=== PATIENT | male | born 1955 | race Caucasian/White ===

== ENCOUNTER 2022-12-30 08:12 | Outpatient (REF) | payer OTHER, SELFPAY ==
--- NOTE | ~2022-12-30 | XR_ITS ---
EXAMINATION: Bilateral knee x-ray CLINICAL INFORMATION: Rheumatoid arthritis COMPARISON: None. TECHNIQUE: 4 views of each knee FINDINGS: Right: Bone alignment is normal. No fracture or dislocation. Normal femoral tibial joints. Small osteophytes at the patellofemoral joint. Small osteophyte at the quadriceps tendon insertion to the patella. No joint effusion. Atherosclerotic disease. Left: Bone alignment is normal. No fracture or dislocation. Normal femoral tibial joints. Small osteophytes at the patellofemoral joint. Small osteophyte at the quadriceps tendon insertion to the patella and patellar tendon insertion. No joint effusion. XR/XR knee LT 3V IMPRESSION: Mild degenerative changes at the patellofemoral joints.
--- NOTE | ~2022-12-30 | XR_ITS ---
EXAMINATION: XR ELBOW, RIGHT XR ELBOW, LEFT CLINICAL INFORMATION: M06.9 - Rheumatoid arthritis, unspecified COMPARISON: None TECHNIQUE: Each elbow is imaged in 3 views. There is a total of 6 views. FINDINGS: Right: Normal bony mineralization. No fracture, dislocation, or elbow capsular effusion. No joint narrowing or erosive change or chondrocalcinosis. No epicondylar spurring. Minute olecranon spur. Left: There is soft tissue swelling overlying the olecranon. Some fine mineralization is present in region of distal triceps. There is no elbow capsular effusion. Bony mineralization is normal. There is no fracture, dislocation, destructive process, or joint narrowing. No erosive changes. There is small smooth oval mineralization/ossification in region of proximal common extensor tendon. XR/XR elbow LT min 3V IMPRESSION: Right: - Minute olecranon spur. Left: -Soft tissue swelling overlying olecranon. No elbow capsular effusion. -Fine mineralization in region of distal triceps. -Small smooth oval mineralization/ossification in region of proximal common extensor tendon.
--- NOTE | ~2022-12-30 | XR_ITS ---
EXAMINATION: Bilateral hip x-ray CLINICAL INFORMATION: Rheumatoid arthritis COMPARISON: None. TECHNIQUE: 2 views of each hip FINDINGS: Left: There is moderate osteoarthritis with joint space narrowing and osteophyte formation. No erosions. Bone mineralization is normal. No fracture or dislocation. Right: There is severe osteoarthritis with joint space narrowing, osteophyte formation and some subchondral cyst formation. Periarticular soft tissue ossifications inferiorly. No fracture or dislocation. There is atherosclerotic disease. There are degenerative changes of the visualized lower lumbar spine. There is evidence of previous lower abdominal hernia repair with mesh. XR/XR hip RT min 2V IMPRESSION: Bilateral hip osteoarthritis, right greater than left.
--- NOTE | ~2022-12-30 | XR_ITS ---
EXAMINATION: XR ELBOW, RIGHT XR ELBOW, LEFT CLINICAL INFORMATION: M06.9 - Rheumatoid arthritis, unspecified COMPARISON: None TECHNIQUE: Each elbow is imaged in 3 views. There is a total of 6 views. FINDINGS: Right: Normal bony mineralization. No fracture, dislocation, or elbow capsular effusion. No joint narrowing or erosive change or chondrocalcinosis. No epicondylar spurring. Minute olecranon spur. Left: There is soft tissue swelling overlying the olecranon. Some fine mineralization is present in region of distal triceps. There is no elbow capsular effusion. Bony mineralization is normal. There is no fracture, dislocation, destructive process, or joint narrowing. No erosive changes. There is small smooth oval mineralization/ossification in region of proximal common extensor tendon. XR/XR elbow RT min 3V IMPRESSION: Right: - Minute olecranon spur. Left: -Soft tissue swelling overlying olecranon. No elbow capsular effusion. -Fine mineralization in region of distal triceps. -Small smooth oval mineralization/ossification in region of proximal common extensor tendon.
--- NOTE | ~2022-12-30 | XR_ITS ---
EXAMINATION: Bilateral hip x-ray CLINICAL INFORMATION: Rheumatoid arthritis COMPARISON: None. TECHNIQUE: 2 views of each hip FINDINGS: Left: There is moderate osteoarthritis with joint space narrowing and osteophyte formation. No erosions. Bone mineralization is normal. No fracture or dislocation. Right: There is severe osteoarthritis with joint space narrowing, osteophyte formation and some subchondral cyst formation. Periarticular soft tissue ossifications inferiorly. No fracture or dislocation. There is atherosclerotic disease. There are degenerative changes of the visualized lower lumbar spine. There is evidence of previous lower abdominal hernia repair with mesh. XR/XR hip LT min 2V IMPRESSION: Bilateral hip osteoarthritis, right greater than left.
--- NOTE | ~2022-12-30 | XR_ITS ---
EXAMINATION: XR SHOULDER, RIGHT XR SHOULDER, LEFT CLINICAL INFORMATION: M06.9 - Rheumatoid arthritis, unspecified COMPARISON: None TECHNIQUE: There are 3 views of the right shoulder in 4 views of the left shoulder for a total of 7 views. FINDINGS: Right: No acute or healing fracture, dislocation, destructive process. There are degenerative changes glenohumeral joint with joint narrowing and mild subchondral sclerosis and spurring from the inferior glenoid and inferior medial humeral head. No erosive change or visible chondrocalcinosis. The acromioclavicular alignment is normal. There is focal mineralization at the distal rotator cuff likely infraspinatus or conjoined tendon. There is an old healed fracture right posterior seventh rib. Left: No acute or healing fracture, dislocation, or destructive process. Degenerative changes glenohumeral joints are of lesser severity than that on the right. There is a punctate calcification in region of distal infraspinatus tendon. The acromioclavicular alignment is normal. There are mild degenerative changes acromioclavicular joint. XR/XR shoulder RT min 2V IMPRESSION: - Bilateral degenerative changes glenohumeral joints, greater on the right. - Bilateral small focal calcific tendinosis distal rotator cuff, greater on right. - Mild degenerative changes left acromioclavicular joint. - Old healed fracture right posterior seventh rib.
--- NOTE | ~2022-12-30 | XR_ITS ---
EXAMINATION: XR HAND WRIST, RIGHT XR HAND WRIST, LEFT CLINICAL INFORMATION: M06.9 - Rheumatoid arthritis, unspecified COMPARISON: None TECHNIQUE: Each hand and wrist are imaged in 4 large [id number] images to include both areas. A navicular view of each wrist is also obtained. There are a total of 8 views, 4 on each side. FINDINGS: Right: Normal bony mineralization. No periarticular demineralization. Ulnar variance is neutral. The carpus shows no joint narrowing or erosive change or chondrocalcinosis. Mild narrowing third MCP. No erosion. PIP joints are unremarkable. There are osteoarthritic changes involving the DIP joints. No erosions. Left: Normal bony mineralization. No periarticular demineralization. Ulnar variance is neutral. The carpus shows no joint narrowing or erosive change or chondrocalcinosis. MCP and PIP joints are unremarkable. There are mild osteoarthritic changes DIP joints. No erosions. XR/XR hand wrist RT IMPRESSION: -Bilateral wrists unremarkable. No joint narrowing or erosive change. -Mild narrowing right third MCP. No erosion. -Bilateral DIP osteoarthritis, greater on right. No erosions.
--- NOTE | ~2022-12-30 | XR_ITS ---
EXAMINATION: Bilateral foot x-ray CLINICAL INFORMATION: Rheumatoid arthritis COMPARISON: None. TECHNIQUE: 3 views of each foot FINDINGS: Left: Bone alignment is normal. No fracture or dislocation. Joint spaces are normal. There is a small calcaneal spur at the Achilles tendon insertion. Soft tissues are otherwise normal. Right: Bone alignment is normal. No fracture or dislocation. There is osteoarthritis at the first MTP joint with joint space narrowing and osteophyte formation. Joint spaces are otherwise normal. There is a small calcaneal spur at the Achilles tendon insertion. There is soft tissue arterial calcification. XR/XR foot LT min 3V IMPRESSION: Left: Small calcaneal spur. Right: Osteoarthritis of the first MTP joint. Small calcaneal spur.
--- NOTE | ~2022-12-30 | XR_ITS ---
EXAMINATION: Bilateral foot x-ray CLINICAL INFORMATION: Rheumatoid arthritis COMPARISON: None. TECHNIQUE: 3 views of each foot FINDINGS: Left: Bone alignment is normal. No fracture or dislocation. Joint spaces are normal. There is a small calcaneal spur at the Achilles tendon insertion. Soft tissues are otherwise normal. Right: Bone alignment is normal. No fracture or dislocation. There is osteoarthritis at the first MTP joint with joint space narrowing and osteophyte formation. Joint spaces are otherwise normal. There is a small calcaneal spur at the Achilles tendon insertion. There is soft tissue arterial calcification. XR/XR foot RT min 3V IMPRESSION: Left: Small calcaneal spur. Right: Osteoarthritis of the first MTP joint. Small calcaneal spur.
--- NOTE | ~2022-12-30 | XR_ITS ---
EXAMINATION: XR HAND WRIST, RIGHT XR HAND WRIST, LEFT CLINICAL INFORMATION: M06.9 - Rheumatoid arthritis, unspecified COMPARISON: None TECHNIQUE: Each hand and wrist are imaged in 4 large [id number] images to include both areas. A navicular view of each wrist is also obtained. There are a total of 8 views, 4 on each side. FINDINGS: Right: Normal bony mineralization. No periarticular demineralization. Ulnar variance is neutral. The carpus shows no joint narrowing or erosive change or chondrocalcinosis. Mild narrowing third MCP. No erosion. PIP joints are unremarkable. There are osteoarthritic changes involving the DIP joints. No erosions. Left: Normal bony mineralization. No periarticular demineralization. Ulnar variance is neutral. The carpus shows no joint narrowing or erosive change or chondrocalcinosis. MCP and PIP joints are unremarkable. There are mild osteoarthritic changes DIP joints. No erosions. XR/XR hand wrist LT IMPRESSION: -Bilateral wrists unremarkable. No joint narrowing or erosive change. -Mild narrowing right third MCP. No erosion. -Bilateral DIP osteoarthritis, greater on right. No erosions.
--- NOTE | ~2022-12-30 | XR_ITS ---
EXAMINATION: Bilateral knee x-ray CLINICAL INFORMATION: Rheumatoid arthritis COMPARISON: None. TECHNIQUE: 4 views of each knee FINDINGS: Right: Bone alignment is normal. No fracture or dislocation. Normal femoral tibial joints. Small osteophytes at the patellofemoral joint. Small osteophyte at the quadriceps tendon insertion to the patella. No joint effusion. Atherosclerotic disease. Left: Bone alignment is normal. No fracture or dislocation. Normal femoral tibial joints. Small osteophytes at the patellofemoral joint. Small osteophyte at the quadriceps tendon insertion to the patella and patellar tendon insertion. No joint effusion. XR/XR knee standing BI IMPRESSION: Mild degenerative changes at the patellofemoral joints.
--- NOTE | ~2022-12-30 | XR_ITS ---
EXAMINATION: XR LUMBOSACRAL SPINE WITH OBLIQUES CLINICAL INFORMATION: M06.9 - Rheumatoid arthritis, unspecified COMPARISON: None available. TECHNIQUE: Lumbar spine is imaged in 5 views including oblique projections. FINDINGS: Normal lumbar segmentation with 5 nonrib-bearing lumbar vertebrae of normal height and normal lumbar lordosis. No lumbar vertebral compression or destructive process. There are variable multilevel degenerative disc changes lower thoracic and lumbar spine. No erosive change. Mild multilevel vertebral body spurring. There is variable mild bilateral facet degenerative changes. Borderline retrolisthesis of under 3 mm present at L2-L3. Oblique view show no spondylolysis. The SI joints and right sacrum are unremarkable. There are degenerative changes bilateral hips. XR/XR lumbar spine 4V min IMPRESSION: - Multilevel degenerative disc and degenerative facet changes. - No vertebral compression or destructive process. No erosive changes. - Borderline retrolisthesis L2-L3. No spondylolysis.
--- NOTE | ~2022-12-30 | XR_ITS ---
EXAMINATION: XR SHOULDER, RIGHT XR SHOULDER, LEFT CLINICAL INFORMATION: M06.9 - Rheumatoid arthritis, unspecified COMPARISON: None TECHNIQUE: There are 3 views of the right shoulder in 4 views of the left shoulder for a total of 7 views. FINDINGS: Right: No acute or healing fracture, dislocation, destructive process. There are degenerative changes glenohumeral joint with joint narrowing and mild subchondral sclerosis and spurring from the inferior glenoid and inferior medial humeral head. No erosive change or visible chondrocalcinosis. The acromioclavicular alignment is normal. There is focal mineralization at the distal rotator cuff likely infraspinatus or conjoined tendon. There is an old healed fracture right posterior seventh rib. Left: No acute or healing fracture, dislocation, or destructive process. Degenerative changes glenohumeral joints are of lesser severity than that on the right. There is a punctate calcification in region of distal infraspinatus tendon. The acromioclavicular alignment is normal. There are mild degenerative changes acromioclavicular joint. XR/XR shoulder LT min 2V IMPRESSION: - Bilateral degenerative changes glenohumeral joints, greater on the right. - Bilateral small focal calcific tendinosis distal rotator cuff, greater on right. - Mild degenerative changes left acromioclavicular joint. - Old healed fracture right posterior seventh rib.
--- NOTE | ~2022-12-30 | XR_ITS ---
EXAMINATION: Bilateral knee x-ray CLINICAL INFORMATION: Rheumatoid arthritis COMPARISON: None. TECHNIQUE: 4 views of each knee FINDINGS: Right: Bone alignment is normal. No fracture or dislocation. Normal femoral tibial joints. Small osteophytes at the patellofemoral joint. Small osteophyte at the quadriceps tendon insertion to the patella. No joint effusion. Atherosclerotic disease. Left: Bone alignment is normal. No fracture or dislocation. Normal femoral tibial joints. Small osteophytes at the patellofemoral joint. Small osteophyte at the quadriceps tendon insertion to the patella and patellar tendon insertion. No joint effusion. XR/XR knee RT 3V IMPRESSION: Mild degenerative changes at the patellofemoral joints.
[2022-12-30 09:57] LABS: MANUAL DIFF FLAG NO
[2022-12-30 10:20] LABS: MN% 33.1 %; PMN% 66.9 %; RBC Synovial Fluid 0.115 X10*6/uL
[2022-12-30 10:43] LABS: Basophils Absolute Auto 0.1 X10*3/uL (0.0-0.2); Basophils Percent Auto 0.8 % (0-2); Eosinophils Absolute Auto 0.4 X10*3/uL (0.0-0.4); Eosinophils Percent Auto 5.6 % (0-4); Hemoglobin 12.9 g/dl (14.0-18.0); Imm Gran Abs Auto 0.03 X10*3/uL (0.00-0.03); Imm Gran Pct Auto 0.4 % (0.0-0.4); Lymphocytes Absolute Auto 0.9 X10*3/uL (1.2-4.9); Lymphocytes Percent Auto 12.4 % (20-40); Mean Corpuscular HGB Conc 33.1 g/dl (31.0-36.0); Mean Corpuscular Hemoglobin 30.9 pg (27.0-33.0); Mean Corpuscular Volume 93.3 fL (80.0-98.0); Mean Platelet Volume 11.6 fL (9.4-12.4); Monocytes Absolute Auto 0.7 X10*3/uL (0.1-1.2); Monocytes Percent Auto 9.3 % (2-11); Neutrophils Absolute Auto 5.1 x10*3/uL (2.0-8.3); Neutrophils Percent Auto 71.5 % (45-73); Platelet Count 180 X10*3/uL (160-400); Red Blood Count 4.18 X10*6/uL (4.60-5.80); Red Cell Distribution Width 12.1 % (11.0-16.0); White Blood Count 7.1 X10*3/uL (4.8-10.8)
[2022-12-30 11:01] LABS: BF Shift QC OK YES; Lymphocytes Synovial Fluid 10 %; Monocytes Synovial Fluid 16 %; Neutrophils Synovial Fluid 74 %
[2022-12-30 11:11] LABS: Alanine Aminotransferase 13 U/L (0-40); Albumin Level 4.1 g/dL (3.5-5.0); Alkaline Phosphatase 63 U/L (39-117); Anion Gap 10 (12-20); Aspartate Amino Transferase 13 U/L (5-37); Bilirubin Total 0.8 mg/dL (0.0-1.0); Blood Urea Nitrogen 10 mg/dL (9-16); C Reactive Protein 0.14 mg/dL (< or = 0.50); Calcium 8.9 mg/dL (8.4-10.2); Carbon Dioxide 29 mmol/L (22-29); Chloride 106 mmol/L (96-108); Estimated Glomerular Filt Rate > 60; Glucose Random 97 mg/dL (60-115); Potassium 4.5 mmol/L (3.3-5.1); Sodium 140 mmol/L (135-145); Total Protein 6.5 g/dL (6.5-8.0); Uric Acid 3.4 mg/dL (3.4-7.0)
[2022-12-30 11:22] LABS: Erythrocyte Sedimentation Rate 10 MM/HR (0-15)
[2022-12-30 11:34] LABS: HBS Num1 0.18 mIU/mL (0-7.99); HBc Num1 0.06 S/CO (0.00-0.79); HBsAGNum1 0.29 S/CO (0.00-0.99); Hepatitis A Antibody IgM 0.19 Index (0-0.79); Hepatitis B Core Antibody Nonreactive (Nonreactive); Hepatitis B Surface Antigen Negative (Negative); ~HepC Num1 0.14 S/CO (0.00-0.79); ~Hepatitis A Antibody IgM Nonreactive (Nonreactive); ~Hepatitis B Surface Antibody NONREACTIVE (Nonreactive); ~Hepatitis C Antibody Nonreactive (Nonreactive)
[2022-12-30 11:39] LABS: Source Synovial Fluid LEFT ELBOW
[2023-01-02 02:03] LABS: TS Negative Control Passed; TS Panel A 8; TS Panel B 8; TS Positive Control Passed; TSpotTB Positive (Negative)
[2023-01-04 00:08] LABS: Prot Elec - Albumin 3.9 g/dL (3.8-4.8); Prot Elec - Alpha1 0.4 g/dL (0.2-0.3); Prot Elec - Alpha2 0.7 g/dL (0.5-0.9); Prot Elec - Beta 1 0.4 g/dL (0.4-0.6); Prot Elec - Beta 2 0.2 g/dL (0.2-0.5); Prot Elec - Total Protein 6.5 g/dL (6.1-8.1)
[2023-01-06 10:59] LABS: Cyclic Citrullinated Peptide >250 UNITS
[2023-01-13 18:33] LABS: IgA 169 mg/dL (70-320); IgG 1059 mg/dL (600-1540); IgM 59 mg/dL (50-300)
== END 2022-12-30 08:13 | disposition home or self-care (01) ==
LOC: HO.LAB 08:12
PROVIDERS: Visit Provider Student in an Organized Health Care Education/Training Program
DX: M70.22 Olecranon bursitis, left elbow (principal); M25.522 Pain in left elbow; M10.9 Gout, unspecified; M06.9 Rheumatoid arthritis, unspecified; M13.0 Polyarthritis, unspecified; M25.50 Pain in unspecified joint; M54.9 Dorsalgia, unspecified; M54.2 Cervicalgia; Z79.899 Other long term (current) drug therapy; Z11.59 Encounter for screening for other viral diseases; Z72.89 Other problems related to lifestyle; Z11.7 Encounter for testing for latent tuberculosis infection
CPT/HCPCS: 36415; 72110; 73030; 73080; 73110; 73130; 73502; 73562; 73564; 73565; 73630; 80053; 82784; 84165; 84550; 85025; 85652; 86140; 86200; 86334; 86431; 86481; 86704; 86706; 86709; 86803; 87070; 87073; 87205; 87340; 89051; 89060; 99202

== ENCOUNTER 2023-02-24 14:10 | Outpatient (AMB) | payer OTHER, SELFPAY ==
[2023-02-24 14:13] VITALS: BP 102/60; PULSE 54; TEMP 36.1; O2SAT 99; BMI 27.2
--- NOTE | 2023-02-24 14:13 | MHC.OFFVIS ---
Intake Vital Signs 02/24/23 14:13 Height 5 ft 10 in Weight 189 lb 6.033 oz BMI 27.2 BP 102/60 Blood Pressure Location Rt brachial Position Sitting Pulse 54 Pulse Source Pulse Oximeter Temp 97.0 F Temp Source Skin Pulse Oximetry (%) 99 Intake Visit Reasons: gout/RA Intake Note: Pt seen today for follow up. C/o right hand and wrist pain. S/p cortisone injections today Marilee Felipe [facility] hand surgeon. States pain is constant every day; hips, knees, ankles Cooperative Extension Agent Required: No Accompanied by: Spouse Sarah Allergies bee pollen Allergy (Mild, Verified 02/24/23 14:17) Unknown codeine Allergy (Mild, Verified 02/24/23 14:17) Unknown honey Allergy (Mild, Verified 02/24/23 14:17) Unknown Medication List - Last Reconciled 02/24/23 by Vanessa Encarnacion MD albuterol sulfate 90 mcg/actuation (Ventolin HFA) 0 mcg inhalation aspirin 81 mg PO DAILY atorvastatin 80 mg PO DAILY bupropion HCl 450 mg PO DAILY calcium carbonate-vitamin D3 600 mg-10 mcg (400 unit) 1 tab PO BID celecoxib (Celebrex) 200 mg PO BID dicyclomine 10 mg PO QID PRN epinephrine IM ONCE PRN ferrous sulfate 325 mg PO DAILY fluticasone propionate 50 mcg/actuation 2 sprays intranasal DAILY hydrocodone-acetaminophen 10-325 mg 1 tab PO BID PRN lactulose 15 mL PO DAILY PRN levothyroxine 125 mcg PO DAILY magnesium oxide 400 mg PO DAILY potassium chloride ER (Klor-Con M) 20 mEq PO TID prednisone 10 mg PO DAILY HPI HPI Comments History of Present Illness Details Patient returns for follow-up after completion of his blood work and x-rays. States that the prednisone taper helped the left elbow swelling, however it came back after prednisone was discontinued. He states that prednisone did not help his other joints much. Today he had a steroid injection in his right hand knuckles by a hand surgeon. He was evaluated by Infectious Disease and a blood test was ordered. He has not been started on treatment. Mentions that he had a CT scan of the lung within the last 2-3 weeks ordered by his PCP. Initial history: This is a 67-year-old male was referred for evaluation of multiple joint pain and positive rheumatoid factor. Patient stated that he has had joint pain for years. He has had neck pain and low back pain for years. He also has right hip pain. Stated that he received intra-articular hip injection about a year ago which provided some moderate relief, he had another injection a few months after which was not helpful. He also received a couple of knee steroid injections, the 1st 1 was helpful and the 2nd 1 was not as helpful. Over the last 1-2 years he has started to have right hand pain and swelling across his MCPs. He also developed a red bump on his right 5th MCP. He also has swelling of his left elbow that is only tender when he leans on that elbow. Per the however he gets intermittent attacks of significant pain and swelling of the elbow. He never procedures for his low back pain by Pain Management. He is on hydrocodone. He is unaware of any family history of autoimmune rheumatic disease. Denies any confirmed history of kidney stones [facility] Medical History (Updated 02/24/23 @ 14:54 by Vanessa Encarnacion MD) Anemia Bradycardia Carotid artery stenosis Central sleep apnea syndrome Coronary arteriosclerosis Ex-smoker Hyperlipidemia Hypothyroidism Irritable bowel syndrome Major depressive disorder Moderate pain Myocardial infarction Neuropathy Osteoarthritis Peripheral vascular disease Polyarthropathy Productive cough Surgical History H/O colonoscopy H/O eye surgery Hx of hand surgery Stented coronary artery Family History Brother Malignant tumor of colon Father Carcinoma of prostate Maternal Grandmother Cancer of unknown origin Social History Alcohol intake: never Patient Tobacco Use Status: Former Tobacco user Current occupational status: retired 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 Review of Systems [facility] Reports back pain, Reports arthralgias, Reports joint swelling and Reports stiffness Physical Exam Vital Signs: Last Vital Signs Temp 97.0 F 02/24/23 14:13 Pulse 54 02/24/23 14:13 BP 102/60 02/24/23 14:13 Pulse Ox 99 02/24/23 14:13 BMI result Body Mass Index 27.2 Const General: cooperative, healthy appearing and comfortable Nutritional Appearance: overweight Orientation/consciousness: patient oriented x3 Limitations: no limitations HEENT Head: Yes normocephalic and Yes atraumatic Mouth: moist mucous membranes Resp Effort & Inspection: normal respiratory effort and able to speak in complete sentences Neuro General: patient oriented x3 Extrem Other: Swelling across his right 3rd MCP, reddish nontender nodule on the dorsal aspect of right 5th MCP Bilateral 1st CMC joint tenderness Left olecranon bursa boggy swelling without erythema warmth or tenderness Dupuytren's contracture of his left hand Normal range of motion of both shoulders with some stiffness Pain for range of motion of his right hip Some swelling and tenderness on the outer aspect of his left 5th MTP Assessment & Plan Assessment & Plan (1) Seropositive rheumatoid arthritis: Comment: ++RF+++CCP dx 01/22 Code(s): M05.9 - Rheumatoid arthritis with rheumatoid factor, unspecified Plan: This is a 67-year-old male who presents for evaluation of multiple swollen and tender joints. Diffuse synovitis on exam. Labs showing positive RF and anti CCP. Left colic renal her bursitis arthrocentesis consistent with inflammatory arthritis no evidence of crystalline arthritis. Will need to start DMARDs however patient has a positive QuantiFERON test. Patient was evaluated by Infectious Disease but has not been started on latent TB yet. His infectious disease specialist is Dr. Dmitriy Desir in [place]. Will await evaluation by Infectious Disease as DMARDs can cause immune suppression and potentially interfere with antituberculous medications. Patient stated he had a recent CT scan of his lungs. Will request records from PCP For now stay on prednisone 10 mg daily. Follow-up in 2 months (2) Positive TB test: Code(s): R76.11 - Nonspecific reaction to tuberculin skin test without active tuberculosis Plan: Management as above Plan I spent 26 minutes reviewing patient's chart, evaluating patient, placing orders counseling patient and documenting in the chart Medications: New prednisone 10 mg PO DAILY 30 tabs 1RF Coding Level of Care Code Est Pt Level 4 (51712) Diagnoses Seropositive rheumatoid arthritis M05.9 Positive TB test R76.11
== END 2023-02-24 14:49 | disposition home or self-care (01) ==
PROVIDERS: PCP Nurse Practitioner Gerontology; Visit Provider Student in an Organized Health Care Education/Training Program
DX: M05.79 Rheumatoid arthritis with rheumatoid factor of multiple sites without organ or systems involvement (principal); R76.11 Nonspecific reaction to tuberculin skin test without active tuberculosis
CPT/HCPCS: 99214

== ENCOUNTER → 2023-02-24 14:10 | Outpatient (BNVA) | payer OTHER, SELFPAY | PROVIDERS: PCP Nurse Practitioner Gerontology; Visit Provider Student in an Organized Health Care Education/Training Program | DX: M05.9 Rheumatoid arthritis with rheumatoid factor, unspecified (principal); R76.11 Nonspecific reaction to tuberculin skin test without active tuberculosis | CPT/HCPCS: 99212 ==

== ENCOUNTER 2023-04-27 14:14 | Outpatient (AMB) | payer MEDICARE, MEDICAID, SELFPAY ==
[2023-04-27 14:26] VITALS: BP 122/66; PULSE 87; TEMP 35.9; O2SAT 95; BMI 26.9
--- NOTE | 2023-04-27 14:26 | MHC.OFFVIS ---
Intake Vital Signs 04/27/23 14:26 Height 5 ft 10 in Weight 187 lb 6.287 oz BMI 26.9 BP 122/66 Blood Pressure Location Rt brachial Position Sitting Pulse 87 Pulse Source Pulse Oximeter Temp 96.6 F L Temp Source Skin Pulse Oximetry (%) 95 Intake Visit Reasons: RA Intake Note: Pt seen today for RA follow up. States he was taking celebrex 100mg and then at the pharmacy he was given 200mg. He is unsure which dose to continue; he ran out of 200mg tablets but has 100mg tablets at home still. He also reports last week he got a cortisone injection with NEOS right hip. 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 Accompanied by: Spouse Allergies bee pollen Allergy (Mild, Verified 04/27/23 14:36) Unknown codeine Allergy (Mild, Verified 04/27/23 14:36) Unknown honey Allergy (Mild, Verified 04/27/23 14:36) Unknown Medication List - Last Reconciled 04/27/23 by Vanessa Encarnacion MD albuterol sulfate 90 mcg/actuation (Ventolin HFA) 0 mcg inhalation aspirin 81 mg PO DAILY atorvastatin 80 mg PO DAILY bupropion HCl 450 mg PO DAILY calcium carbonate-vitamin D3 600 mg-10 mcg (400 unit) 1 tab PO BID celecoxib (Celebrex) 200 mg PO BID celecoxib 100 mg PO BID dicyclomine 10 mg PO QID PRN epinephrine IM ONCE PRN ferrous sulfate 325 mg PO DAILY fluticasone propionate 50 mcg/actuation 2 sprays intranasal DAILY hydrocodone-acetaminophen 10-325 mg 1 tab PO BID PRN lactulose 15 mL PO DAILY PRN levothyroxine 125 mcg PO DAILY magnesium oxide 400 mg PO DAILY potassium chloride ER (Klor-Con M) 20 mEq PO TID HPI HPI Comments History of Present Illness Details 68-year-old male with seropositive RA returns for follow-up. Patient states that he is doing fairly well currently. Recently he received steroid injection in his hip which was not very helpful. He received a steroid injection in his right hand knuckles a few months ago in in they were helpful. He remains on prednisone 10 mg daily which is somewhat helpful. Patient was evaluated once by Infectious Disease and was not started on latent TB treatment. Initial history: This is a 67-year-old male was referred for evaluation of multiple joint pain and positive rheumatoid factor. Patient stated that he has had joint pain for years. He has had neck pain and low back pain for years. He also has right hip pain. Stated that he received intra-articular hip injection about a year ago which provided some moderate relief, he had another injection a few months after which was not helpful. He also received a couple of knee steroid injections, the 1st 1 was helpful and the 2nd 1 was not as helpful. Over the last 1-2 years he has started to have right hand pain and swelling across his MCPs. He also developed a red bump on his right 5th MCP. He also has swelling of his left elbow that is only tender when he leans on that elbow. Per the however he gets intermittent attacks of significant pain and swelling of the elbow. He never procedures for his low back pain by Pain Management. He is on hydrocodone. He is unaware of any family history of autoimmune rheumatic disease. Denies any confirmed history of kidney stones [facility] Medical History Ex-smoker Productive cough Moderate pain Polyarthropathy Osteoarthritis Irritable bowel syndrome Peripheral vascular disease Carotid artery stenosis Bradycardia Coronary arteriosclerosis Myocardial infarction Neuropathy Central sleep apnea syndrome Major depressive disorder Anemia Hyperlipidemia Hypothyroidism Surgical History Hx of hand surgery Stented coronary artery H/O eye surgery H/O colonoscopy Family History Brother Malignant tumor of colon Father Carcinoma of prostate Maternal Grandmother Cancer of unknown origin Social History Alcohol intake: never Patient Tobacco Use Status: Former Tobacco user Current occupational status: retired 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 Review of Systems [facility] [place] Reports back pain, Reports arthralgias and Reports stiffness Physical Exam Vital Signs: Last Vital Signs Temp 96.6 F L 04/27/23 14:26 Pulse 87 04/27/23 14:26 BP 122/66 04/27/23 14:26 Pulse Ox 95 04/27/23 14:26 BMI result Body Mass Index 26.9 Const General: cooperative, healthy appearing and comfortable Nutritional Appearance: overweight Orientation/consciousness: patient oriented x3 Limitations: no limitations HEENT Head: Yes normocephalic and Yes atraumatic Mouth: moist mucous membranes Resp Effort & Inspection: normal respiratory effort and able to speak in complete sentences Neuro General: patient oriented x3 Extrem Other: Mild erythema of his right hand MCPs without swelling or tenderness, reddish nontender nodule on the dorsal aspect of right 5th MCP Bilateral 1st CMC joint tenderness Left olecranon bursa boggy swelling without erythema warmth or tenderness Dupuytren's contracture of his left hand Normal range of motion of both shoulders with some stiffness Bilateral knee crepitus Pain for range of motion of his right hip Assessment & Plan Assessment & Plan (1) Seropositive rheumatoid arthritis: Comment: ++RF+++CCP dx 01/22 Code(s): M05.9 - Rheumatoid arthritis with rheumatoid factor, unspecified Plan: This is a 68-year-old male who presents for evaluation of multiple swollen and tender joints. Diffuse synovitis on initial exam. Labs showing high titer positive RF and anti CCP. Left olecranon bursitis arthrocentesis consistent with inflammatory arthritis no evidence of crystalline arthritis. Will need to start DMARDs however patient has a positive QuantiFERON test. Patient was evaluated by Infectious Disease but has not been started on latent TB yet. Patient needs to be started on latent TB treatment 1st before DMARDs can be started His infectious disease specialist is Dr. Dmitriy Desir in [place]. Will await evaluation by Infectious Disease as DMARDs can cause immune suppression and potentially interfere with antituberculous medications. For now stay on prednisone 10 mg daily. Follow-up in 2 months (2) Positive TB test: Code(s): R76.11 - Nonspecific reaction to tuberculin skin test without active tuberculosis Plan: Management as above Plan I spent 26 minutes reviewing patient's chart, evaluating patient, counseling patient and documenting in the chart Coding Level of Care Code Est Pt Level 4 (72523) Diagnoses Seropositive rheumatoid arthritis M05.9 Positive TB test R76.11
== END 2023-04-27 15:09 | disposition home or self-care (01) ==
PROVIDERS: PCP Nurse Practitioner Gerontology; Visit Provider Student in an Organized Health Care Education/Training Program
DX: M05.89 Other rheumatoid arthritis with rheumatoid factor of multiple sites (principal); R76.11 Nonspecific reaction to tuberculin skin test without active tuberculosis
CPT/HCPCS: 99213

== ENCOUNTER → 2023-04-27 14:14 | Outpatient (BNVA) | payer MEDICARE, MEDICAID, SELFPAY | PROVIDERS: PCP Nurse Practitioner Gerontology; Visit Provider Student in an Organized Health Care Education/Training Program | DX: M05.9 Rheumatoid arthritis with rheumatoid factor, unspecified (principal); R76.11 Nonspecific reaction to tuberculin skin test without active tuberculosis; Z79.52 Long term (current) use of systemic steroids | CPT/HCPCS: 99212 ==

== ENCOUNTER 2023-08-24 15:32 | Outpatient (AMB) | payer OTHER, SELFPAY ==
[2023-08-24 15:38] VITALS: BP 110/64; PULSE 63; TEMP 35.8; O2SAT 94; BMI 28.1
--- NOTE | 2023-08-24 15:38 | MHC.OFFVIS ---
Intake Vital Signs 08/24/23 15:38 Height 5 ft 10 in Weight 195 lb 15.855 oz BMI 28.1 BP 110/64 Blood Pressure Location Rt brachial Position Sitting Pulse 63 Pulse Source Pulse Oximeter Temp 96.5 F L Temp Source Skin Pulse Oximetry (%) 94 Oxygen Delivery Method Room Air Intake Visit Reasons: RA Intake Note: Patient last seen 04/27/23 presents today for follow up. Reports new medication trelegy inhaler. 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 Accompanied by: Spouse Allergies bee pollen Allergy (Mild, Verified 08/24/23 15:40) Unknown codeine Allergy (Mild, Verified 08/24/23 15:40) Unknown honey Allergy (Mild, Verified 08/24/23 15:40) Unknown Medication List - Last Reconciled 08/24/23 by Vanessa Encarnacion MD albuterol sulfate 90 mcg/actuation (Ventolin HFA) 0 mcg inhalation aspirin 81 mg PO DAILY atorvastatin 80 mg PO DAILY bupropion HCl 450 mg PO DAILY calcium carbonate-vitamin D3 600 mg-10 mcg (400 unit) 1 tab PO BID celecoxib (Celebrex) 200 mg PO BID celecoxib 100 mg PO BID dicyclomine 10 mg PO QID PRN epinephrine IM ONCE PRN ferrous sulfate 325 mg PO DAILY fluticasone propionate 50 mcg/actuation 2 sprays intranasal DAILY bucmiyghpdy-twrpyulex-vabjrzqm 100-62.5-25 mcg (Trelegy Ellipta) 1 ea inhalation DAILY hydrocodone-acetaminophen 10-325 mg 1 tab PO BID PRN lactulose 15 mL PO DAILY PRN levothyroxine 125 mcg PO DAILY magnesium oxide 400 mg PO DAILY potassium chloride ER (Klor-Con M) 20 mEq PO TID prednisone 10 mg PO DAILY HPI HPI Comments History of Present Illness Details 68-year-old male with seropositive RA returns for follow-up. Patient states that he is doing fairly well currently. He is on prednisone 10 mg daily. He continues to get intermittent joint pain and swelling including his wrists, fingers, shoulders. Bilateral hip pain, worse on the right. Initial history: This is a 67-year-old male was referred for evaluation of multiple joint pain and positive rheumatoid factor. Patient stated that he has had joint pain for years. He has had neck pain and low back pain for years. He also has right hip pain. Stated that he received intra-articular hip injection about a year ago which provided some moderate relief, he had another injection a few months after which was not helpful. He also received a couple of knee steroid injections, the 1st 1 was helpful and the 2nd 1 was not as helpful. Over the last 1-2 years he has started to have right hand pain and swelling across his MCPs. He also developed a red bump on his right 5th MCP. He also has swelling of his left elbow that is only tender when he leans on that elbow. Per the however he gets intermittent attacks of significant pain and swelling of the elbow. He never procedures for his low back pain by Pain Management. He is on hydrocodone. He is unaware of any family history of autoimmune rheumatic disease. Denies any confirmed history of kidney stones [facility] Medical History Ex-smoker Productive cough Moderate pain Polyarthropathy Osteoarthritis Irritable bowel syndrome Peripheral vascular disease Carotid artery stenosis Bradycardia Coronary arteriosclerosis Myocardial infarction Neuropathy Central sleep apnea syndrome Major depressive disorder Anemia Hyperlipidemia Hypothyroidism Surgical History Hx of hand surgery Stented coronary artery H/O eye surgery H/O colonoscopy Family History Brother Malignant tumor of colon Father Carcinoma of prostate Maternal Grandmother Cancer of unknown origin Social History Alcohol intake: never Patient Tobacco Use Status: Former Tobacco user Current occupational status: retired 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 Review of Systems [facility] [place] Reports back pain, Reports arthralgias and Reports stiffness Physical Exam Vital Signs: Last Vital Signs Temp 96.5 F L 08/24/23 15:38 Pulse 63 08/24/23 15:38 BP 110/64 08/24/23 15:38 Pulse Ox 94 08/24/23 15:38 Oxygen Delivery Method Room Air 08/24/23 15:38 BMI result Body Mass Index 28.1 Const General: cooperative, healthy appearing and comfortable Nutritional Appearance: overweight Orientation/consciousness: patient oriented x3 Limitations: no limitations HEENT Head: Yes normocephalic and Yes atraumatic Mouth: moist mucous membranes Resp Effort & Inspection: normal respiratory effort and able to speak in complete sentences Auscultation: clear to auscultation bilaterally Neuro General: patient oriented x3 Extrem Other: Mild erythema of his right hand MCPs without swelling or tenderness, reddish nontender nodule on the dorsal aspect of right 5th MCP Bilateral 1st CMC joint tenderness Dupuytren's contracture of his left hand Normal range of motion of both shoulders with some stiffness Bilateral knee crepitus Painful range of motion of his right hip No ankle swelling or tenderness bilaterally Negative MTP squeeze test bilaterally Assessment & Plan Assessment & Plan (1) Seropositive rheumatoid arthritis: Comment: ++RF+++CCP dx 01/22 left olecranon synovial fluid inflammatory Code(s): M05.9 - Rheumatoid arthritis with rheumatoid factor, unspecified Plan: This is a 68-year-old male with seropositive RA who presents for follow-up. Doing fairly well on prednisone 10 mg daily but gained about 8 lb. Will need to start DMARDs. Discussed risks and benefits of methotrexate. Patient agreed to proceed. Will start methotrexate 15 mg weekly for 2 weeks then 20 mg once weekly. Start folic acid 1 mg daily. Continue prednisone 10 mg daily for 1 more week then 7.5 mg daily for 2 weeks and remain on 5 mg daily Labs today and before next visit in 2 months (2) Positive TB test: Code(s): R76.11 - Nonspecific reaction to tuberculin skin test without active tuberculosis Plan: T spot test was positive at our lab. QuantiFERON test was negative subsequently. Patient did not get started on latent TB treatment. 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 Discussed different side effects. Patient has 1 or 2 drinks a week at the most. Plan I spent 26 minutes reviewing patient's chart, evaluating patient, ordering diagnostic workup, counseling patient & his and documenting in the chart Orders: Orders Complete Blood Count Auto Diff 2 Months Z79.631 - terminal operations supervisor (current) use of antimetabolite agent Comprehensive Met. Panel 2 Months Z79.631 - long-term (current) use of antimetabolite agent C Reactive Protein Today Z79.631 - long-term (current) use of antimetabolite agent Erythrocyte Sedimentation Rate Today Z79.631 - long-term (current) use of antimetabolite agent T Spot TB Today R76.11 - Nonspecific reaction to tuberculin skin test without active tuberculosis C Reactive Protein 2 Months Z79.631 - terminal operations supervisor (current) use of antimetabolite agent Erythrocyte Sedimentation Rate 2 Months Z79.631 - terminal operations supervisor (current) use of antimetabolite agent Complete Blood Count Auto Diff Today Z79.631 - terminal operations supervisor (current) use of antimetabolite agent Comprehensive Met. Panel Today Z79.631 - long-term (current) use of antimetabolite agent Medications: New folic acid 1 mg PO DAILY 90 tabs 1RF methotrexate sodium Take 6 tabs once weekly for 2 weeks then 8 tabs once weekly 64 tabs 0RF prednisone Take 3 tabs daily for 2 weeks then remain on 2 tabs daily 100 tabs 0RF Coding Level of Care Code Est Pt Level 4 (55966) Diagnoses Seropositive rheumatoid arthritis M05.9 Positive TB test R76.11 long-term methotrexate user Z79.631
== END 2023-08-24 16:16 | disposition home or self-care (01) ==
PROVIDERS: PCP Nurse Practitioner Gerontology; Visit Provider Student in an Organized Health Care Education/Training Program
DX: M05.79 Rheumatoid arthritis with rheumatoid factor of multiple sites without organ or systems involvement (principal); R76.11 Nonspecific reaction to tuberculin skin test without active tuberculosis; Z79.631 Long term (current) use of antimetabolite agent
CPT/HCPCS: 99214

== ENCOUNTER 2023-08-24 15:32 | Outpatient (REF) | payer OTHER, SELFPAY ==
[2023-08-24 16:48] LABS: MANUAL DIFF FLAG NO
[2023-08-24 16:56] LABS: Basophils Absolute Auto 0.1 X10*3/uL (0.0-0.2); Basophils Percent Auto 0.4 % (0-2); Eosinophils Absolute Auto 0.1 X10*3/uL (0.0-0.4); Eosinophils Percent Auto 0.9 % (0-4); Hematocrit 41.1 % (42.0-52.0); Hemoglobin 13.5 g/dl (14.0-18.0); Imm Gran Abs Auto 0.17 X10*3/uL (0.00-0.03); Imm Gran Pct Auto 1.5 % (0.0-0.4); Lymphocytes Absolute Auto 0.7 X10*3/uL (1.2-4.9); Lymphocytes Percent Auto 5.8 % (20-40); Mean Corpuscular HGB Conc 32.8 g/dl (31.0-36.0); Mean Corpuscular Hemoglobin 32.1 pg (27.0-33.0); Mean Corpuscular Volume 97.6 fL (80.0-98.0); Mean Platelet Volume 10.7 fL (9.4-12.4); Monocytes Absolute Auto 0.6 X10*3/uL (0.1-1.2); Monocytes Percent Auto 5.5 % (2-11); Neutrophils Percent Auto 85.9 % (45-73); Platelet Count 229 X10*3/uL (160-400); Red Blood Count 4.21 X10*6/uL (4.60-5.80); Red Cell Distribution Width 11.9 % (11.0-16.0); White Blood Count 11.7 X10*3/uL (4.8-10.8)
[2023-08-24 17:20] LABS: Alanine Aminotransferase 23 U/L (0-40); Albumin Level 4.1 g/dL (3.5-5.0); Alkaline Phosphatase 64 U/L (39-117); Anion Gap 12 (12-20); Aspartate Amino Transferase 13 U/L (5-37); Bilirubin Total 0.5 mg/dL (0.0-1.0); Blood Urea Nitrogen 13 mg/dL (9-16); C Reactive Protein 0.25 mg/dL (< or = 0.50); Calcium 9.3 mg/dL (8.4-10.2); Carbon Dioxide 30 mmol/L (22-29); Chloride 102 mmol/L (96-108); Estimated Glomerular Filt Rate > 60; Glucose Random 94 mg/dL (60-115); Potassium 4.5 mmol/L (3.3-5.1); Sodium 139 mmol/L (135-145)
[2023-08-24 17:37] LABS: Erythrocyte Sedimentation Rate 9 MM/HR (0-15)
[2023-08-27 08:53] LABS: TS Negative Control Passed; TS Panel A 0; TS Panel B 0; TS Positive Control Passed; TSpotTB Negative (Negative)
== END 2023-08-24 15:33 | disposition home or self-care (01) ==
LOC: HO.LAB 15:32
PROVIDERS: PCP Nurse Practitioner Gerontology; Visit Provider Student in an Organized Health Care Education/Training Program
DX: M05.9 Rheumatoid arthritis with rheumatoid factor, unspecified (principal); M25.50 Pain in unspecified joint; R76.11 Nonspecific reaction to tuberculin skin test without active tuberculosis; Z79.631 Long term (current) use of antimetabolite agent; Z79.899 Other long term (current) drug therapy
CPT/HCPCS: 36415; 80053; 85025; 85652; 86140; 86481; 99212

== ENCOUNTER 2023-10-25 13:22 | Outpatient (AMB) | payer OTHER, SELFPAY ==
--- NOTE | 2023-10-25 13:23 | A.OFFVIS_ITS ---
Intake Vital Signs 10/25/23 13:34 Height 5 ft 10 in Weight 186 lb 11.704 oz BMI 26.8 BP 110/84 Blood Pressure Location Rt brachial Position Sitting Pulse 77 Pulse Source Pulse Oximeter Temp 97.1 F Temp Source Skin Pulse Oximetry (%) 96 Oxygen Delivery Method Room Air Intake Visit Reasons: RA Intake Note: Patient last seen 08/24/23 presents today for follow up and test results. Reports feeling worse the day after taking MTX. Family Caseworker Required: No Accompanied by: Spouse Allergies bee pollen Allergy (Mild, Verified 10/25/23 13:27) Unknown codeine Allergy (Mild, Verified 10/25/23 13:27) Unknown honey Allergy (Mild, Verified 10/25/23 13:27) Unknown Medication List - Last Reconciled 10/25/23 by Vanessa Encarnacion MD albuterol sulfate 90 mcg/actuation (Ventolin HFA) 0 mcg inhalation aspirin 81 mg PO DAILY atorvastatin 80 mg PO DAILY bupropion HCl 450 mg PO DAILY calcium carbonate-vitamin D3 600 mg-10 mcg (400 unit) 1 tab PO BID celecoxib 100 mg PO BID dextromethorphan-guaifenesin 30-600 mg 1 tab the day you take Methotrexate & another tab the day after dicyclomine 10 mg PO QID PRN epinephrine IM ONCE PRN ferrous sulfate 325 mg PO DAILY fluticasone propionate 50 mcg/actuation 2 sprays intranasal DAILY meoakozayll-ayavakxri-vfuougks 100-62.5-25 mcg (Trelegy Ellipta) 1 ea inhalation DAILY folic acid 1 mg PO DAILY hydrocodone-acetaminophen 10-325 mg 1 tab PO BID PRN lactulose 15 mL PO DAILY PRN levothyroxine 125 mcg PO DAILY magnesium oxide 400 mg PO DAILY methotrexate sodium 20 mg (8 x 2.5 mg) PO QWEEK potassium chloride ER (Klor-Con M) 20 mEq PO TID prednisone 5 mg (2 x 2.5 mg) PO DAILY HPI HPI Comments History of Present Illness Details 68-year-old male with seropositive RA re turns for follow-up. He is on methotrexate 20 mg weekly, folic acid 1 mg daily and prednisone 5 mg daily. States that he has been doing fairly well overall. Continues to have back pain and intermittent right hip pain. Feels that the swelling of his hands has come down. Feels some stomach upset and fatigue the day after he takes methotrexate Initial history: This is a 67-year-old male was referred for evaluation of mu ltiple joint pain and positive rheumatoid factor. Patient stated that he has had joint pain for years. He has had neck pain and low back pain for years. He also has right hip pain. Stated that he received intra-articular hip injection about a year ago which provided some moderate relief, he had another injection a few months after which was not helpful. He also received a couple of knee stero id injections, the 1st 1 was helpful and the 2nd 1 was not as helpful. Over the last 1-2 years he has started to have right hand pain and swelling across his MCPs. He also developed a red bump on his right 5th MCP. He also has swelling of his left elbow that is only tender when he leans on that elbow. Per the however he gets intermittent attacks of significant pain and swelling of the elb ow. He never procedures for his low back pain by Pain Management. He is on hydrocodone. He is unaware of any family history of autoimmune rheumatic disease. Denies any confirmed history of kidney stones [facility] Medical History Ex-smoker Productive cough Moderate pain Polyarthropathy Osteoarthritis Irritable bowel syndrome Peripheral vascular disease Carotid artery stenosis Bradycardia Coronary arteriosclerosis Myocardial infarction Neuropathy Central sleep apnea syndrome Major depressive disorder Anemia Hyperlipidemia Hypothyroidism Surgical History Hx of hand surgery Stented coronary artery H/O eye surgery H/O colonoscopy Family History Brother Malignant tumor of colon Father Carcinoma of prostate Maternal Grandmother Cancer of unknown origin Social History Alcohol intake: never Patient Tobacco Use Status: Former Tobacco user Current occupational status: retired 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 Review of Systems [facility] [place] back pain, Reports arthralgias and Reports stiffness Physical Exam Const General: cooperative, healthy appearing and comfortable Nutritional Appearance: overweight Orientation/consciousness: patient oriented x3 Limitations: no limitations HEENT Head: Yes normocephalic and Yes atraumatic Mouth: moist mucous membranes Resp Effort & Inspection: normal respiratory effort and able to speak in complete sentences Auscultation: clear to auscultation bilaterally Neuro General: patient oriented x3 Extrem Other: Mild erythema of his right hand MCPs without swelling or tenderness, synovial th ickening of 2nd and 3rd MCP, reddish nontender nodule on the dorsal aspect of right 5th MCP Left 2nd 3rd and 4th MCP synovial thickening but no active synovitis Normal range of motion of both elbows without pain Dupuytren's contracture of his left hand Normal range of motion of both shoulders Bilateral knee crepitus Painful range of motion of his right hip No ankle swelling or tenderness bilaterally Negative MTP squeeze test bilaterally Assessment & Plan Assessment & Plan (1) Seropositive rheumatoid arthritis: Comment: ++RF+++CCP dx 01/22 left olecranon synovial fluid inflammatory MTX 08/2022 effective Code(s): M05.9 - Rheumatoid arthritis with rheumatoid factor, unspecified Plan: This is a 68-year-old male with seropositive RA who presents for follow-up. Doing well on methotrexate 20 mg weekly, folic acid 1 mg daily and prednisone 5 mg daily Continue with methotrexate 20 mg weekly but split dose into 4 tabs twice Reduce prednisone to 2.5 mg daily Continue with folic acid 1 mg daily Start dextromethorphan 30 mg the day of methotrexate and the following day for possible MTX flu Labs before next visit in 3 months (2) Positive TB test: Code(s): R76.11 - Nonspecific reaction to tuberculin skin test without active tuberculosis Plan: T spot was positive once, negative on repeat. (3) snf methotrexate user: Code(s): Z79.631 - snf (current) use of antimetabolite agent Plan: Monitor safety labs. Plan I spent 26 minutes reviewing patient's chart, evaluating patient, ordering diagnostic workup, counseling patient & his and documenting in the chart Orders: Orders Comprehensive Met. Panel 3 Months M05.9 - Rheumatoid arthritis with rheumatoid factor, unspecified, Z79.631 - snf (current) use of antimetabolite agent C Reactive Protein 3 Months M05.9 - Rheumatoid arthritis with rheumatoid factor, unspecified, Z79.631 - snf (current) use of antimetabolite agent Complete Blood Count Auto Diff 3 Months M05.9 - Rheumatoid arthritis with rheumatoid factor, unspecified, Z79.631 - snf (current) use of antimetabolite agent Erythrocyte Sedimentation Rate 3 Months M05.9 - Rheumatoid arthritis with rheumatoid factor, unspecified, Z79.631 - medical terminologist (current) use of antimetabolite agent Medications: New dextromethorphan-guaifenesin 30-600 mg 1 tab the day you take Methotrexate & another tab the day after 8 tabs 2RF Coding Level of Care Code Est Pt Level 4 (95719) Diagnoses Seropositive rheumatoid arthritis M05.9 Positive TB test R76.11 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
[2023-10-25 13:34] VITALS: BP 110/84; PULSE 77; TEMP 36.2; O2SAT 96; BMI 26.8
== END 2023-10-25 13:49 | disposition home or self-care (01) ==
PROVIDERS: PCP Nurse Practitioner Gerontology; Visit Provider Student in an Organized Health Care Education/Training Program
DX: M05.79 Rheumatoid arthritis with rheumatoid factor of multiple sites without organ or systems involvement (principal); R76.11 Nonspecific reaction to tuberculin skin test without active tuberculosis; Z79.631 Long term (current) use of antimetabolite agent
CPT/HCPCS: 99214

== ENCOUNTER → 2023-10-25 13:22 | Outpatient (BNVA) | payer OTHER, SELFPAY | PROVIDERS: PCP Nurse Practitioner Gerontology; Visit Provider Student in an Organized Health Care Education/Training Program | DX: M05.9 Rheumatoid arthritis with rheumatoid factor, unspecified (principal); R76.11 Nonspecific reaction to tuberculin skin test without active tuberculosis; Z79.631 Long term (current) use of antimetabolite agent | CPT/HCPCS: 99212 ==

== ENCOUNTER 2024-01-25 10:23 | Outpatient (AMB) | payer OTHER, SELFPAY ==
--- NOTE | 2024-01-25 10:25 | A.OFFVIS_ITS ---
Vital Signs 01/25/24 10:26 Height 5 ft 10 in Weight 182 lb 15.739 oz BMI 26.3 BP 138/68 Blood Pressure Location Rt brachial Position Sitting Pulse 55 Pulse Source Pulse Oximeter Pulse Oximetry (%) 95 Oxygen Delivery Method Room Air Intake Visit Reasons: RA/cm Allergies bee pollen Allergy (Mild, Verified 01/25/24 10:28) Unknown codeine Allergy (Mild, Verified 01/25/24 10:28) Unknown honey Allergy (Mild, Verified 01/25/24 10:28) Unknown Medication List - Last Reconciled 01/25/24 by Vanessa Encarnacion MD albuterol sulfate 90 mcg/actuation (Ventolin HFA) 0 mcg inhalation albuterol sulfate 90 mcg/actuation (Ventolin HFA) 1 inh inhalation QID aspirin 81 mg PO DAILY atorvastatin 80 mg PO DAILY bupropion HCl XL 450 mg PO DAILY calcium carbonate 600 mg PO BID celecoxib mg PO dicyclomine 10 mg PO QID PRN epinephrine IM ONCE PRN fluticasone propionate 50 mcg/actuation 2 sprays intranasal DAILY ytvlzilosco-pjxhuwera-ywchjscu 100-62.5-25 mcg (Trelegy Ellipta) 1 ea inhalation DAILY folic acid 1 mg PO DAILY gabapentin 100 mg PO TID hydrocodone-acetaminophen 10-325 mg 1 tab PO BID PRN lactulose 15 mL PO DAILY PRN levothyroxine 125 mcg PO DAILY magnesium oxide 400 mg PO DAILY methotrexate sodium 20 mg (8 x 2.5 mg) PO QWEEK potassium chloride ER (Klor-Con M) 20 mEq PO TID prednisone 2.5 mg PO DAILY HPI Comments Details: 68-year-old male with seropositive RA returns for follow-up. He is on methotrexate 20 mg weekly split dose, folic acid 1 mg daily and prednisone 2.5 mg daily. Recently he has been having some aching and stiffness in his knuckles and index fingers. No significant swelling. His main issue remains his bilateral arthritis. He was told that he needs hip replacement. Patient is afraid of surgery. Initial history: This is a 67-year-old male was referred for evaluation of multiple joint pain and positive rheumatoid factor. Patient stated that he has had joint pain for years. He has had neck pain and low back pain for years. He also has right hip pain. Stated that he received intra-articular hip injection about a year ago which provided some moderate relief, he had another injection a few months after which was not helpful. He also received a couple of knee steroid injections, the 1st 1 was helpful and the 2nd 1 was not as helpful. Over the last 1-2 years he has started to have right hand pain and swelling across his MCPs. He also developed a red bump on his right 5th MCP. He also has swelling of his left elbow that is only tender when he leans on that elbow. Per the however he gets intermittent attacks of significant pain and swelling of the elbow. He never procedures for his low back pain by Pain Management. He is on hydrocodone. He is unaware of any family history of autoimmune rheumatic disease. Denies any confirmed history of kidney stones [facility] Medical History Ex-smoker Productive cough Moderate pain Polyarthropathy Osteoarthritis Irritable bowel syndrome Peripheral vascular disease Carotid artery stenosis Bradycardia Coronary arteriosclerosis Myocardial infarction Neuropathy Central sleep apnea syndrome Major depressive disorder Anemia Hyperlipidemia Hypothyroidism Surgical History Hx of hand surgery Stented coronary artery H/O eye surgery H/O colonoscopy Family History Brother Malignant tumor of colon Father Carcinoma of prostate Maternal Grandmother Cancer of unknown origin Social History Alcohol intake: never Patient Tobacco Use Status: Former Tobacco user Current occupational status: retired 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 Review of Systems [facility] [place] Reports back pain, Reports arthralgias and Reports stiffness Physical Exam Vital Signs: Last Vital Signs Pulse 55 01/25/24 10:26 BP 138/68 01/25/24 10:26 Pulse Ox 95 01/25/24 10:26 Oxygen Delivery Method Room Air 01/25/24 10:26 BMI result Body Mass Index 26.3 Const General: cooperative, healthy appearing and comfortable Nutritional Appearance: overweight Orientation/consciousness: patient oriented x3 Limitations: no limitations HEENT Head: Yes normocephalic and Yes atraumatic Mouth: moist mucous membranes Resp Effort & Inspection: normal respiratory effort and able to speak in complete sentences Auscultation: clear to auscultation bilaterally Neuro General: patient oriented x3 Extrem Other: Mild erythema of his right hand MCPs without swelling or tenderness, synovial thickening of 2nd and 3rd MCP, reddish nontender nodule on the dorsal aspect of right 5th MCP 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 Left 2nd 3rd and 4th MCP synovial thickening but no active synovitis Normal range of motion of both elbows without pain Dupuytren's contracture of his left hand Normal range of motion of both shoulders Bilateral knee crepitus Painful range of motion of his right hip No ankle swelling or tenderness bilaterally Negative MTP squeeze test bilaterally Assessment & Plan Assessment & Plan (1) Seropositive rheumatoid arthritis: Comment: ++RF+++CCP dx 01/22 left olecranon synovial fluid inflammatory MTX 08/2022 effective Code(s): M05.9 - Rheumatoid arthritis with rheumatoid factor, unspecified Category: Medical Plan: This is a 68-year-old male with seropositive RA who presents for follow-up. On methotrexate 20 mg weekly split dose, folic acid 1 mg daily and prednisone 5 mg daily. Continues to have a few achy joints. Overall much improved since methotrexate was started Increase methotrexate to 25 mg weekly split dose, continue folic acid 1 mg daily Continue prednisone 2.5 mg daily for 1 more month then stop MTX flu symptoms improved with splitting methotrexate. 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 (3) Bilateral primary osteoarthritis of hip: Code(s): M16.0 - Bilateral primary osteoarthritis of hip Category: Medical Plan I spent 26 minutes reviewing patient's chart, evaluating patient, ordering diagnostic workup, counseling patient & his and documenting in the chart Orders: Orders C Reactive Protein 3 Months M05.9 - Rheumatoid arthritis with rheumatoid factor, unspecified, Z79.631 - correction (current) use of antimetabolite agent Complete Blood Count Auto Diff 3 Months M05.9 - Rheumatoid arthritis with rheumatoid factor, unspecified, Z79.631 - salvage determiner (current) use of antimetabolite agent Comprehensive Met. Panel 3 Months M05.9 - Rheumatoid arthritis with rheumatoid factor, unspecified, Z79.631 - correction (current) use of antimetabolite agent Erythrocyte Sedimentation Rate 3 Months M05.9 - Rheumatoid arthritis with rheumatoid factor, unspecified, Z79.631 - correction (current) use of antimetabolite agent Medications: New celecoxib 200 mg PO BID Changed From methotrexate sodium 20 mg (8 x 2.5 mg) PO QWEEK 96 tabs 0RF To methotrexate sodium 25 mg (10 x 2.5 mg) PO QWEEK 120 tabs 0RF Refilled folic acid 1 mg PO DAILY 90 tabs 1RF Coding Level of Care Code Est Pt Level 4 (20428) Diagnoses Seropositive rheumatoid arthritis M05.9 correction methotrexate user Z79.631 Bilateral primary osteoarthritis of hip M16.0
[2024-01-25 10:26] VITALS: BP 138/68; PULSE 55; O2SAT 95; BMI 26.3
== END 2024-01-25 10:51 | disposition home or self-care (01) ==
PROVIDERS: PCP Nurse Practitioner Gerontology; Visit Provider Student in an Organized Health Care Education/Training Program
DX: M05.79 Rheumatoid arthritis with rheumatoid factor of multiple sites without organ or systems involvement (principal); Z79.631 Long term (current) use of antimetabolite agent; M16.0 Bilateral primary osteoarthritis of hip
CPT/HCPCS: 99214

== ENCOUNTER → 2024-01-25 10:23 | Outpatient (BNVA) | payer OTHER, SELFPAY | PROVIDERS: PCP Nurse Practitioner Gerontology; Visit Provider Student in an Organized Health Care Education/Training Program | DX: M05.9 Rheumatoid arthritis with rheumatoid factor, unspecified (principal); M16.0 Bilateral primary osteoarthritis of hip; Z79.631 Long term (current) use of antimetabolite agent | CPT/HCPCS: 99212 ==

== ENCOUNTER 2024-04-26 14:24 | Outpatient (AMB) | payer OTHER, SELFPAY ==
[2024-04-26 14:34] VITALS: BMI 25.0
--- NOTE | 2024-04-26 14:34 | MHC.OFFVIS ---
Vital Signs 04/26/24 14:34 Height 5 ft 10 in Weight 174 lb BMI 25.0 Intake Visit Reasons: RA Intake Note: Patient presents today for follow up on RA, last seen on 01/25/24. Patient states he got his labs done earlier this year. Accompanied by: Spouse Allergies bee pollen Allergy (Mild, Verified 01/25/24 10:28) Unknown codeine Allergy (Mild, Verified 01/25/24 10:28) Unknown honey Allergy (Mild, Verified 01/25/24 10:28) Unknown Medication List - Last Reconciled 04/26/24 by Vanessa Encarnacion MD albuterol sulfate 90 mcg/actuation (Ventolin HFA) 0 mcg inhalation albuterol sulfate 90 mcg/actuation (Ventolin HFA) 1 inh inhalation QID aspirin 81 mg PO DAILY atorvastatin 80 mg PO DAILY bupropion HCl XL 450 mg PO DAILY calcium carbonate 600 mg PO BID celecoxib 200 mg PO BID dicyclomine 10 mg PO QID PRN epinephrine IM ONCE PRN fluticasone propionate 50 mcg/actuation 2 sprays intranasal DAILY mkxapshtulq-lfpguofrs-iwetxkuw 100-62.5-25 mcg (Trelegy Ellipta) 1 ea inhalation DAILY folic acid 1 mg PO DAILY gabapentin 100 mg PO TID hydrocodone-acetaminophen 10-325 mg 1 tab PO BID PRN lactulose 15 mL PO DAILY PRN levothyroxine 125 mcg PO DAILY magnesium oxide 400 mg PO DAILY methotrexate sodium 25 mg (10 x 2.5 mg) PO QWEEK potassium chloride ER (Klor-Con M) 20 mEq PO TID HPI Comments Details: 69-year-old male with seropositive RA returns for follow-up. He is on methotrexate 25 mg p.o. once weekly split dose plus folic acid 1 mg daily. Very well tolerated Patient has not been doing well lately. Last month he lenin COVID infection from his daughter and her boyfriend. He ended up at the hospital and he states that it was complicated by a bacterial pneumonia and he needed to be on cephalexin, azithromycin and steroids. He states that he continues to have some fatigue. He has been having worsening lower back pain that radiates down his right lower extremity. He does not recall getting evaluated by pain management in the past. Initial history: This is a 67-year-old male was referred for evaluation of multiple joint pain and positive rheumatoid factor. Patient stated that he has had joint pain for years. He has had neck pain and low back pain for years. He also has right hip pain. Stated that he received intra-articular hip injection about a year ago which provided some moderate relief, he had another injection a few months after which was not helpful. He also received a couple of knee steroid injections, the 1st 1 was helpful and the 2nd 1 was not as helpful. Over the last 1-2 years he has started to have right hand pain and swelling across his MCPs. He also developed a red bump on his right 5th MCP. He also has swelling of his left elbow that is only tender when he leans on that elbow. Per the however he gets intermittent attacks of significant pain and swelling of the elbow. He never procedures for his low back pain by Pain Management. He is on hydrocodone. He is unaware of any family history of autoimmune rheumatic disease. Denies any confirmed history of kidney stones [facility] Medical History Ex-smoker Productive cough Moderate pain Polyarthropathy Osteoarthritis Irritable bowel syndrome Peripheral vascular disease Carotid artery stenosis Bradycardia Coronary arteriosclerosis Myocardial infarction Neuropathy Central sleep apnea syndrome Major depressive disorder Anemia Hyperlipidemia Hypothyroidism Surgical History Hx of hand surgery Stented coronary artery H/O eye surgery H/O colonoscopy Family History Brother Malignant tumor of colon Father Carcinoma of prostate Maternal Grandmother Cancer of unknown origin Social History Alcohol intake: never Patient Tobacco Use Status: Former Tobacco user Current occupational status: retired 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 Review of Systems Const Reports fatigue and Reports weakness Musc Reports back pain, Reports arthralgias, Reports radiating pain into limb and Reports stiffness Neuro Reports weakness Endo Reports fatigue Physical Exam Vital Signs: BMI result Body Mass Index 25.0 Const Other: Looks somewhat tired General: cooperative and comfortable Nutritional Appearance: overweight Orientation/consciousness: patient oriented x3 Limitations: no limitations HEENT Head: Yes normocephalic and Yes atraumatic Mouth: moist mucous membranes Resp Effort & Inspection: normal respiratory effort and able to speak in complete sentences Auscultation: rhonchi Neuro General: patient oriented x3 Extrem Other: Mild erythema of his right hand MCPs without swelling or tenderness, synovial thickening of 2nd and 3rd MCP, reddish nontender nodule on the dorsal aspect of right 5th MCP 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 Left 2nd 3rd and 4th MCP synovial thickening but no active synovitis Normal range of motion of both elbows without pain Dupuytren's contracture of his left hand Normal range of motion of both shoulders Bilateral knee crepitus Painful range of motion of his right hip Positive straight leg raise test on the right No ankle swelling or tenderness bilaterally Negative MTP squeeze test bilaterally Assessment & Plan Assessment & Plan (1) Seropositive rheumatoid arthritis: Comment: ++RF+++CCP dx 01/22 left olecranon synovial fluid inflammatory MTX 08/2022 effective Code(s): M05.9 - Rheumatoid arthritis with rheumatoid factor, unspecified Category: Medical Plan: This is a 69-year-old male with seropositive RA who presents for follow-up. On methotrexate 25 mg weekly split dose, folic acid 1 mg daily. Prednisone has been tapered off Doing very well overall with no active synovitis Continue methotrexate 25 mg weekly split dose, continue folic acid 1 mg daily Skip 1 dose of methotrexate, may help speed up COVID infection recovering Labs before next visit in 4 months (2) nursing home methotrexate user: Code(s): Z79.631 - exterminator helper (current) use of antimetabolite agent Category: Medical Plan: Monitor safety labs. (3) Bilateral primary osteoarthritis of hip: Code(s): M16.0 - Bilateral primary osteoarthritis of hip Category: Medical (4) Lumbar radiculopathy: Code(s): M54.16 - Radiculopathy, lumbar region Category: Medical Plan: I think patient needs to be evaluated by pain management at this time. Patient's sees pain management in [place]. Advised patient to request pain management referral from PCP (5) Immunization counseling: Code(s): Z71.85 - Encounter for immunization safety counseling Category: Medical Plan: Patient received 3 COVID vaccines, last of which was in 2021. He did not received a flu vaccine for this season, he did not receive RSV vaccine, Shingrix vaccine or pneumococcal vaccine Advised patient to get COVID booster and flu vaccine this season, I would wait one-month from now. Can get both vaccines in the same day. Skip methotrexate 2 doses after vaccination Advised patient to get Shingrix vaccines, RSV vaccine as well as pneumococcal vaccination. Patient can get vaccination in any order. Skip methotrexate for 2 doses since after each vaccination encounter Plan I spent 46 minutes reviewing patient's chart, evaluating patient, ordering diagnostic workup, counseling patient & his and documenting in the chart Orders: Orders Complete Blood Count Auto Diff 4 Months M05.9 - Rheumatoid arthritis with rheumatoid factor, unspecified, Z79.631 - nursing home (current) use of antimetabolite agent C Reactive Protein 4 Months M05.9 - Rheumatoid arthritis with rheumatoid factor, unspecified, Z79.631 - nursing home (current) use of antimetabolite agent Comprehensive Met. 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
== END 2024-04-26 15:15 | disposition home or self-care (01) ==
PROVIDERS: PCP Nurse Practitioner Gerontology; Visit Provider Student in an Organized Health Care Education/Training Program
DX: M05.722 Rheumatoid arthritis with rheumatoid factor of left elbow without organ or systems involvement (principal); Z79.631 Long term (current) use of antimetabolite agent; M16.0 Bilateral primary osteoarthritis of hip; M54.16 Radiculopathy, lumbar region; Z71.85 Encounter for immunization safety counseling
CPT/HCPCS: 99215; G2211

== ENCOUNTER → 2024-04-26 14:24 | Outpatient (BNVA) | payer OTHER, SELFPAY | PROVIDERS: PCP Nurse Practitioner Gerontology; Visit Provider Student in an Organized Health Care Education/Training Program | DX: M05.9 Rheumatoid arthritis with rheumatoid factor, unspecified (principal); M16.0 Bilateral primary osteoarthritis of hip; M54.16 Radiculopathy, lumbar region; R74.01 Elevation of levels of liver transaminase levels; Z79.631 Long term (current) use of antimetabolite agent; Z71.85 Encounter for immunization safety counseling | CPT/HCPCS: 99212 ==

== ENCOUNTER 2024-09-06 09:51 | Outpatient (REF) | payer OTHER, SELFPAY ==
[2024-09-06 18:27] LABS: MANUAL DIFF FLAG NO
[2024-09-06 18:38] LABS: Basophils Percent Auto 0.5 % (0-2); Eosinophils Absolute Auto 0.3 X10*3/uL (0.0-0.4); Eosinophils Percent Auto 3.2 % (0-4); Hematocrit 38.4 % (42.0-52.0); Hemoglobin 12.3 g/dl (14.0-18.0); Imm Gran Abs Auto 0.06 X10*3/uL (0.00-0.03); Imm Gran Pct Auto 0.8 % (0.0-0.4); Lymphocytes Absolute Auto 0.6 X10*3/uL (1.2-4.9); Lymphocytes Percent Auto 7.1 % (20-40); Mean Corpuscular Hemoglobin 30.8 pg (27.0-33.0); Mean Corpuscular Volume 96.2 fL (80.0-98.0); Mean Platelet Volume 11.8 fL (9.4-12.4); Monocytes Absolute Auto 0.8 X10*3/uL (0.1-1.2); Monocytes Percent Auto 9.6 % (2-11); Neutrophils Absolute Auto 6.2 x10*3/uL (2.0-8.3); Neutrophils Percent Auto 78.8 % (45-73); Platelet Count 179 X10*3/uL (160-400); Red Blood Count 3.99 X10*6/uL (4.60-5.80); Red Cell Distribution Width 13.8 % (11.0-16.0); White Blood Count 7.9 X10*3/uL (4.8-10.8)
[2024-09-06 18:55] LABS: Alanine Aminotransferase 31 U/L (0-40); Aspartate Amino Transferase 23 U/L (5-37); C Reactive Protein 0.12 mg/dL (< or = 0.50); Estimated Glomerular Filt Rate > 60
[2024-09-06 20:10] LABS: Erythrocyte Sedimentation Rate 13 MM/HR (0-15)
[2024-09-10 23:29] LABS: Glucose-6-Phosphate Dehydrogen 16.4 U/g Hgb (7.0-20.5)
== END 2024-09-06 09:52 | disposition home or self-care (01) ==
LOC: HO.HKASLDS 09:51
PROVIDERS: PCP Nurse Practitioner Gerontology; Visit Provider Internal Medicine Rheumatology
DX: M05.9 Rheumatoid arthritis with rheumatoid factor, unspecified (principal); Z79.631 Long term (current) use of antimetabolite agent; Z79.60 Long term (current) use of unspecified immunomodulators and immunosuppressants
CPT/HCPCS: 36415; 82565; 82955; 84450; 84460; 85025; 85652; 86140; 99212

== ENCOUNTER 2024-12-06 12:24 | Outpatient (AMB) | payer OTHER, SELFPAY ==
[2024-12-06 12:37] VITALS: BP 120/62; PULSE 73; O2SAT 94; BMI 26.0
--- NOTE | 2024-12-06 12:37 | MHC.OFFVIS ---
Vital Signs 12/06/24 12:37 Height 5 ft 10 in Weight 180 lb 15.992 oz BMI 26.0 BP 120/62 Blood Pressure Location Rt brachial Position Sitting Pulse 73 Pulse Source Pulse Oximeter Pulse Oximetry (%) 94 Oxygen Delivery Method Room Air Intake Visit Reasons: 3 Months Intake Note: Patient presents today for a RA follow up Accompanied by: Spouse Allergies bee pollen Allergy (Mild, Verified 09/06/24 09:57) Unknown codeine Allergy (Mild, Verified 09/06/24 09:57) Unknown honey Allergy (Mild, Verified 09/06/24 09:57) Unknown HPI HPI 3 Months: Details: He is experiencing worsening productive cough. He has new nodules on his thumb and left forearm. No recent infection. No fevers. He did not start hydroxychloroquine due to fear of side effects. He is afraid of the cardiac side effects 2 days' history of arrhythmia and stent. He also read as a side effect a number of time when he looked online. [facility] Medical History (Updated 12/06/24 @ 13:09 by Jeremias Ramirez MD) Torn Achilles tendon Ex-smoker Productive cough Moderate pain Polyarthropathy Osteoarthritis Irritable bowel syndrome Peripheral vascular disease Carotid artery stenosis Bradycardia Coronary arteriosclerosis Myocardial infarction Neuropathy Central sleep apnea syndrome Major depressive disorder Anemia Hyperlipidemia Hypothyroidism Surgical History Hx of hand surgery Stented coronary artery H/O eye surgery H/O colonoscopy Family History Brother Malignant tumor of colon Father Carcinoma of prostate Maternal Grandmother Cancer of unknown origin Social History Alcohol intake: never Patient Tobacco Use Status: Former Tobacco user Current occupational status: retired 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 Good respiratory effort Skin: No lesions seen MSK: Tender right 3rd MCP, rheumatoid nodule present on right 5th MCP and palmar aspect of bilateral IPs (new on right side), chronic synovial thickening present left 2nd and 3rd MCP. He has new nodule near left extensor surface of elbow. 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 Full range of motion of upper extremity. Limited external rotation of bilateral hips right worse than left. Good knee flexion. Assessment & Plan Assessment & Plan (1) Seropositive rheumatoid arthritis: Comment: Seropositive (rheumatoid factor and anti CCP antibody), dx 01/22 left olecranon synovial fluid inflammatory, rheumatoid nodules. MTX 08/2022-. He has benefited with being on methotrexate but he continues to have active inflammatory arthritis with new development of rheumatoid nodules, which are progressing compared to last visit. We discussed next steps in DMARD therapy. He prefers to be on conventional DMARDs. He does not want to try hydroxychloroquine. We discussed side effects, benefits and drug monitoring on leflunomide. Code(s): M05.9 - Rheumatoid arthritis with rheumatoid factor, unspecified Category: Medical Plan: Labs ordered to assess disease and drug monitoring on high-risk medication Continue methotrexate 25 mg once weekly split dose Continue folic acid 1 mg daily After lab results are back, I will send prescription for leflunomide 10 mg daily. He will then need labs requisition sent to [facility] [place] for labs to do 1 month after starting leflunomide: CBC, creatinine, AST, ALT Return to clinic in 3 months (2) skilled nursing methotrexate user: Code(s): Z79.631 - skilled nursing (current) use of antimetabolite agent Category: Medical Plan: See above Orders: Orders Alanine Aminotransferase Today Z79.60 - skilled nursing (current) use of unspecified immunomodulators and immunosuppressants Erythrocyte Sedimentation Rate Today Z79.899 - Other intermediate (current) drug therapy Complete Blood Count Auto Diff Today Z79.60 - skilled nursing (current) use of unspecified immunomodulators and immunosuppressants Aspartate Amino Transferase Today Z79.60 - 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
--- OUTSIDE RECORDS SUMMARY | 2024-12-06 13:36 | XMS_ITS | Continuity of Care Document ---
Author Organization [facility] Address [address] [place] [id number]- Support Name Relationship Address Phone ZANE CALLEJAS Personal Relationship Unknown Unavailable BRITTA, ZANE Hayes Personal Relationship Unknown Unavailable JJ CORBIN unrelated friend Unknown Unavailable BRITTA, ZANE Hayes Personal Relationship Unknown Unavailable BRITTA, ZANE Hayes Personal Relationship Unknown Unavailable BRITTA, ZANE Hayes Personal Relationship Unknown Unavailable BRITTA, ZANE Hayes Personal Relationship Unknown Unavailable BRITTA, ZANE Hayes Personal Relationship Unknown Unavailable BRITTA, ZANE Hayes Personal Relationship Unknown Unavailable BRITTA, ZANE Hayes Personal Relationship Unknown Unavailable BRITTA, ZANE Hayes Personal Relationship Unknown Unavailable BRITTA, ZANE Hayes Personal Relationship Unknown Unavailable BRITTA, ZANE Hayes Personal Relationship Unknown Unavailable BRITTA, ZANE Hayes Personal Relationship Unknown Unavailable BRITTA, ZANE Hayes Personal Relationship Unknown Unavailable BRITTA, ZANE Hayes Personal Relationship Unknown Unavailable MAN ARAUJO unrelated friend Unknown Unavailabl e BRITTA, RADHA spouse Unknown Unavailable BRITTA, ZANE Hayes Personal Relationship Unknown Unavailable BRITTA, ZANE Hayes Personal Relationship Unknown Unavailable BRITTA, ZANE Hayes Personal Relationship Unknown Unavailable BRITTA, ZANE Hayes Personal Relationship Unknown Unavailable BRITTA, RADHA BARRIENTOSU spouse Unknown Unavaila ble BRITTA, OLENA sibling Unknown Unavailable SYLVESTER, CINDYLOU Other Unknown Unavailable BRITTA, ZANE Hayes Personal Relationship Unknown Unavailable BRITTA, ZANE Hayes Personal Relationship Unknown Unavailable BRITTA, ZANE Hayes Personal Relationship Unknown Unavailable BRITTA, ZANE Hayes Personal Relationship Unknown Unavailable Care Team Providers 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 Role Phone Reese MAURO, Chantel Zarate Primary Care Physician Encounter 12/01/24 - 12/02/[address] [address]- Attending Physician: Not on Staff, Attending MD Referring Physician: Not on Staff, Referring MD Encounter Type: [facility] Allergies, Adverse Reactions, Alerts Substance Criticality Severity Reaction Reaction Severity Status codeine Active Bee Stings Active Other Food Allergy honey A ctive Latex Unable to assess criticality Persistent Mild Adhesive Active Immunizations Given and Recorded Vaccine Date Status Refusal Reason tetanus/diphtheria/pertussis, acel(Tdap) 08/27/17 Given tetanus/diphtheria/pertussis, acel(Tdap) 09/30/12 Given tetanus/diphtheria/pertussis, acel(Tdap) 06/06/11 Given Medications albuterol CFC free 90 mcg/inh inhalation aerosol 2, puffs, Inhalation, Every 6 hours, PRN, # 8.5 Gm, Refills 0, Tot. Refills 0, Maintenance, :32:00 PM EDT, Inhaler, Route to Pharmacy Electronically, [id number], [id number], 178, cm, 03/28/24 11:33:00 EDT, Height, 76.2, kg, 03/27/24 13:56:00 EDT, Dry Weight Start Date: 03/28/24 Status: Ordered Quantity: 8.5 Unit: g Repeat number: 1 aspirin 81 mg oral enteric coated tablet 1 tablet = 81 mg, By Mouth, Daily, # 30 tablet, 0 Refills, Maintenance, 02/12/14 2:07:30 PM EDT, EC Tablet Start Date: 02/12/14 Status: Ordered Quantity: 30.0 Unit: tablet Repeat number: 1 atorvastatin 80 mg oral tablet 1 tablet = 80 mg, By Mouth, Daily, take 1 tablet by mouth once daily Start Date: 03/27/24 Status: Ordered Repeat number: 1 buPROPion 150 mg/24 hours (XL) oral tablet, extended release 3 tablet = 450 mg, By Mouth, Daily, take 3 tablets by mouth once daily Start Date: 03/27/24 Status: Ordered Repeat number: 1 calcium (as carbonate and lactate)-vitamin D 200 mg-250 intl units oral tablet, chewable 1 tablet, 2 times a day, 0 Refills, Maintenance, 12/11/20 2:11:00 PM EDT, Partial fill upon patient request if the prescription is for a schedule II opioid drug. Start Date: 12/11/20 Status: Ordered Repeat number: 1 celecoxib 100 mg oral capsule 1 capsule = 100 mg, By Mouth, 2 times a day, take 1 capsule by mouth twice a day Start Date: 02/17/23 Status: Ordered Repeat number: 1 dicyclomine 10 mg oral capsule 2 capsule = 20 mg, By Mouth, 2 times a day, 0 Refills, Maintenance, 09/30/18 9:06:25 AM EST, Capsule Start Date: 09/30/18 Status: Ordered Repeat number: 1 FeroSul 325 mg oral tablet 0 Refills, Maintenance, 10/26/24 3:00:00 PM EDT, Partial fill upon patient request if the prescription is for a schedule II opioid drug. Start Date: 10/26/24 Status: Ordered Repeat number: 1 fluticasone 27.5 mcg/inh nasal spray Daily, 0 Refills, Maintenance, 12/11/20 2:12:00 PM EDT, Partial fill upon patient request if the prescription is for a schedule II opioid drug. Start Date: 12/11/20 Status: Ordered Repeat number: 1 folic acid 1 mg oral tablet Refills 0, Maintenance, 10/26/24 3:01:00 PM EDT, Partial fill upon patient request if the prescription is for a schedule II opioid drug. Start Date: 10/26/24 Status: Ordered Repeat number: 1 gabapentin 100 mg oral capsule 100 mg, 1, capsule, By Mouth, 3 times a day, PRN, take 1 capsule by mouth three times a day if needed, Pain , Moderate Start Date: 03/27/24 Status: Ordered Repeat number: 1 LaMICtal 25 mg oral tablet 25 mg, By Mouth, Daily at bedtime, # 30 tablet, Refills 0, Tot. Refills 0, Maintenance, 09/30/18 9:07:10 AM EST, Route to Pharmacy Electronically, [facility]/pharmacy #[id number] Start Date: 09/30/18 Status: Ordered Quantity: 30.0 Unit: tablet Repeat number: 1 levothyroxine 125 mcg (0.125 mg) oral tablet 1 tablet = 125 mcg, By Mouth, Daily, TAKE 1 TABLET BY MOUTH EVERY DAY Start Date: 03/27/24 Status: Ordered Repeat number: 1 magnesium oxide 400 mg oral tablet 1 tablet = 400 mg, By Mouth, Daily, # 10 tablet, 0 Refills, Maintenance, 03/27/24 1:33:00 PM EDT, Tablet, Partial fill upon patient request if the prescription is for a schedule II opioid drug. Start Date: 03/27/24 Stop Date: 04/06/24 Status: Ordered Quantity: 10.0 Unit: tablet Repeat number: 1 methotrexate 2.5 mg oral tablet 10 tablet = 25 mg, By Mouth, Every 7 days, take 10 tablets by mouth every week Start Date: 03/27/24 Status: Ordered Repeat number: 1 oxyCODONE 10 mg oral tablet 0 Refills, Maintenance, 10/26/24 3:01:00 PM EDT, Partial fill upon patient request if the prescription is for a schedule II opioid drug. Start Date: 10/26/24 Status: Ordered Repeat number: 1 Potassium Chloride (Vyq-Epgh-Emo M20) 20 mEq oral tablet, extended release take 1 tablet by mouth three times a day with meals Start Date: 02/17/23 Status: Ordered Repeat number: 1 Trelegy Ellipta 100 mcg-62.5 mcg-25 mcg/inh inhalation powder 1 puffs, Inhalation, Daily, at the same time every day, # 60 each, 0 Refills, Maintenance, 03/28/24 1:36:00 PM EDT, Powder, Partial fill upon patient request if the prescription is for a schedule II opioid drug. Start Date: 03/28/24 Status: Ordered Quantity: 60.0 Unit: each Repeat number: 1 Problem List Condition Confirmation Course Effective Dates Status H ealth Status Informant Arthritis Confirmed Active Carotid artery stenosis Confirmed Active CAD (coronary artery disease) Confirmed Active COVID-19 1 Confirmed 03/28/24 Active Depression Confirmed Active Hyperlipidemia Confirmed Active Hypothyroidism Confirmed Active IBS - Irritable bowel syndrome Confirmed Active Myocardial infarct Confirmed Active NICOLE - Obstructive sleep apnea Confirmed Active Hip osteoarthritis Confirmed Active Knee osteoarthritis Confirmed Active PVD - peripheral vascular disease Confirmed Active Rectal bleeding Confirmed Active Rheumatoid arteritis Confirmed Active 1Problem added by Discern Expert Results Radiology Reports * Exam Date Time Procedure Performing Provider Status 12/01/24 8:19 AM MRI Ext Lower W/O Contrast Left Auth (Verified) Notes: (MRI Ext Lower W/O Contrast Left) Reason For Exam: Achilles tendinitis, left leg;Achilles tendinitis, left leg RESULT: MRI Ext Lower W/O Contrast Left [facility] VISIT NUMBER :[id number] Patient Name: ZANE CARBALLO Date of : 1955 Date of Exam: 12-01-2024 Referring Physician: Chantel Leigh [address] [facility] [address] [place], [place] [address] Exam: MR Ankle (C-) CPT 43516 - Left Room Description: Jose Rosario Espr 1.5 Left ankle MRI Clinical History: Pain. Findings: The anterior and posterior tibiofibular and posterior talofibular ligaments are intact. Attenuated anterior talofibular ligament fibers may be due to prior sprain or sprains. The deltoid and calcaneofibular ligaments are intact . The posterior tibialis, flexor digitorum, and flexor hallucis longus tendons are intact . The peroneus longus tendon is intact. Split tear of the peroneus brevis tendon at the level of the retromalleolar groove and hindfoot. The anterior tibialis, extensor hallucis, and extensor digitorum tendons are intact . Achilles tendon is ruptured from its distal attachment. There is approximately 6 to 6.5 cm of retraction. The plantar fascia is intact . The sinus tarsi is within normal limits . IMPRESSION: Achilles tendon rupture. Peroneus brevis split tear. Attenuated anterior talofibular ligament fibers may be due to prior sprain or sprains Electronically Signed By: Victor Manuel Montilla MD Dictated By: Not on Staff , CLINTON MCKOY Dictated Date/Time: 12/01/24 1:09 pm Reviewed By: Not on Staff , CLINTON MCKOY Signed By: Not on Staff , CLINTON MCKOY Signed Date/Time: 12/01/24 1:09 pm Transcribed By: DESTINI Transcribed Date/Time: 12/01/24 1:09 pm Social History Social History Type Response Smoking Status Former smoker; Other : Quit X4 years ago up to that point he smoked 1PPD X45 years; entered on: 10/01/16 Sex Sex Representation Male (finding) Patient Care team information Care Team Personnel Name: Antoinette Whyte Position: [facility] Outreach Member Role: Lifetime Consulting Physician Name: Chantel Leigh NP Position: [facility] Physician - Hospital Medicine Member Role: PCP Address: [address] [place] [address] [address] [place] [address]- Telecom: Care Team Related Persons Name: MAN ARAUJO Name: RADHA CALLEJAS Name: OLENA CALLEJAS Insurance Providers Guarantor name: ZANE BRITTA Health Plan Information #: 1 Payer: [facility] Member Number: NA Policy Number: NA Group Number: NA
--- OUTSIDE RECORDS SUMMARY | 2024-12-06 13:36 | XMS_ITS | Data Portability ---
Author Organization [facility], [employer] Address [address] [place] [address] [place] [address] Care Team Providers Care Bulb Assembler Name Role Phone CHANTEL LEIGH Primary Care Provider Assessment Encounter Date Assessment Date Assessment LastModified by Organization Details LastModified Time 05/11/2024 05/11/2024 During this encounter, 2 of the 3 elements of MDM addressed: (1)Number and Complexity of problems: 1 or more chronic illness with exacerbation, progression, or side effects of treatment (2)Amount/Comple xity of data (need 1 out of 3 categories): (3)Moderate Risk of morbidity from additional diagnostic testing or treatment (one needed): Prescription Drug management. [email or web address] Not available 05/11/2024 13:44:54 08/03/2024 08/03/2024 During this encounter, 2 of the 3 elements of MDM addressed: (1)Number and Complexity of problems: 2 or more stable chronic illnesses (2)Amount/Comple xity of data (need 1 out of 3 categories): (3)Moderate Risk of morbidity from additional diagnostic testing or treatment (one needed): Prescription Drug management. [email or web address] Not available 08/04/2024 08:44:42 10/02/2024 10/02/2024 Stable and doing well with current medication. Counselled about risks in detail. This visit is being performed by Ale Sorto LPN under the direct supervision of Bassam Payne DO and they are physically present in the office and available for immediate consultation. The treatment plan was determined by the supervising provider. Not available 10/03/2024 11:09:33 10/10/2024 10/10/2024 The following time was spent on todays E/M encounter, including preparing for the visit, reviewing results, seeing the patient, and documentation on the date of service of the encounter: 44 46291 15-29 minutes 79072 30-44 minutes 09531 45-59 minutes 28430 60-74 minutes 24856 10-19 minutes 23280 20-29 minutes 74735 30-39 minutes 41344 40-54 minutes [email or web address] Not available 10/10/2024 20:08:20 11/15/2024 11/15/2024 During this encounter, 2 of the 3 elements of MDM addressed: (1)Number and Complexity of problems: 1 or more chronic illness with exacerbation, progression, or side effects of treatment (2)Amount/Comple xity of data (need 1 out of 3 categories): (3)Moderate Risk of morbidity from additional diagnostic testing or treatment (one needed): Prescription Drug management. [email or web address] Not available 11/15/2024 15:11:13 Plan of Treatment Reminders Order Date Submit Date Provider Last Modified By Organization Details Last Modified Time Details Appointments None recorded. Lab TSH + free T4, serum 2024 025 [employer] [facility], [address] [place], [address], 5 08:07:37 CBC w/ auto diff 2024 025 [employer] [facility], [address] [place], [address], 5 08:07:38 iron + total iron-bindin g capacity (TIBC), serum 2024 025 [employer] [facility], [address] [place], [address], 5 08:07:39 ferritin, serum or plasma 2024 025 [employer] [facility], [address] [facility], [place], [address], 5 08:07:40 cobalamin and folate panel, serum 2024 025 [employer] [facility], [address] [place], [address], 5 08:07:39 vitamin D, 25-hydroxy, total, serum 2024 025 DOYLE [facility], [address], [place], [address], 5 08:07:40 Referral sports medicine referral - Dr. Aldridge [address] [facility], [address] [facility], [address] [facility], [place], [address], 5 10:14:11 urologist referral [email or web address] [place] [address] Urology Scheduling, [address] [place], [address], 5 13:52:15 hand surgeon referral - Dr. Felipe if possible [address] General Surgery Scheduling Dept, [address], [address], 5 09:40:09 pain management referral [address] ([facility]), [address] [place], [address], 4 09:51:17 Procedures None recorded. Surgeries None recorded. Imaging MRI, ankle, w/o contrast 2024 025 [email or web address] 4 [facility] ([facility]), [address] [place], [address], 5 15:34:02 Medication Orders prednisone 20 mg tablet 2024 025 DOYLE [id number], [address], [place], [id number], 5 15:11:17 celecoxib 200 mg capsule 2024 025 [email or web address] [id number], [address], [place], [id number], 5 11:09:04 oxycodone 10 mg tablet 2024 025 DOYLE [id number], [address], [place], [id number], 16:07:47 Patient TargetsNo targets recorded. 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 Felipe if possible Referring Physician: Chantel Leigh Internal Medicine, Encounter Date: 08/03/2024 Urologist Referral for Pain in testicle Referring Physician: Chantel Leigh Internal Medicine, Encounter Date: 11/15/2024 Dr. Aldridge Referring Physician: Chantel Leigh Internal Medicine, Encounter Date: 11/15/2024 Results Created Date Observation Date Name Description Value Unit Range Abnormal Flag Note LastModifiedBy Organization Detail LastModifiedTime 10/12/1910/12/2024 TSH+F REE T4 TSH 3.030 uIU/m L 0.450- 4.500 normal Not Available [facility] ([facility]) [address] [place], [address], 10/12/2024 08:07:37 10/12/1910/12/2024 TSH+F REE T4 T4,free(dire ct) 1.33 NG/dL 0.82-1 .77 normal Not Available [facility] ([facility]) [address] [place], [address], 10/12/2024 08:07:37 10/12/1910/12/2024 CBC WITH DIFFE RENTI AL/PL ATELE T WBC 7.2 x10e3 /uL 3.4-10 .8 normal Not Available [facility] ([facility]) [address] [facility], [place], [address], 10/12/2024 08:07:38 10/12/19 25 10/12/2024 CBC WITH DIFFE RENTI AL/PL ATELE T RBC 3.94 x10e6 /uL 4.14-5 .80 below low normal Not Available [facility] ([facility]) [address] [place], [address], 10/12/2024 08:07:38 10/12/19 25 10/12/2024 CBC WITH DIFFE RENTI AL/PL ATELE T hemoglobin 12.4 g/dL 13.0-1 7.7 below low normal Not Available [facility] ([facility]) [address] [place], [address], 10/12/2024 08:07:38 10/12/19 25 10/12/2024 CBC WITH DIFFE RENTI AL/PL ATELE T hematocrit 37.1 % 37.5-5 1.0 below low normal Not Available [facility] ([facility]) [address] [place], [address], 10/12/2024 08:07:38 10/12/1910/12/2024 CBC WITH DIFFE RENTI AL/PL ATELE T MCV 94 fL 79-97 normal Not Available [facility] ([facility]) [address] [place], [address], 10/12/2024 08:07:38 10/12/19 25 10/12/2024 CBC WITH DIFFE RENTI AL/PL ATELE T MCH 31.5 pg 26.6-3 3.0 normal Not Available [facility] ([facility]) [address] [place], [address], 10/12/2024 08:07:38 10/12/19 25 10/12/2024 CBC WITH DIFFE RENTI AL/PL ATELE T MCHC 33.4 g/dL 31.5-3 5.7 normal Not Available [facility] ([facility]) [address] [facility], [place], [address], 10/12/2024 08:07:38 10/12/19 25 10/12/2024 CBC WITH DIFFE RENTI AL/PL ATELE T RDW 13.3 % 11.6-1 5.4 Not Available [facility] ([facility]) [address] [place], [address], 10/12/2024 08:07:38 10/12/19 25 10/12/2024 CBC WITH DIFFE RENTI AL/PL ATELE T platelets 217 x10e3 /uL 150-45 0 normal Not Available [facility] ([facility]) [address] [facility], [place], [address], 10/12/2024 08:07:38 10/12/19 25 10/12/2024 CBC WITH DIFFE RENTI AL/PL ATELE T neutrophils 76 % not estab. normal Not Available [facility] ([facility]) [address] [facility], [place], [address], 10/12/2024 08:07:38 10/12/19 25 10/12/2024 CBC WITH DIFFE RENTI AL/PL ATELE T lymphs 8 % not estab. normal Not Available [facility] ([facility]) [address] [place], [address], 10/12/2024 08:07:38 10/12/19 25 10/12/2024 CBC WITH DIFFE RENTI AL/PL ATELE T monocytes 10 % not estab. normal Not Available [facility] ([facility]) [address] [place], [address], 10/12/2024 08:07:38 10/12/19 25 10/12/2024 CBC WITH DIFFE RENTI AL/PL ATELE T eos 4 % not estab. normal Not Available [facility] ([facility]) [address] [place], [address], 10/12/2024 08:07:38 10/12/19 25 10/12/2024 CBC WITH DIFFE RENTI AL/PL ATELE T basos 0 % not estab. normal Not Available [facility] ([facility]) [address] [facility], [place], [address], 10/12/2024 08:07:38 10/12/19 25 10/12/2024 CBC WITH DIFFE RENTI AL/PL ATELE T immature cells GAME OPERATOR Not Available [facility] ([facility]) [address] [place], [address], 10/12/2024 08:07:38 10/12/19 25 10/12/2024 CBC WITH DIFFE RENTI AL/PL ATELE T neutrophils (absolute) 5.5 x10e3 /uL 1.4-7. 0 normal Not Available [facility] ([facility]) [address] [place], [address], 10/12/2024 08:07:38 10/12/19 25 10/12/2024 CBC WITH DIFFE RENTI AL/PL ATELE T lymphs (absolute) 0.6 x10e3 /uL 0.7-3. 1 below low normal Not Available [facility] ([facility]) [address] [place], [address], 10/12/2024 08:07:38 10/12/19 25 10/12/2024 CBC WITH DIFFE RENTI AL/PL ATELE T monocytes(ab solute) 0.7 x10e3 /uL 0.1-0. 9 normal Not Available [facility] ([facility]) [address] [place], [address], 10/12/2024 08:07:38 10/12/19 25 10/12/2024 CBC WITH DIFFE RENTI AL/PL ATELE T eos (absolute) 0.3 x10e3 /uL 0.0-0. 4 normal Not Available [facility] ([facility]) [address] [facility], [place], [address], 10/12/2024 08:07:38 10/12/19 25 10/12/2024 CBC WITH DIFFE RENTI AL/PL ATELE T baso (absolute) 0.0 x10e3 /uL 0.0-0. 2 normal Not Available [facility] ([facility]) [address] [facility], [place], [address], 10/12/2024 08:07:38 10/12/19 25 10/12/2024 CBC WITH DIFFE RENTI AL/PL ATELE T immature granulocytes 2 % not estab. Not Available [facility] ([facility]) [address] [facility], [place], [address], 10/12/2024 08:07:38 10/12/19 25 10/12/2024 CBC WITH DIFFE RENTI AL/PL ATELE T immature grans (abs) 0.1 x10e3 /uL 0.0-0. 1 Not Available [facility] ([facility]) [address] [facility], [place], [address], 10/12/2024 08:07:38 10/12/19 25 10/12/2024 CBC WITH DIFFE RENTI AL/PL ATELE T NRBC GAME OPERATOR Not Available [facility] ([facility]) [address] [facility], [place], [address], 10/12/2024 08:07:38 10/12/19 25 10/12/2024 CBC WITH DIFFE RENTI AL/PL ATELE T hematology comments: GAME OPERATOR Not Available [facility] ([facility]) [address] [facility], [place], [address], 10/12/2024 08:07:38 10/12/19 25 10/12/2024 IRON AND TIBC iron bind.cap.(TI BC) 194 ug/dL 250-45 0 below low normal Not Available [facility] ([facility]) [address] [place], [address], 10/12/2024 08:07:39 10/12/19 25 10/12/2024 IRON AND TIBC UIBC 160 ug/dL 111-34 3 normal Not Available [facility] ([facility]) [address] [place], [address], 10/12/2024 08:07:39 10/12/19 25 10/12/2024 IRON AND TIBC iron 34 ug/dL 38-169 below low normal Not Available [facility] ([facility]) [address] [place], [address], 10/12/2024 08:07:39 10/12/19 25 10/12/2024 IRON AND TIBC iron saturation 18 % 15-55 normal Not Available [facility] ([facility]) [address] [place], [address], 10/12/2024 08:07:39 10/12/19 25 10/12/2024 VITAM IN B12 AND FOLAT E vitamin B12 504 pg/mL 232-12 45 normal Not Available [facility] ([facility]) [address] [place], [address], 10/12/2024 08:07:39 10/12/19 25 10/12/2024 VITAM IN B12 AND FOLAT E folate (folic acid), serum >20.0 NG/mL >3.0 A serum folat e zhou ntrat ion of less than 3.1 ng/mL is consi dered to repre sent clini sheri defic iency . Not Available [facility] ([facility]) [address] [place], [address], 10/12/2024 08:07:39 10/12/19 25 10/12/2024 VITAM IN D, 25-HY DROXY vitamin D, 25-hydroxy 46.5 NG/mL 30.0-1 00.0 Vitam in D defic iency has been defin ed by the Insti tute of Medic ine and an Endoc rine Socie ty pract ice guide line as a level of serum 25-OH vitam in D less than 20 ng/mL (1,2) . The Endoc rine Socie ty went on to furth er defin e vitam in D insuf ficie ncy as a level betwe en 21 and 29 ng/mL (2). 1. IOM (Inst itute of Medic ine). 2010. Dieta ry refer ence intak es for calci um and D. Fannie shore [place]: The [facility] . 2. Elder whaley [place], Primo martin [place], Oliver off-F errivory i CANO, et al. Evalu ation , treat ment, and preve ntion of vitam in D defic iency : an Endoc rine Socie ty clini sheri pract ice guide line. JCEM. 2010; 96(7) :1911 -30. Not Available [facility] ([facility]) [address] [place], [address], 10/12/2024 08:07:40 10/12/19 25 10/12/2024 TRANG TIN ferritin 428 NG/mL 30-400 above high normal Not Available [facility] ([facility]) [address] [place], [address], 10/12/2024 08:07:40 04/14/20 24 04/06/2024 arter ial study , lower extre mity, compl ete No observ ation record ed. [email or web address] [facility] [address], [place], [address], 04/17/2024 09:08:08 05/03/20 24 04/28/2024 trans -thor acic echoc ardio gram (TTE) (PROC ) No observ ation record ed. irma [facility] [address], [place], [address], 05/03/2024 13:45:18 12/02/19 25 12/01/2024 MRI, ankle , w/o contr ast No observ ation record ed. DOYLE [facility] ([facility]) [address], [place], [address], 12/01/2024 18:13:51 12/02/19 25 12/01/2024 MRI, ankle , w/o contr ast No observ ation record ed. [email or web address] [facility] [address] [place], [address], 12/01/2024 15:57:12 Result Notes None recorded. Problems Name Problem SNOMED Code Status Onset Date Resolution Date Notes Provider Name and Address Organization Details Recorded Time Hyperlipid emia 33889948 Active Chantel Leigh NP [address] [address], [place], [address], [place] [facility] 13:47:40 Hypothyroi dism 91214310 Active Chantel Leigh NP [address] [facility] [address], [place], [address], [place] [facility] 2 13:47:42 Ex-smoker 3902298 Active 45 pack year history Chantel Leigh NP [address] [facility], [facility] [address], [place], [place], [address], [place] [facility] 2 13:48:13 Major depressive disorder 669981251 Active Chantel Leigh NP [address] [facility] [address], [place], [address], [place] [facility] 2 13:48:34 Irritable bowel syndrome 52745635 Active mixed Chantel Leigh NP [address] [facility] [address], [place], [address], [place] [facility] 2 13:48:48 Anemia 590061433 Active Chantel Leigh NP [address] [facility] [address], [place], [address], [place] [facility] 2 13:49:14 Neuropathy 267729039 Active Chantel Leigh NP [address] [facility], [place], [address], [place] [facility] 2 13:49:42 Polyarthro mitra 96175595 Active [facility] no RA diagnosis Chantel Leigh NP [address] [facility], [place], [address], [place] [facility] 2 13:50:40 Osteoarthr itis 084401599 Active Chantel Leigh NP [address] [facility] [address], [place], [address], [place] [facility] 2 13:50:16 Coronary arterioscl erosis 72695946 Active Dr. Jean-Q6 months Chantel Leigh NP [address] [facility], [address], [place], [address], [place] [facility] 2 13:52:17 Myocardial infarction 22173920 Active 03/02/04 Chantel Leigh NP [address] [facility] [address], [place], [address], [place] [facility] 2 13:51:41 Peripheral vascular disease 993136449 Active Chantel Leigh NP [address] [facility], [address], [place], [address], [place] [facility] 2 13:52:27 Carotid artery stenosis 45448613 Active Chantel Leigh NP [address] [facility], [address], [place], [address], [place] [facility] 2 13:52:35 Productive cough 55716748 Active Chantel Leigh NP [address] [facility], [address], [place], [address], [place] [facility] 2 13:52:59 Bradycardi a 73019680 Active Chantel Leigh NP [address] [facility] [address], [place], [address], [place] [facility] 2 13:53:52 Central sleep apnea syndrome 41112033 Active BiPap-ashwin ged by Dr. Jorge Leigh, ZUNILDA [address] [facility], [facility] [address], [place], [address], [place] [facility] 14:08:00 Moderate pain 16897528 Active 2021 Annie Siddiqi null, [place] [facility] 08:24:13 Rheumatoid arthritis 63381570 Active 2022 Chantel Leigh NP [address] [facility] [address], [place], [address], [place] [facility] 14:05:47 Chronic obstructiv e pulmonary disease 84037915 Active 2022 Chantel Leigh NP [address] [facility], [facility] [address], [place], [address], [place] [facility] 14:06:07 Problem Notes None recorded. Procedures Surgical History Date Name Laterality Status Provider Name and Address Organization Details Recorded Time 1 Colonoscopy completed Chantel Leigh NP [address] [facility] [address], [place], [address], [place] [facility] 04/28/2022 13:55:42 201 8 Eye Surgery completed Lupe Ny [place] [facility] 04/28/2022 13:23:47 200 4 Stent completed Lupe Petrjunior [place] [facility] 04/28/2022 13:23:47 199 0 Other completed Lupe Petrmoicz [place] [facility] 04/28/2022 13:23:47 Imaging Results Imaging Date Name Status LastModified by Organization Details LastModified Time 04/06/2024 arterial study, lower extremity, complete completed [facility] [address], [address], 04/17/2024 09:08:08 04/28/2024 trans-thoracic echocardiogram (TTE) (PROC) completed [facility], [address], 05/03/2024 13:45:18 12/01/2024 MRI, ankle, w/o contrast active DOYLE [facility] ([facility]) [address], [place], [address], 12/01/2024 18:13:51 12/01/2024 MRI, ankle, w/o contrast completed [email or web address] [address], [place], [address], 12/01/2024 15:57:12 Procedure Notes None recorded. Medical Equipment None Reported. Allergies Allergen ID Allergen Name Allergen Category Reaction Reaction Severity Criticality Documentation Date Start Date Code Code System Note Provider Name and Address Organization Details Recorded Time 233 bee pollen environme nt,medica tion Not available Not available Not available 04/28/2022 33232 7 RxNorm Lupe Petrowclint null, [place] [facility] 13:31:08 2333 codeine medicatio n Not available Not available Not available 04/28/2022 2670 RxNorm Lupe Petrowclint null, [place] [facility] 13:31:23 2484 honey preparati on food,medi cation Not available Not available Not available 05/26/2022 25012 9 RxNorm Lupe Petrowicz null, [place] [facility] 11:26:43 Medications Name Sig Start Date Stop Date Status Note LastModified by Organization Details LastModified Time celecoxib 200 mg capsule take 1 capsule by mouth twice a day active Not Available Not Available No t Available atorvastati n 80 mg tablet take 1 tablet by mouth once daily active Not Available Not Available No t Available prednisone 10 mg tablet take 1 tablet by mouth once daily 01/04 completed Not Available Not Available Not Available cefpodoxime 200 mg tablet take 1 tablet by mouth every 12 hours for 5 days STARTING ON 03/29/2404/06 completed Not Available Not Available Not Available hydrocodone 5 mg-acetamin ophen 325 mg tablet Take 2 tablets twice a day by oral route as needed. 10/24 completed Not Available Not Available Not Available prednisone 20 mg tablet TAKE 3 TABLETS BY MOUTH ONCE A DAY FOR 3 DAYS, THEN TAKE 2 TABLET... (REFER TO PRESCRIPT ION NOTES). active Not Available Not Available No t Available prednisone 5 mg tablet TAKE 4 TABLETS BY MOUTH ONCE DAILY WITH BREAKFAST FOR 1 WEEK, THE... (REFER TO PRESCRIPT ION NOTES). 10/10 completed Not Available Not Available Not Available sulfamethox azole 800 mg-trimetho prim 160 mg tablet TAKE 1 TABLET BY MOUTH TWICE A DAY FOR 7 DAYS 04/28 completed Not Available Not Available Not Available hydrocodone 10 mg-acetamin ophen 325 mg tablet take 1 tablet by mouth twice a day if needed 08/03 completed Not Available Not Available Not Available aspirin 81 mg tablet,lorena yed release take 1 tablet by mouth once daily 2024 active Not Available Not Available Not Avai lable levothyroxi ne 100 mcg tablet TAKE 1 TABLET BY MOUTH EVERY DAY 04/27 completed Not Available Not Available Not Available potassium chloride ER 20 mEq tablet,exte nded release(par t/cryst) take 1 tablet by mouth three times a day with meals active Not Available Not Available No t Available magnesium oxide 400 mg (241.3 mg magnesium) tablet take 1/2 tablet by mouth once daily active Not Available Not Available No t Available methotrexat e sodium 2.5 mg tablet take 10 tablets by mouth every week active Not Available Not Available No t Available prednisone 2.5 mg tablet take 1 tablet by mouth once daily 04/06 completed Not Available Not Available Not Available levothyroxi ne 125 mcg tablet take 1 tablet by mouth once daily active Not Available Not Available No t Available gabapentin 300 mg capsule TAKE 1 CAPSULE BY MOUTH THREE TIMES A DAY 01/18 completed Not Available Not Available Not Available folic acid 1 mg tablet take 1 tablet by mouth once daily active Not Available Not Available No t Available gabapentin 100 mg capsule take 1 capsule by mouth three times a day if needed active Not Available Not Available No t Available hydroxychlo roquine 200 mg tablet take 2 tablets by mouth once daily 10/10 completed Not Available Not Available Not Available epinephrine 0.3 mg/0.3 mL injection, auto-inject or inject 0.3 MILLILITE RS ( 0.3 milligram s ) intramusc ularly if needed as directed active Not Available Not Available No t Available celecoxib 100 mg capsule take 1 capsule by mouth twice a day 04/06 completed Not Available Not Available Not Available fluticasone propionate 50 mcg/actuati on nasal spray,suspe nsion INSTILL 2 SPRAYS INTO EACH NOSTRIL ONCE DAILY active Not Available Not Available No t Available dicyclomine 10 mg capsule take 1 capsule by mouth four times a day NEEDED FOR PAIN active Not Available Not Available No t Available levothyroxi ne 112 mcg tablet TAKE 1 TABLET BY MOUTH EVERY DAY 05/26 completed Not Available Not Available Not Available Ventolin HFA 90 mcg/actuati on aerosol inhaler inhale 2 puffs by mouth and INTO THE LUNGS every 6 to 8 hours if needed active Not Available Not Available No t Available magnesium 200 mg tablet Take 1 tablet every day by oral route. 05/28 completed Not Available Not Available Not Available azithromyci n 500 mg tablet TAKE 1 TABLET BY MOUTH ON 03/29/2404/06 completed Not Available Not Available Not Available bupropion HCl XL 150 mg 24 hr tablet, extended release take 3 tablets by mouth once daily 2024 active Not Available Not Available Not Avai lable lactulose 10 gram/15 mL oral solution TAKE 15 ML BY MOUTH EVERY DAY NEEDED active Not Available Not Available No t Available magnesium 05/28 completed Not Available Not Available Not Available calcium 600 mg (as carbonate)- vitamin D3 10 mcg (400 unit) tablet take 1 tablet by mouth twice a day with meals active Not Available Not Available No t Available FeroSul 325 mg (65 mg iron) tablet take 1 tablet by mouth once daily active Not Available Not Available No t Available Calcium 600 with Vitamin D3 600 mg-10 mcg (400 unit) chewable tablet TAKE 1 TABLET BY MOUTH TWICE A DAY WITH MEALS 03/04 completed Not Available Not Available Not Available oxycodone 10 mg tablet take 1 tablet by mouth twice a day active Not Available Not Available No t Available Robitussin DM Max active Not Available Not Available Not Available potassium chloride ER 20 mEq tablet,exte nded release TAKE 1 TABLET BY MOUTH THREE TIMES A DAY WITH MEALS 09/13 completed Not Available Not Available Not Available naloxone 4 mg/actuatio n nasal spray spray contents of 1 unit in 1 nostril UPON SIGNS OF OVERDOSE CALL... (REFER TO PRESCRIPT ION NOTES). active Not Available Not Available No t Available Readi-Cat 2 2 % (w/v) oral suspension DRINK 450 MILLITERS (1 BOTTLE) BY MOUTH [address] SCAN.... (REFER TO PRESCRIPT ION NOTES). 04/06 completed Not Available Not Available Not Available Maxwelljanetangélica Ellipta 100 mcg-62.5 mcg-25 mcg powder for inhalation inhale 1 puff by mouth and INTO THE LUNGS once daily active Not Available Not Available No t Available Flowflex COVID-19 Antigen Home Test kit USE DIRECTED 10/10 completed Not Available Not Available Not Available Vitals Date Recorded Heart rate Heart rate Systolic blood pressure Diastolic blood pressure Systolic blood pressure Diastolic blood pressure Provider Name and Address Organization Details Last Updated DateTime 4 58 /min 63 /min 123 mm[Hg] 83 mm[Hg] 120 mm[Hg] 55 mm[Hg] Not Available [facility] 22:45:04 Date Recorded Body height Body mass index (BMI) Body weight Oxygen saturation Oxygen saturation in Arterial blood by Pulse oximetry Heart rate Systolic blood pressure Diastolic blood pressure Provider Name and Address Organization Details Last Updated DateTime 4 177.8 cm 24.8 kg/m2 71730.4 8 g 96 % 96 % 75 /min 128 mm[Hg] 64 mm[Hg] Mahimickey duggan MD - [facility] 13:28:49 Date Recorded Heart rate Systolic blood pressure Diastolic blood pressure Provider Name and Address Organization Details Last Updated DateTime 05/12/2024 75 /min 124 mm[Hg] 101 mm[Hg] Not Available [facility] 05/12/2024 22:47:05 Date Recorded Heart rate Systolic blood pressure Diastolic blood pressure Provider Name and Address Organization Details Last Updated DateTime 05/13/2024 68 /min 95 mm[Hg] 52 mm[Hg] Not Available [facility] 05/13/2024 22:31:07 Date Recorded Heart rate Systolic blood pressure Diastolic blood pressure Provider Name and Address Organization Details Last Updated DateTime 05/14/2024 63 /min 141 mm[Hg] 83 mm[Hg] Not Available [facility] 05/14/2024 22:15:06 Date Recorded Heart rate Systolic blood pressure Diastolic blood pressure Provider Name and Address Organization Details Last Updated DateTime 05/15/2024 57 /min 138 mm[Hg] 74 mm[Hg] Not Available [facility] 05/15/2024 21:46:01 Date Recorded Heart rate Systolic blood pressure Diastolic blood pressure Provider Name and Address Organization Details Last Updated DateTime 05/16/2024 70 /min 114 mm[Hg] 61 mm[Hg] Not Available [facility] 05/16/2024 22:00:06 Date Recorded Heart rate Systolic blood pressure Diastolic blood pressure Provider Name and Address Organization Details Last Updated DateTime 05/17/2024 79 /min 124 mm[Hg] 64 mm[Hg] Not Available [facility] 05/17/2024 21:33:04 Date Recorded Heart rate Systolic blood pressure Diastolic blood pressure Provider Name and Address Organization Details Last Updated DateTime 05/18/2024 100 /min 141 mm[Hg] 51 mm[Hg] Not Available [facility] 05/18/2024 23:05:04 Date Recorded Heart rate Systolic blood pressure Diastolic blood pressure Provider Name and Address Organization Details Last Updated DateTime 05/20/2024 81 /min 141 mm[Hg] 63 mm[Hg] Not Available [facility] 05/20/2024 19:04:03 Date Recorded Heart rate Systolic blood pressure Diastolic blood pressure Provider Name and Address Organization Details Last Updated DateTime 05/21/2024 77 /min 141 mm[Hg] 93 mm[Hg] Not Available [facility] 05/21/2024 22:40:06 Date Recorded Heart rate Systolic blood pressure Diastolic blood pressure Provider Name and Address Organization Details Last Updated DateTime 05/22/2024 60 /min 138 mm[Hg] 62 mm[Hg] Not Available [facility] 05/22/2024 22:12:03 Date Recorded Heart rate Systolic blood pressure Diastolic blood pressure Provider Name and Address Organization Details Last Updated DateTime 05/23/2024 78 /min 122 mm[Hg] 63 mm[Hg] Not Available [facility] 05/23/2024 22:10:04 Date Recorded Heart rate Systolic blood pressure Diastolic blood pressure Provider Name and Address Organization Details Last Updated DateTime 05/24/2024 71 /min 112 mm[Hg] 59 mm[Hg] Not Available [facility] 05/24/2024 20:32:02 Date Recorded Heart rate Systolic blood pressure Diastolic blood pressure Provider Name and Address Organization Details Last Updated DateTime 05/25/2024 84 /min 123 mm[Hg] 66 mm[Hg] Not Available [facility] 05/25/2024 22:28:03 Date Recorded Heart rate Systolic blood pressure Diastolic blood pressure Provider Name and Address Organization Details Last Updated DateTime 05/26/2024 79 /min 122 mm[Hg] 61 mm[Hg] Not Available [facility] 05/26/2024 20:53:01 Date Recorded Heart rate Heart rate Systolic blood pressure Diastolic blood pressure Systolic blood pressure Diastolic blood pressure Provider Name and Address Organization Details Last Updated DateTime 50 /min 63 /min 135 mm[Hg] 81 mm[Hg] 136 mm[Hg] 70 mm[Hg] Not Available [facility] 20:51:04 Date Recorded Heart rate Systolic blood pressure Diastolic blood pressure Provider Name and Address Organization Details Last Updated DateTime 05/28/2024 75 /min 125 mm[Hg] 62 mm[Hg] Not Available [facility] 05/28/2024 22:45:02 Date Recorded Heart rate Systolic blood pressure Diastolic blood pressure Provider Name and Address Organization Details Last Updated DateTime 05/29/2024 92 /min 121 mm[Hg] 68 mm[Hg] Not Available [facility] 05/29/2024 21:05:02 Date Recorded Heart rate Systolic blood pressure Diastolic blood pressure Provider Name and Address Organization Details Last Updated DateTime 05/30/2024 61 /min 111 mm[Hg] 54 mm[Hg] Not Available [facility] 05/30/2024 22:23:02 Date Recorded Heart rate Systolic blood pressure Diastolic blood pressure Provider Name and Address Organization Details Last Updated DateTime 05/31/2024 75 /min 121 mm[Hg] 59 mm[Hg] Not Available [facility] 05/31/2024 21:00:04 Date Recorded Heart rate Systolic blood pressure Diastolic blood pressure Provider Name and Address Organization Details Last Updated DateTime 06/01/2024 74 /min 132 mm[Hg] 68 mm[Hg] Not Available [facility] 06/01/2024 21:06:06 Date Recorded Heart rate Systolic blood pressure Diastolic blood pressure Provider Name and Address Organization Details Last Updated DateTime 06/02/2024 72 /min 129 mm[Hg] 58 mm[Hg] Not Available [facility] 06/02/2024 20:07:03 Date Recorded Heart rate Systolic blood pressure Diastolic blood pressure Provider Name and Address Organization Details Last Updated DateTime 06/03/2024 75 /min 125 mm[Hg] 65 mm[Hg] Not Available [facility] 06/03/2024 20:31:02 Date Recorded Heart rate Systolic blood pressure Diastolic blood pressure Provider Name and Address Organization Details Last Updated DateTime 06/04/2024 81 /min 109 mm[Hg] 53 mm[Hg] Not Available [facility] 06/04/2024 20:39:03 Date Recorded Heart rate Systolic blood pressure Diastolic blood pressure Provider Name and Address Organization Details Last Updated DateTime 06/05/2024 76 /min 110 mm[Hg] 56 mm[Hg] Not Available [facility] 06/05/2024 16:49:04 Date Recorded Heart rate Systolic blood pressure Diastolic blood pressure Provider Name and Address Organization Details Last Updated DateTime 06/06/2024 84 /min 97 mm[Hg] 55 mm[Hg] Not Available [facility] 06/06/2024 20:23:03 Date Recorded Heart rate Systolic blood pressure Diastolic blood pressure Provider Name and Address Organization Details Last Updated DateTime 06/07/2024 76 /min 122 mm[Hg] 60 mm[Hg] Not Available [facility] 06/07/2024 20:42:04 Date Recorded Heart rate Systolic blood pressure Diastolic blood pressure Provider Name and Address Organization Details Last Updated DateTime 06/08/2024 76 /min 128 mm[Hg] 82 mm[Hg] Not Available [facility] 06/08/2024 21:34:02 Date Recorded Heart rate Systolic blood pressure Diastolic blood pressure Provider Name and Address Organization Details Last Updated DateTime 06/09/2024 76 /min 124 mm[Hg] 59 mm[Hg] Not Available [facility] 06/09/2024 18:58:05 Date Recorded Heart rate Systolic blood pressure Diastolic blood pressure Provider Name and Address Organization Details Last Updated DateTime 06/10/2024 74 /min 132 mm[Hg] 62 mm[Hg] Not Available [facility] 06/10/2024 21:09:01 Date Recorded Heart rate Systolic blood pressure Diastolic blood pressure Provider Name and Address Organization Details Last Updated DateTime 06/11/2024 70 /min 125 mm[Hg] 58 mm[Hg] Not Available [facility] 06/11/2024 20:53:05 Date Recorded Heart rate Systolic blood pressure Diastolic blood pressure Provider Name and Address Organization Details Last Updated DateTime 06/12/2024 66 /min 129 mm[Hg] 71 mm[Hg] Not Available [facility] 06/12/2024 19:17:05 Date Recorded Heart rate Systolic blood pressure Diastolic blood pressure Provider Name and Address Organization Details Last Updated DateTime 06/13/2024 81 /min 125 mm[Hg] 59 mm[Hg] Not Available [facility] 06/13/2024 20:45:02 Date Recorded Heart rate Systolic blood pressure Diastolic blood pressure Provider Name and Address Organization Details Last Updated DateTime 06/14/2024 77 /min 110 mm[Hg] 56 mm[Hg] Not Available [facility] 06/14/2024 19:41:01 Date Recorded Heart rate Systolic blood pressure Diastolic blood pressure Provider Name and Address Organization Details Last Updated DateTime 06/15/2024 74 /min 114 mm[Hg] 56 mm[Hg] Not Available [facility] 06/15/2024 21:08:03 Date Recorded Heart rate Heart rate Systolic blood pressure Diastolic blood pressure Systolic blood pressure Diastolic blood pressure Provider Name and Address Organization Details Last Updated DateTime 60 /min 73 /min 140 mm[Hg] 89 mm[Hg] 127 mm[Hg] 77 mm[Hg] Not Available [facility] 19:48:04 Date Recorded Heart rate Systolic blood pressure Diastolic blood pressure Provider Name and Address Organization Details Last Updated DateTime 06/17/2024 60 /min 121 mm[Hg] 74 mm[Hg] Not Available [facility] 06/17/2024 19:34:01 Date Recorded Heart rate Systolic blood pressure Diastolic blood pressure Provider Name and Address Organization Details Last Updated DateTime 06/18/2024 65 /min 126 mm[Hg] 56 mm[Hg] Not Available [facility] 06/18/2024 17:58:01 Date Recorded Heart rate Systolic blood pressure Diastolic blood pressure Provider Name and Address Organization Details Last Updated DateTime 06/19/2024 78 /min 115 mm[Hg] 52 mm[Hg] Not Available [facility] 06/19/2024 20:32:04 Date Recorded Heart rate Systolic blood pressure Diastolic blood pressure Provider Name and Address Organization Details Last Updated DateTime 06/20/2024 76 /min 116 mm[Hg] 54 mm[Hg] Not Available [facility] 06/20/2024 20:42:04 Date Recorded Heart rate Systolic blood pressure Diastolic blood pressure Provider Name and Address Organization Details Last Updated DateTime 06/21/2024 75 /min 121 mm[Hg] 85 mm[Hg] Not Available [facility] 06/21/2024 20:07:01 Date Recorded Heart rate Systolic blood pressure Diastolic blood pressure Provider Name and Address Organization Details Last Updated DateTime 06/22/2024 80 /min 134 mm[Hg] 75 mm[Hg] Not Available [facility] 06/22/2024 23:08:03 Date Recorded Heart rate Systolic blood pressure Diastolic blood pressure Provider Name and Address Organization Details Last Updated DateTime 06/23/2024 65 /min 113 mm[Hg] 51 mm[Hg] Not Available [facility] 06/23/2024 20:04:01 Date Recorded Heart rate Systolic blood pressure Diastolic blood pressure Provider Name and Address Organization Details Last Updated DateTime 06/24/2024 66 /min 115 mm[Hg] 60 mm[Hg] Not Available [facility] 06/24/2024 20:54:01 Date Recorded Heart rate Systolic blood pressure Diastolic blood pressure Provider Name and Address Organization Details Last Updated DateTime 06/25/2024 62 /min 123 mm[Hg] 76 mm[Hg] Not Available [facility] 06/25/2024 22:36:01 Date Recorded Heart rate Systolic blood pressure Diastolic blood pressure Provider Name and Address Organization Details Last Updated DateTime 06/26/2024 79 /min 124 mm[Hg] 62 mm[Hg] Not Available [facility] 06/26/2024 21:53:05 Date Recorded Heart rate Systolic blood pressure Diastolic blood pressure Provider Name and Address Organization Details Last Updated DateTime 06/27/2024 72 /min 114 mm[Hg] 55 mm[Hg] Not Available [facility] 06/27/2024 20:46:02 Date Recorded Heart rate Systolic blood pressure Diastolic blood pressure Provider Name and Address Organization Details Last Updated DateTime 06/28/2024 74 /min 126 mm[Hg] 85 mm[Hg] Not Available [facility] 06/28/2024 19:06:02 Date Recorded Heart rate Systolic blood pressure Diastolic blood pressure Provider Name and Address Organization Details Last Updated DateTime 06/29/2024 48 /min 127 mm[Hg] 77 mm[Hg] Not Available [facility] 06/29/2024 21:32:02 Date Recorded Heart rate Systolic blood pressure Diastolic blood pressure Provider Name and Address Organization Details Last Updated DateTime 06/30/2024 72 /min 124 mm[Hg] 83 mm[Hg] Not Available [facility] 06/30/2024 21:53:05 Date Recorded Heart rate Systolic blood pressure Diastolic blood pressure Provider Name and Address Organization Details Last Updated DateTime 07/01/2024 66 /min 109 mm[Hg] 71 mm[Hg] Not Available [facility] 07/01/2024 22:22:01 Date Recorded Heart rate Systolic blood pressure Diastolic blood pressure Provider Name and Address Organization Details Last Updated DateTime 07/02/2024 64 /min 106 mm[Hg] 56 mm[Hg] Not Available [facility] 07/02/2024 21:39:01 Date Recorded Heart rate Systolic blood pressure Diastolic blood pressure Provider Name and Address Organization Details Last Updated DateTime 07/03/2024 68 /min 132 mm[Hg] 60 mm[Hg] Not Available [facility] 07/03/2024 22:11:02 Date Recorded Heart rate Systolic blood pressure Diastolic blood pressure Provider Name and Address Organization Details Last Updated DateTime 07/04/2024 73 /min 130 mm[Hg] 80 mm[Hg] Not Available [facility] 07/04/2024 22:38:04 Date Recorded Heart rate Systolic blood pressure Diastolic blood pressure Provider Name and Address Organization Details Last Updated DateTime 07/06/2024 81 /min 144 mm[Hg] 81 mm[Hg] Not Available [facility] 07/06/2024 20:06:03 Date Recorded Heart rate Systolic blood pressure Diastolic blood pressure Provider Name and Address Organization Details Last Updated DateTime 07/07/2024 80 /min 128 mm[Hg] 87 mm[Hg] [facility] Available [facility] 07/07/2024 21:21:05 Date Recorded Heart rate Systolic blood pressure Diastolic blood pressure Provider Name and Address Organization Details Last Updated DateTime 07/08/2024 57 /min 109 mm[Hg] 55 mm[Hg] Not Available [facility] 07/08/2024 22:09:04 Date Recorded Heart rate Systolic blood pressure Diastolic blood pressure Provider Name and Address Organization Details Last Updated DateTime 07/10/2024 52 /min 132 mm[Hg] 87 mm[Hg] Not Available [facility] 07/10/2024 22:44:05 Date Recorded Heart rate Systolic blood pressure Diastolic blood pressure Provider Name and Address Organization Details Last Updated DateTime 07/11/2024 69 /min 125 mm[Hg] 59 mm[Hg] Not Available [facility] 07/11/2024 23:24:03 Date Recorded Heart rate Systolic blood pressure Diastolic blood pressure Provider Name and Address Organization Details Last Updated DateTime 07/12/2024 79 /min 127 mm[Hg] 74 mm[Hg] Not Available [facility] 07/12/2024 22:46:04 Date Recorded Heart rate Systolic blood pressure Diastolic blood pressure Provider Name and Address Organization Details Last Updated DateTime 07/13/2024 72 /min 137 mm[Hg] 70 mm[Hg] Not Available [facility] 07/13/2024 20:45:03 Date Recorded Heart rate Systolic blood pressure Diastolic blood pressure Provider Name and Address Organization Details Last Updated DateTime 07/14/2024 55 /min 149 mm[Hg] 86 mm[Hg] Not Available [facility] 07/14/2024 21:23:05 Date Recorded Heart rate Systolic blood pressure Diastolic blood pressure Provider Name and Address Organization Details Last Updated DateTime 07/15/2024 70 /min 128 mm[Hg] 80 mm[Hg] Not Available [facility] 07/15/2024 20:00:05 Date Recorded Heart rate Systolic blood pressure Diastolic blood pressure Provider Name and Address Organization Details Last Updated DateTime 07/16/2024 73 /min 115 mm[Hg] 57 mm[Hg] Not Available [facility] 07/16/2024 20:23:02 Date Recorded Heart rate Systolic blood pressure Diastolic blood pressure Provider Name and Address Organization Details Last Updated DateTime 07/17/2024 78 /min 111 mm[Hg] 71 mm[Hg] Not Available [facility] 07/17/2024 22:07:05 Date Recorded Heart rate Systolic blood pressure Diastolic blood pressure Provider Name and Address Organization Details Last Updated DateTime 07/18/2024 73 /min 109 mm[Hg] 54 mm[Hg] Not Available [facility] 07/18/2024 23:24:03 Date Recorded Heart rate Systolic blood pressure Diastolic blood pressure Provider Name and Address Organization Details Last Updated DateTime 07/19/2024 73 /min 119 mm[Hg] 56 mm[Hg] Not Available [facility] 07/19/2024 22:15:08 Date Recorded Heart rate Systolic blood pressure Diastolic blood pressure Provider Name and Address Organization Details Last Updated DateTime 07/20/2024 72 /min 130 mm[Hg] 70 mm[Hg] Not Available [facility] 07/20/2024 21:57:07 Date Recorded Heart rate Systolic blood pressure Diastolic blood pressure Provider Name and Address Organization Details Last Updated DateTime 07/21/2024 79 /min 139 mm[Hg] 75 mm[Hg] Not Available [facility] 07/21/2024 23:23:02 Date Recorded Heart rate Systolic blood pressure Diastolic blood pressure Provider Name and Address Organization Details Last Updated DateTime 07/22/2024 69 /min 129 mm[Hg] 63 mm[Hg] Not Available [facility] 07/22/2024 22:37:03 Date Recorded Heart rate Heart rate Systolic blood pressure Diastolic blood pressure Systolic blood pressure Diastolic blood pressure Provider Name and Address Organization Details Last Updated DateTime 4 41 /min 63 /min 129 mm[Hg] 68 mm[Hg] 119 mm[Hg] 58 mm[Hg] Not Available [facility] 4 23:21:03 Date Recorded Heart rate Heart rate Systolic blood pressure Diastolic blood pressure Systolic blood pressure Diastolic blood pressure Provider Name and Address Organization Details Last Updated DateTime 4 68 /min 76 /min 150 mm[Hg] 85 mm[Hg] 126 mm[Hg] 63 mm[Hg] Not Available [facility] 4 23:03:03 Date Recorded Heart rate Systolic blood pressure Diastolic blood pressure Provider Name and Address Organization Details Last Updated DateTime 07/27/2024 62 /min 99 mm[Hg] 66 mm[Hg] Not Available [facility] 07/27/2024 21:30:02 Date Recorded Heart rate Systolic blood pressure Diastolic blood pressure Provider Name and Address Organization Details Last Updated DateTime 07/28/2024 71 /min 116 mm[Hg] 68 mm[Hg] Not Available [facility] 07/28/2024 21:57:07 Date Recorded Heart rate Systolic blood pressure Diastolic blood pressure Provider Name and Address Organization Details Last Updated DateTime 07/29/2024 65 /min 117 mm[Hg] 49 mm[Hg] Not Available [facility] 07/29/2024 22:24:01 Date Recorded Heart rate Systolic blood pressure Diastolic blood pressure Provider Name and Address Organization Details Last Updated DateTime 07/30/2024 61 /min 113 mm[Hg] 53 mm[Hg] Not Available [facility] 07/30/2024 21:02:02 Date Recorded Heart rate Systolic blood pressure Diastolic blood pressure Provider Name and Address Organization Details Last Updated DateTime 08/01/2024 63 /min 102 mm[Hg] 56 mm[Hg] Not Available [facility] 08/01/2024 21:22:03 Date Recorded Heart rate Systolic blood pressure Diastolic blood pressure Provider Name and Address Organization Details Last Updated DateTime 08/02/2024 64 /min 95 mm[Hg] 50 mm[Hg] Not Available [facility] 08/02/2024 21:30:05 Date Recorded Body height Body mass index (BMI) Body weight Heart rate Oxygen saturation Oxygen saturation in Arterial blood by Pulse oximetry Systolic blood pressure Diastolic blood pressure Provider Name and Address Organization Details Last Updated DateTime 177.8 cm 26.1 kg/m2 50971.8 1 g 52 /min 95 % 95 % 146 mm[Hg] 82 mm[Hg] Mahi duggan MD - [facility] 14:32:32 Date Recorded Heart rate Systolic blood pressure Diastolic blood pressure Provider Name and Address Organization Details Last Updated DateTime 08/03/2024 75 /min 117 mm[Hg] 58 mm[Hg] Not Available [facility] 08/03/2024 21:38:02 Date Recorded Heart rate Systolic blood pressure Diastolic blood pressure Provider Name and Address Organization Details Last Updated DateTime 08/04/2024 55 /min 147 mm[Hg] 83 mm[Hg] Not Available [facility] 08/04/2024 22:35:04 Date Recorded Heart rate Systolic blood pressure Diastolic blood pressure Provider Name and Address Organization Details Last Updated DateTime 08/05/2024 68 /min 124 mm[Hg] 84 mm[Hg] Not Available [facility] 08/05/2024 21:04:01 Date Recorded Heart rate Systolic blood pressure Diastolic blood pressure Provider Name and Address Organization Details Last Updated DateTime 08/06/2024 66 /min 166 mm[Hg] 101 mm[Hg] Not Available [facility] 08/06/2024 22:34:03 Date Recorded Heart rate Systolic blood pressure Diastolic blood pressure Provider Name and Address Organization Details Last Updated DateTime 08/07/2024 65 /min 142 mm[Hg] 62 mm[Hg] Not Available [facility] 08/07/2024 21:54:01 Date Recorded Heart rate Systolic blood pressure Diastolic blood pressure Provider Name and Address Organization Details Last Updated DateTime 08/08/2024 66 /min 100 mm[Hg] 51 mm[Hg] Not Available [facility] 08/08/2024 21:04:01 Date Recorded Heart rate Systolic blood pressure Diastolic blood pressure Provider Name and Address Organization Details Last Updated DateTime 08/09/2024 54 /min 136 mm[Hg] 67 mm[Hg] Not Available [facility] 08/09/2024 23:16:01 Date Recorded Heart rate Systolic blood pressure Diastolic blood pressure Provider Name and Address Organization Details Last Updated DateTime 08/10/2024 73 /min 114 mm[Hg] 77 mm[Hg] Not Available [facility] 08/10/2024 20:34:01 Date Recorded Heart rate Systolic blood pressure Diastolic blood pressure Provider Name and Address Organization Details Last Updated DateTime 08/11/2024 69 /min 122 mm[Hg] 59 mm[Hg] Not Available [facility] 08/11/2024 21:51:03 Date Recorded Heart rate Systolic blood pressure Diastolic blood pressure Provider Name and Address Organization Details Last Updated DateTime 08/12/2024 71 /min 145 mm[Hg] 65 mm[Hg] Not Available [facility] 08/12/2024 23:27:04 Date Recorded Heart rate Heart rate Systolic blood pressure Diastolic blood pressure Systolic blood pressure Diastolic blood pressure Provider Name and Address Organization Details Last Updated DateTime 70 /min 60 /min 135 mm[Hg] 67 mm[Hg] 128 mm[Hg] 77 mm[Hg] Not Available [facility] 22:22:04 Date Recorded Heart rate Systolic blood pressure Diastolic blood pressure Provider Name and Address Organization Details Last Updated DateTime 08/15/2024 64 /min 118 mm[Hg] 62 mm[Hg] Not Available [facility] 08/15/2024 20:15:03 Date Recorded Heart rate Systolic blood pressure Diastolic blood pressure Provider Name and Address Organization Details Last Updated DateTime 08/17/2024 57 /min 144 mm[Hg] 79 mm[Hg] Not Available [facility] 08/17/2024 20:11:03 Date Recorded Heart rate Systolic blood pressure Diastolic blood pressure Provider Name and Address Organization Details Last Updated DateTime 08/18/2024 61 /min 139 mm[Hg] 83 mm[Hg] Not Available [facility] 08/18/2024 21:25:01 Date Recorded Heart rate Systolic blood pressure Diastolic blood pressure Provider Name and Address Organization Details Last Updated DateTime 08/19/2024 51 /min 136 mm[Hg] 74 mm[Hg] Not Available [facility] 08/19/2024 17:54:05 Date Recorded Heart rate Systolic blood pressure Diastolic blood pressure Provider Name and Address Organization Details Last Updated DateTime 08/20/2024 70 /min 123 mm[Hg] 66 mm[Hg] Not Available [facility] 08/20/2024 22:39:01 Date Recorded Heart rate Systolic blood pressure Diastolic blood pressure Provider Name and Address Organization Details Last Updated DateTime 08/21/2024 54 /min 142 mm[Hg] 81 mm[Hg] Not Available [facility] 08/21/2024 20:28:02 Date Recorded Heart rate Systolic blood pressure Diastolic blood pressure Provider Name and Address Organization Details Last Updated DateTime 08/23/2024 75 /min 126 mm[Hg] 72 mm[Hg] [facility] 22:[facility]:04 Date Recorded Heart rate Systolic blood pressure Diastolic blood pressure Provider Name and Address Organization Details Last Updated DateTime 08/24/2024 74 /min 114 mm[Hg] 60 mm[Hg] [facility] Available [facility] 22:54:05 Date Recorded Heart rate Systolic blood pressure Diastolic blood pressure Provider Name and Address Organization Details Last Updated DateTime 08/25/2024 80 /min 124 mm[Hg] 78 mm[Hg] Not Available [facility] 08/25/2024 23:20:03 Date Recorded Heart rate Systolic blood pressure Diastolic blood pressure Provider Name and Address Organization Details Last Updated DateTime 08/27/2024 50 /min 124 mm[Hg] 75 mm[Hg] Not Available [facility] 08/27/2024 21:06:05 Date Recorded Heart rate Systolic blood pressure Diastolic blood pressure Provider Name and Address Organization Details Last Updated DateTime 08/28/2024 59 /min 125 mm[Hg] 64 mm[Hg] [facility] 22:01:03 Date Recorded Heart rate Systolic blood pressure Diastolic blood pressure Provider Name and Address Organization Details Last Updated DateTime 08/29/2024 77 /min 145 mm[Hg] 77 mm[Hg] Not Available [facility] 08/29/2024 22:27:02 Date Recorded Heart rate Systolic blood pressure Diastolic blood pressure Provider Name and Address Organization Details Last Updated DateTime 08/30/2024 56 /min 123 mm[Hg] 75 mm[Hg] Not Available [facility] 08/30/2024 20:33:06 Date Recorded Heart rate Systolic blood pressure Diastolic blood pressure Provider Name and Address Organization Details Last Updated DateTime 08/31/2024 70 /min 108 mm[Hg] 70 mm[Hg] Not Available [facility] 08/31/2024 18:15:01 Date Recorded Heart rate Systolic blood pressure Diastolic blood pressure Provider Name and Address Organization Details Last Updated DateTime 09/01/2024 65 /min 109 mm[Hg] 64 mm[Hg] [facility] Available [facility] 23:19:04 Date Recorded Heart rate Systolic blood pressure Diastolic blood pressure Provider Name and Address Organization Details Last Updated DateTime 09/02/2024 80 /min 133 mm[Hg] 68 mm[Hg] [facility] Available [facility]/02/[facility] 19:46:05 Date Recorded Heart rate Systolic blood pressure Diastolic blood pressure Provider Name and Address Organization Details Last Updated DateTime 09/03/2024 78 /min 138 mm[Hg] 60 mm[Hg] Not Available [facility] 09/03/2024 22:10:03 Date Recorded Heart rate Systolic blood pressure Diastolic blood pressure Provider Name and Address Organization Details Last Updated DateTime 09/04/2024 65 /min 150 mm[Hg] 83 mm[Hg] Not Available [facility] 09/04/2024 22:39:03 Date Recorded Heart rate Systolic blood pressure Diastolic blood pressure Provider Name and Address Organization Details Last Updated DateTime 09/05/2024 68 /min 151 mm[Hg] 80 mm[Hg] Not Available [facility] 09/05/2024 21:26:03 Date Recorded Heart rate Systolic blood pressure Diastolic blood pressure Provider Name and Address Organization Details Last Updated DateTime 09/06/2024 96 /min 137 mm[Hg] 88 mm[Hg] Not Available [facility] 09/06/2024 23:11:03 Date Recorded Heart rate Systolic blood pressure Diastolic blood pressure Provider Name and Address Organization Details Last Updated DateTime 09/07/2024 49 /min 119 mm[Hg] 73 mm[Hg] Not Available [facility] 09/07/2024 19:29:03 Date Recorded Heart rate Systolic blood pressure Diastolic blood pressure Provider Name and Address Organization Details Last Updated DateTime 09/08/2024 73 /min 109 mm[Hg] 57 mm[Hg] Not Available [facility] 09/08/2024 20:52:02 Date Recorded Heart rate Systolic blood pressure Diastolic blood pressure Provider Name and Address Organization Details Last Updated DateTime 09/09/2024 77 /min 130 mm[Hg] 79 mm[Hg] Not Available [facility] 09/09/2024 19:42:01 Date Recorded Heart rate Systolic blood pressure Diastolic blood pressure Provider Name and Address Organization Details Last Updated DateTime 09/10/2024 72 /min 139 mm[Hg] 89 mm[Hg] Not Available [facility] 09/10/2024 20:58:05 Date Recorded Heart rate Systolic blood pressure Diastolic blood pressure Provider Name and Address Organization Details Last Updated DateTime 09/11/2024 58 /min 112 mm[Hg] 65 mm[Hg] Not Available [facility] 09/11/2024 23:25:01 Date Recorded Heart rate Systolic blood pressure Diastolic blood pressure Provider Name and Address Organization Details Last Updated DateTime 09/12/2024 66 /min 124 mm[Hg] 67 mm[Hg] Not Available [facility] 09/12/2024 22:01:03 Date Recorded Heart rate Systolic blood pressure Diastolic blood pressure Provider Name and Address Organization Details Last Updated DateTime 09/13/2024 55 /min 124 mm[Hg] 75 mm[Hg] [facility] 23:00:04 Date Recorded Heart rate Heart rate Systolic blood pressure Diastolic blood pressure Systolic blood pressure Diastolic blood pressure Provider Name and Address Organization Details Last Updated DateTime 73 /min 80 /min 174 mm[Hg] 157 mm[Hg] 124 mm[Hg] 65 mm[Hg] Not Available [facility] 02/13/202 5 20:34:03 Date Recorded Heart rate Systolic blood pressure Diastolic blood pressure Provider Name and Address Organization Details Last Updated DateTime 09/15/2024 68 /min 113 mm[Hg] 58 mm[Hg] Not Available [facility] 09/15/2024 21:55:05 Date Recorded Heart rate Systolic blood pressure Diastolic blood pressure Provider Name and Address Organization Details Last Updated DateTime 09/16/2024 74 /min 137 mm[Hg] 74 mm[Hg] Not Available [facility] 09/16/2024 23:49:01 Date Recorded Heart rate Systolic blood pressure Diastolic blood pressure Provider Name and Address Organization Details Last Updated DateTime 09/18/2024 88 /min 122 mm[Hg] 89 mm[Hg] Not Available [facility] 09/18/2024 20:58:03 Date Recorded Heart rate Systolic blood pressure Diastolic blood pressure Provider Name and Address Organization Details Last Updated DateTime 09/19/2024 83 /min 116 mm[Hg] 58 mm[Hg] Not Available [facility] 09/19/2024 21:28:01 Date Recorded Heart rate Systolic blood pressure Diastolic blood pressure Provider Name and Address Organization Details Last Updated DateTime 09/20/2024 78 /min 109 mm[Hg] 68 mm[Hg] Not Available [facility] 09/20/2024 21:46:01 Date Recorded Heart rate Systolic blood pressure Diastolic blood pressure Provider Name and Address Organization Details Last Updated DateTime 09/21/2024 76 /min 139 mm[Hg] 95 mm[Hg] Not Available [facility] 09/21/2024 22:36:01 Date Recorded Heart rate Systolic blood pressure Diastolic blood pressure Provider Name and Address Organization Details Last Updated DateTime 09/22/2024 71 /min 126 mm[Hg] 88 mm[Hg] Not Available [facility] 09/22/2024 22:41:04 Date Recorded Heart rate Systolic blood pressure Diastolic blood pressure Provider Name and Address Organization Details Last Updated DateTime 09/23/2024 87 /min 146 mm[Hg] 85 mm[Hg] Not Available [facility] 09/23/2024 22:37:06 Date Recorded Heart rate Systolic blood pressure Diastolic blood pressure Provider Name and Address Organization Details Last Updated DateTime 09/26/2024 80 /min 114 mm[Hg] 64 mm[Hg] Not Available [facility] 09/26/2024 21:57:03 Date Recorded Heart rate Systolic blood pressure Diastolic blood pressure Provider Name and Address Organization Details Last Updated DateTime 09/28/2024 69 /min 120 mm[Hg] 69 mm[Hg] Not Available [facility] 09/28/2024 21:19:02 Date Recorded Heart rate Systolic blood pressure Diastolic blood pressure Provider Name and Address Organization Details Last Updated DateTime 09/29/2024 88 /min 127 mm[Hg] 73 mm[Hg] Not Available [facility] 09/29/2024 21:25:04 Date Recorded Heart rate Systolic blood pressure Diastolic blood pressure Provider Name and Address Organization Details Last Updated DateTime 10/02/2024 86 /min 148 mm[Hg] 76 mm[Hg] Not Available [facility] 10/02/2024 00:59:06 Date Recorded Heart rate Heart rate Systolic blood pressure Diastolic blood pressure Systolic blood pressure Diastolic blood pressure Provider Name and Address Organization Details Last Updated DateTime 87 /min 86 /min 147 mm[Hg] 74 mm[Hg] 133 mm[Hg] 86 mm[Hg] Not Available [facility] 22:33:05 Date Recorded Heart rate Systolic blood pressure Diastolic blood pressure Provider Name and Address Organization Details Last Updated DateTime 10/05/2024 86 /min 145 mm[Hg] 92 mm[Hg] Not Available [facility] 10/05/2024 21:29:01 Date Recorded Heart rate Heart rate Systolic blood pressure Diastolic blood pressure Systolic blood pressure Diastolic blood pressure Provider Name and Address Organization Details Last Updated DateTime 41 /min 81 /min 135 mm[Hg] 76 mm[Hg] 126 mm[Hg] 70 mm[Hg] Not Available [facility] 21:39:03 Date Recorded Heart rate Systolic blood pressure Diastolic blood pressure Provider Name and Address Organization Details Last Updated DateTime 10/07/2024 73 /min 146 mm[Hg] 68 mm[Hg] Not Available [facility] 10/07/2024 22:19:04 Date Recorded Heart rate Systolic blood pressure Diastolic blood pressure Provider Name and Address Organization Details Last Updated DateTime 10/08/2024 87 /min 139 mm[Hg] 76 mm[Hg] Not Available [facility] 10/08/2024 22:42:07 Date Recorded Heart rate Heart rate Systolic blood pressure Diastolic blood pressure Systolic blood pressure Diastolic blood pressure Provider Name and Address Organization Details Last Updated DateTime 90 /min 80 /min 141 mm[Hg] 66 mm[Hg] 126 mm[Hg] 72 mm[Hg] Not Available [facility] 23:50:01 Date Recorded Body height Body mass index (BMI) Body weight Oxygen saturation Oxygen saturation in Arterial blood by Pulse oximetry Heart rate Systolic blood pressure Diastolic blood pressure Provider Name and Address Organization Details Last Updated DateTime 177.8 cm 25 kg/m2 20051.4 7 g 95 % 95 % 65 /min 112 mm[Hg] 64 mm[Hg] [facility] 14:51:56 Date Recorded Heart rate Systolic blood pressure Diastolic blood pressure Provider Name and Address Organization Details Last Updated DateTime 10/12/2024 78 /min 126 mm[Hg] 72 mm[Hg] Not Available [facility] 10/12/2024 00:13:36 Date Recorded Heart rate Heart rate Systolic blood pressure Diastolic blood pressure Systolic blood pressure Diastolic blood pressure Provider Name and Address Organization Details Last Updated DateTime 84 /min 72 /min 123 mm[Hg] 75 mm[Hg] 101 mm[Hg] 55 mm[Hg] Not Available [facility] 22:31:34 Date Recorded Heart rate Systolic blood pressure Diastolic blood pressure Provider Name and Address Organization Details Last Updated DateTime 10/14/2024 66 /min 130 mm[Hg] 69 mm[Hg] Not Available [facility] 10/14/2024 23:24:37 Date Recorded Heart rate Systolic blood pressure Diastolic blood pressure Provider Name and Address Organization Details Last Updated DateTime 10/15/2024 76 /min 132 mm[Hg] 79 mm[Hg] Not Available [facility] 10/15/2024 21:45:38 Date Recorded Heart rate Systolic blood pressure Diastolic blood pressure Provider Name and Address Organization Details Last Updated DateTime 10/16/2024 71 /min 116 mm[Hg] 62 mm[Hg] Not Available [facility] 10/16/2024 20:59:34 Date Recorded Heart rate Systolic blood pressure Diastolic blood pressure Provider Name and Address Organization Details Last Updated DateTime 10/20/2024 71 /min 118 mm[Hg] 60 mm[Hg] Not Available [facility] 10/20/2024 22:31:35 Date Recorded Heart rate Systolic blood pressure Diastolic blood pressure Provider Name and Address Organization Details Last Updated DateTime 10/18/2024 85 /min 125 mm[Hg] 63 mm[Hg] Not Available [facility] 10/20/2024 22:31:37 Date Recorded Heart rate Systolic blood pressure Diastolic blood pressure Provider Name and Address Organization Details Last Updated DateTime 10/21/2024 81 /min 141 mm[Hg] 79 mm[Hg] Not Available [facility] 10/21/2024 23:33:35 Date Recorded Heart rate Systolic blood pressure Diastolic blood pressure Provider Name and Address Organization Details Last Updated DateTime 10/23/2024 56 /min 118 mm[Hg] 60 mm[Hg] Not Available [facility] 10/23/2024 16:49:38 Date Recorded Heart rate Systolic blood pressure Diastolic blood pressure Provider Name and Address Organization Details Last Updated DateTime 10/24/2024 74 /min 99 mm[Hg] 53 mm[Hg] Not Available [facility] 10/24/2024 21:55:35 Date Recorded Heart rate Systolic blood pressure Diastolic blood pressure Provider Name and Address Organization Details Last Updated DateTime 10/25/2024 58 /min 123 mm[Hg] 60 mm[Hg] Not Available [facility] 10/25/2024 22:08:37 Date Recorded Heart rate Systolic blood pressure Diastolic blood pressure Provider Name and Address Organization Details Last Updated DateTime 10/26/2024 66 /min 129 mm[Hg] 70 mm[Hg] Not Available [facility] 10/26/2024 23:31:34 Date Recorded Heart rate Systolic blood pressure Diastolic blood pressure Provider Name and Address Organization Details Last Updated DateTime 10/27/2024 53 /min 143 mm[Hg] 75 mm[Hg] Not Available [facility] 10/27/2024 22:35:35 Date Recorded Heart rate Heart rate Systolic blood pressure Diastolic blood pressure Systolic blood pressure Diastolic blood pressure Provider Name and Address Organization Details Last Updated DateTime 64 /min 82 /min 133 mm[Hg] 69 mm[Hg] 124 mm[Hg] 69 mm[Hg] Not Available [facility] 21:08:36 Date Recorded Heart rate Systolic blood pressure Diastolic blood pressure Provider Name and Address Organization Details Last Updated DateTime 10/30/2024 76 /min 116 mm[Hg] 54 mm[Hg] Not Available [facility] 10/30/2024 22:18:36 Date Recorded Heart rate Systolic blood pressure Diastolic blood pressure Provider Name and Address Organization Details Last Updated DateTime 10/31/2024 59 /min 104 mm[Hg] 50 mm[Hg] Not Available [facility] 10/31/2024 22:05:34 Date Recorded Heart rate Systolic blood pressure Diastolic blood pressure Provider Name and Address Organization Details Last Updated DateTime 11/01/2024 48 /min 130 mm[Hg] 84 mm[Hg] Not Available [facility] 11/01/2024 22:56:35 Date Recorded Heart rate Systolic blood pressure Diastolic blood pressure Provider Name and Address Organization Details Last Updated DateTime 11/02/2024 68 /min 124 mm[Hg] 58 mm[Hg] Not Available [facility] 11/02/2024 22:05:39 Date Recorded Heart rate Systolic blood pressure Diastolic blood pressure Provider Name and Address Organization Details Last Updated DateTime 11/03/2024 82 /min 131 mm[Hg] 67 mm[Hg] Not Available [facility] 11/03/2024 22:20:34 Date Recorded Heart rate Heart rate Systolic blood pressure Diastolic blood pressure Systolic blood pressure Diastolic blood pressure Provider Name and Address Organization Details Last Updated DateTime 91 /min 56 /min 141 mm[Hg] 72 mm[Hg] 117 mm[Hg] 61 mm[Hg] Not Available [facility] 21:30:35 Date Recorded Heart rate Systolic blood pressure Diastolic blood pressure Provider Name and Address Organization Details Last Updated DateTime 11/06/2024 77 /min 131 mm[Hg] 79 mm[Hg] Not Available [facility] 11/06/2024 23:52:36 Date Recorded Heart rate Systolic blood pressure Diastolic blood pressure Provider Name and Address Organization Details Last Updated DateTime 11/07/2024 69 /min 99 mm[Hg] 52 mm[Hg] Not Available [facility] 11/07/2024 17:42:37 Date Recorded Heart rate Systolic blood pressure Diastolic blood pressure Provider Name and Address Organization Details Last Updated DateTime 11/08/2024 68 /min 116 mm[Hg] 59 mm[Hg] Not Available [facility] 11/08/2024 22:44:38 Date Recorded Heart rate Systolic blood pressure Diastolic blood pressure Provider Name and Address Organization Details Last Updated DateTime 11/09/2024 78 /min 108 mm[Hg] 64 mm[Hg] Not Available [facility] 11/09/2024 23:23:36 Date Recorded Heart rate Systolic blood pressure Diastolic blood pressure Provider Name and Address Organization Details Last Updated DateTime 11/10/2024 73 /min 119 mm[Hg] 69 mm[Hg] Not Available [facility] 11/10/2024 23:14:37 Date Recorded Heart rate Systolic blood pressure Diastolic blood pressure Provider Name and Address Organization Details Last Updated DateTime 11/11/2024 70 /min 111 mm[Hg] 59 mm[Hg] Not Available [facility] 11/11/2024 22:41:36 Date Recorded Heart rate Systolic blood pressure Diastolic blood pressure Provider Name and Address Organization Details Last Updated DateTime 11/12/2024 88 /min 140 mm[Hg] 66 mm[Hg] Not Available [facility] 11/12/2024 22:57:34 Date Recorded Heart rate Systolic blood pressure Diastolic blood pressure Provider Name and Address Organization Details Last Updated DateTime 11/13/2024 72 /min 118 mm[Hg] 63 mm[Hg] Not Available [facility] 11/13/2024 22:02:35 Date Recorded Heart rate Systolic blood pressure Diastolic blood pressure Provider Name and Address Organization Details Last Updated DateTime 11/14/2024 59 /min 119 mm[Hg] 72 mm[Hg] Not Available [facility] 11/14/2024 22:47:34 Date Recorded Body height Body mass index (BMI) Body weight Oxygen saturation Oxygen saturation in Arterial blood by Pulse oximetry Heart rate Systolic blood pressure Diastolic blood pressure Provider Name and Address Organization Details Last Updated DateTime 177.8 cm 25 kg/m2 41025.0 7 g 95 % 95 % 66 /min 104 mm[Hg] 68 mm[Hg] Mahi Ronnellmorris olga lidia MD - [facility] 14:44:19 Date Recorded Heart rate Systolic blood pressure Diastolic blood pressure Provider Name and Address Organization Details Last Updated DateTime 11/15/2024 68 /min 121 mm[Hg] 58 mm[Hg] Not Available [facility] 11/15/2024 19:39:34 Date Recorded Heart rate Systolic blood pressure Diastolic blood pressure Provider Name and Address Organization Details Last Updated DateTime 11/16/2024 62 /min 127 mm[Hg] 91 mm[Hg] Not Available [facility] 11/16/2024 23:21:36 Date Recorded Heart rate Systolic blood pressure Diastolic blood pressure Provider Name and Address Organization Details Last Updated DateTime 11/18/2024 76 /min 149 mm[Hg] 84 mm[Hg] Not Available [facility] 11/18/2024 23:49:34 Date Recorded Heart rate Systolic blood pressure Diastolic blood pressure Provider Name and Address Organization Details Last Updated DateTime 11/20/2024 45 /min 122 mm[Hg] 79 mm[Hg] Not Available [facility] 11/20/2024 00:03:38 Date Recorded Heart rate Heart rate Systolic blood pressure Diastolic blood pressure Systolic blood pressure Diastolic blood pressure Provider Name and Address Organization Details Last Updated DateTime 62 /min 49 /min 117 mm[Hg] 61 mm[Hg] 126 mm[Hg] 69 mm[Hg] Not Available [facility] 23:13:36 Date Recorded Heart rate Heart rate Systolic blood pressure Diastolic blood pressure Systolic blood pressure Diastolic blood pressure Provider Name and Address Organization Details Last Updated DateTime 75 /min 84 /min 139 mm[Hg] 69 mm[Hg] 131 mm[Hg] 62 mm[Hg] Not Available [facility] 23:05:35 Date Recorded Heart rate Systolic blood pressure Diastolic blood pressure Provider Name and Address Organization Details Last Updated DateTime 11/24/2024 71 /min 125 mm[Hg] 68 mm[Hg] Not Available [facility] 11/24/2024 21:02:35 Date Recorded Heart rate Heart rate Systolic blood pressure Diastolic blood pressure Systolic blood pressure Diastolic blood pressure Provider Name and Address Organization Details Last Updated DateTime 76 /min 82 /min 129 mm[Hg] 67 mm[Hg] 135 mm[Hg] 60 mm[Hg] Not Available [facility] 21:55:38 Date Recorded Heart rate Systolic blood pressure Diastolic blood pressure Provider Name and Address Organization Details Last Updated DateTime 11/27/2024 75 /min 139 mm[Hg] 78 mm[Hg] Not Available [facility] 11/27/2024 23:12:34 Date Recorded Heart rate Systolic blood pressure Diastolic blood pressure Provider Name and Address Organization Details Last Updated DateTime 11/28/2024 75 /min 117 mm[Hg] 56 mm[Hg] Not Available [facility] 11/28/2024 21:08:38 Date Recorded Heart rate Systolic blood pressure Diastolic blood pressure Provider Name and Address Organization Details Last Updated DateTime 11/29/2024 67 /min 113 mm[Hg] 60 mm[Hg] [facility] 20:26:34 Date Recorded Heart rate Systolic blood pressure Diastolic blood pressure Provider Name and Address Organization Details Last Updated DateTime 11/30/2024 67 /min 99 mm[Hg] 54 mm[Hg] Not Available [facility] 11/30/[facility]24 22:18:34 Date Recorded Heart rate Systolic blood pressure Diastolic blood pressure Provider Name and Address Organization Details Last Updated DateTime 12/01/2024 50 /min 125 mm[Hg] 74 mm[Hg] Not Available [facility] 12/01/2024 23:12:36 Date Recorded Heart rate Systolic blood pressure Diastolic blood pressure Provider Name and Address Organization Details Last Updated DateTime 12/02/2024 51 /min 137 mm[Hg] 77 mm[Hg] Not Available [facility] 12/02/2024 22:42:36 Date Recorded Heart rate Systolic blood pressure Diastolic blood pressure Provider Name and Address Organization Details Last Updated DateTime 12/03/2024 58 /min 112 mm[Hg] 64 mm[Hg] Not Available [facility] 12/03/[facility]24 21:24:38 Date Recorded Heart rate Systolic blood pressure Diastolic blood pressure Provider Name and Address Organization Details Last Updated DateTime 12/04/2024 73 /min 134 mm[Hg] 73 mm[Hg] Not Available [facility] 12/04/2024 23:56:37 Date Recorded Heart rate Systolic blood pressure Diastolic blood pressure Provider Name and Address Organization Details Last Updated DateTime 12/05/2024 79 /min 118 mm[Hg] 66 mm[Hg] Not Available [facility] 12/05/2024 23:17:38 Social History Question Answer Notes LastModified by Organizat ion Details LastModified Time Tobacco Smoking Status Former Smoker Lupe Petrowicz null, MD - [facility] 04/28/2022 13:23:37 Do You Have An Advance Directive? Yes Information not available 04/28/2022 What Is Your Level Of Alcohol Consumption? Occasional Information not available 04/28/2022 Are You Currently Employed? No Information not available 04/28/2022 Do You Or Have You Ever Used Smokeless Tobacco? Never Used Smokeless Tobacco Information not available 04/28/2022 How Much Tobacco Do You Smoke? 1 PPD Information not available 04/28/2022 Do You Use Any Illicit Or Recreational Drugs? No Information not available 04/28/2022 Sex: Unknown Functional Status None recorded. Mental Status None recorded. Family History Relationship Description Onset Age of this Age Resolved Age Notes LastModified by Organization Details LastModified Time Brother Malignant tumor of colon [email or web address] Not available 2021 11:42:47 Father Carcinoma of prostate [email or web address] Not available 2021 11:42:58 Notes:maternal grandmother-u nknown cancer Medical History Condition Response Coronary Artery Disease Y Depression Y Hypothyroidism Y Muscle, Joint, or Bone Problems Y Vision or Eye Problems Y Arthritis Y Polyps Y High Cholesterol Y GI Problems Y Immunizations Vaccine Type Date Status Note Provider Nam e and Address Organization Details Recorded Time COVID-19, mRNA, LNP-S, PF, 100 mcg/0.5mL dose or 50 mcg/0.25mL dose 11/08/2020 completed Lupe Homerowicz null, [place] [facility] 04/28/2022 13:24:02 COVID-19, mRNA, LNP-S, PF, 30 mcg/0.3 mL dose 12/02/2020 completed Lupe Petrowicz null, [place] [facility] 04/28/2022 13:24:02 COVID-19, mRNA, LNP-S, PF, 30 mcg/0.3 mL dose 11/08/2020 completed Lupe Petrowicz null, [place] - [facility] 04/28/2022 13:24:02 Influenza, MDCK, quadrivalent, PF 05/14/2019 completed Lupe Petrowicz null, [place] - [facility] 04/28/2022 13:24:02 COVID-19, mRNA, LNP-S, PF, 30 mcg/0.3 mL dose, maureen-sucrose 12/11/2021 completed Lupe Ny null, [place] [facility] 04/28/2022 13:24:02 zoster recombinant 12/11/2021 completed Lupe Ny null, [place] [facility] 04/28/2022 13:24:02 Tdap 08/27/2017 completed Chantel Leigh NP [address] [place] [address] [address], [place], [address], [place] [facility] 04/28/2022 13:57:55 Past Encounters Encounter ID Performer Location Encounter Start Date Encounter Closed Date Diagnosis/Indication Diagnosis SNOMED-CT Code Diagnosis ICD10 Code Diagnosis Note [id number] Chantel Liegh NP Main Office [address] [facility] 220 [facility] [place] [address] 04/28/2022 13:05:05 04/28/2022 14:25:17 Ex-smoker 3697255 Z87.891 Need to evaluate for COPD and Lung CA, will check PFTs and LDCT lung CA screening. Follow up afterwards . Coronary arteriosclerosis 08355591 I25.[address] Jean every 6 months. Hypothyroidism 50385665 E03.9 Overdue for labs. Memory impairment 488854 006 R41.3 Unclear cause, rule out hypoxia vs seizure vs altered mental status related to substances . Follow up after PFTs. May need neuro vs neuropsych . Hand pain 95247317 M79.6 43 Bilateral hand pain with contractur es. Will refer to hand surgeon. [id number] Chantel Leigh NP Main Office [address] [place] [address] 220 [facility] [place] [address] 05/26/2022 11:18:22 05/26/2022 12:00:47 Ex-smoker 3727284 Z87.891 Will re-order LDCT as he confirms he quit smoking in 2012 and has a 45 pack year history. Hypothyroidism 36791740 E03.9 Needs dose increase. Will increase to 125mcg and repeat labs in 3 months. Polyarthropathy 89483867 M13.0 Concern for RA given very high rheumatoid factor at 193.4, ordered by his previous provider (09/2021). He has an appointmen t with [facility] on 07/02. Will fax this note to them for context.He is on chronic opiates, contract signed today for auto refill. If he does get an RA diagnosis and appropriat e treatment hopefully we can start to wean him off of narcotics. Amnesia 56427680 R41.3 Will check EEG and then if normal will likely need neuropsych eval. [id number] Chantel Leigh NP Main Office [address] [place] [address] [address] [place] [address] 09/17/2022 13:32:07 09/17/2022 14:14:07 Constipation 84891319 K59.00 Will trial lactulose. If constipati on persists we may need to use linzess vs GI consult. Blepharitis 14407783 H01 .9 Warm compresses . Follow up PRN. Hypothyroidism 94404356 E03.9 Reminded to have labs repeated to ensure not playing a role in constipati on. Polyarthropathy 67226603 M13.0 Concern for RA given very high rheumatoid factor at 193.4, ordered by his previous provider (09/2021). Missed his appointmen t with [facility] and has been unable to get another. Will fax this note to them for context.He is on chronic opiates. If he does get an RA diagnosis and appropriat e treatment hopefully we can start to wean him off of narcotics. Bursitis o f olecranon of left elbow 7163129695 79680 M70.22 Discussed compressio n of the area and risk vs benefit of drainage but decided not to drain. [id number] Chantel Leigh NP Main Office [address] [place] [address] [address] [place] [address] 01/20/2023 13:42:00 01/20/2023 14:11:29 Polyarthropathy 48802037 M13.0 He has been seen by Maira lindsay but no clear follow up plan. He is going to call them to figure out what his next steps are. He will follow up here in 7months. Nonspecifi c tuberculin test reaction 209366689 R76.12 Has ID consult next month. Coronary arteriosclerosis 25707946 I25.[address] Jean every 6 months. [id number] Camila Meneses NP Main Office [address] [place] [address],[facility] [address] [place] [address] 02/04/2023 09:34:29 02/04/2023 10:17:06 Constipation 07887650 K59.00 Requests refill. Pain of ri ght hip joint 3721026458 57760 M25.551 Likely some OA, check xray and refer to ortho for more definitive treatment. Will add celebrex BID, and recommend follow up with his PCP in 2-3 weeks to assess response. Pain in right hand 97718 10881 38911 M79.641 Refer to hand surgeon. Pt [facility], will request records. [id number] Chantel Leigh NP Main Office [address] [facility] [place] [place] [address] 03/04/2023 13:27:48 03/04/2023 15:34:55 Rheumatoid arthritis 92467186 M06.9 Will request records from [facility]. Follow up with them in April as planned. Breast lump 70501694 N63 .0 Reassured no abnormalit ies palpated. Osteoarthritis 483711806 M19.90 I will continue his current course of treatment with his opiate and celebrex regimen. [id number] FABIÁN CORREA PA-C Main Office [address] [facility] [facility] [place],[address] [place] [address] 05/28/2023 13:50:19 05/28/2023 15:41:16 Fatigue 33061415 R53.83 Reports day time sleepiness . May be attributed to history of NICOLE or hypothyroi dism; also reports tick removed 2 years prior not requiring abx. Will run labs as below. Bradycardia 81228573 R00 .1 [facility] results reviewed. Few episodes of bradycardi a. On avg, BP is normotensi ve. Denies loss of consciousn ess, dizziness, dyspnea, headaches, vision changes. Recommende d increased water intake; currently patient rarely drinks water. Hypothyroidism 46871639 E03.9 Maintains on Levothyrox ine 125mcg daily. Previous TSH/free t4 reviewed from Sep 2022, WNL at paul time [id number] Chantel Leigh NP Main Office [address] [facility] [place] [facility] [place],[address] [place] [address] 08/10/2023 12:49:04 08/10/2023 14:01:14 Diplopia 73998410 H53.2 He will let MARIA G know about the double vision so he can have a repeat carotid artery US. He will also call Dr. Kelly. Will check head CT now. Rheumatoid arthritis 698 08652 M06.9 Will request records from [facility]. Follow up with them is in 2 weeks. Chronic ob structive pulmonary disease 33444805 J44.9 Will start maintenanc e inhaler. Follow up in 1 month. Abrasion 031378140 T14.8 XXA No signs of infection, moisturize skin. Follow up PRN [id number] Chantel Leigh NP Main Office [address] [facility] [place],[address] [place] [address] 01/05/2024 15:07:21 01/05/2024 15:35:10 Chronic back pain 370361454 G89.29 Discussed increasing the celebrex to 200mg BID and adding 100mg gabapentin TID PRN and follow up as needed. Constipation 88037952 K5 9.00 Will stop iron as he was not anemic on last labs and to start daily miralax. Follow up if no improvemen t. Hyperlipidemia 38725379 E78.5 Will check labs. Hypothyroidism 24812339 E03.9 Reminded to have labs repeated to ensure not playing a role in constipati on. [id number] Chantel Leigh NP Main Office [address] [facility] [place] [place] [address] 02/08/2024 14:29:45 02/08/2024 14:57:33 Chronic obstructive pulmonary disease 42017611 J44.9 Encouraged compliance with trelegy and to ensure that LDCT is on the books. Moderate pain 10086315 R 52 Will refer to pain clinic for chronic back and hip pain. Rheumatoid arthritis 698 65873 M06.9 [facility] follows. Macrocytosis 172125031 D 75.89 Will check with next labs. [id number] Chantel Leigh NP Main Office [address] [facility] [place],[address] [place] [address] 04/06/2024 13:07:00 04/06/2024 14:21:23 Acute COVID-19 4581701208 U07.1 Resolved. Pneumonia 788297714 J18. 9 Will cover with steroids, stop celebrex while on steroids. Follow up if no improvemen t. Nodule of lung 911116511 R91.1 Will follow up with his LDCT lung cancer screening that is due, they are aware they need to schedule this. [id number] Chantel Leigh NP Main Office [address] [place] [address] [address] [place] [address] 05/11/2024 13:23:44 05/11/2024 13:52:04 Chronic back pain 219388045 G89.29 Would like to try some interventi onal pain management now. He has had good response to hip and knee injections in the past so he is hopeful this will be helpful. [id number] Chantel Leigh NP Main Office [address] [place] [address] 220 [facility] [place] [address] 08/03/2024 14:23:57 08/03/2024 15:34:59 Rheumatoid arthritis 78771368 M06.9 [facility] follows but he needs follow up as his methotrexa te is not adequately keeping his symptoms controlled . He has had injections in his hand with the hand surgeon in the past, will refer again for that. Pain management suggested switching his opiate from vicodin to oxycodone, will do that today. 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 Patel. Coronary arteriosclerosis 79654570 I25.[address] Jean every 6 months. [id number] Bassam Payne DO Main Office [address] [place] [address] [address] [place] [address] 10/02/2024 11:29:17 10/02/2024 12:14:50 Chronic back pain 822623934 M54.9 [id number] Chantel Leigh NP Main Office [address] [place] [address] 220 [facility] [address] 10/10/2024 14:37:58 10/10/2024 15:43:39 Anemia 556662351 D64.9 History of anemia and worsening fatigue and subjective pallor. Will check labs. Fatigue 40027074 R53.83 Will check labs. Hypothyroidism 21080797 E03.9 Will check labs. Rheumatoid arthritis 698 81718 M06.9 [facility] lost their provider so he is now with the [facility]. He has follow up in November. Oxycodone is more effective, continue this regimen. Pain of left heel 535074 6315 857173 M79.672 Discussed arch suppot, rolling on ice. Follow up PRN. Unable to cut own toenails 711849726 Z74.1 Given info for foot care by nurses. [id number] Chantel Leigh NP Main Office [address] [place] [address],[address] [place] [address] 11/15/2024 14:33:08 11/15/2024 15:40:44 Acute exacerbation of chronic obstructive pulmonary disease 565535254 J44.1 Will treat with prednisone but stop celebrex while on steroids. Left Achil les tendinitis 5174364216 10549 M76.62 Will image given the degree of bruising and refer to sports medicine. Pain in testicle 1565862 9 N50.819 Refer to urology Health Concerns Section Related Observation LastModified by Organization Detai ls LastModified Time None Recorded Concern Status LastModified by Organization Details LastModified Time None Recorded Advance Directives Directive Y: Payers Encounter Date Sequence Insurance Name Policy Number Policy Echols Covered Member ID Echols Member ID Guarantor Name 05/11/2024 1 [facility] [employer] - DOS ON OR AFTER 2022 - ONE CARE (MEDICARE REPLACEMENT/ADV ANTAGE - HMO) Elder Moreno [id number] Elder Moreno 08/03/2024 1 [facility] [employer] - DOS ON OR AFTER 2022 - ONE CARE (MEDICARE REPLACEMENT/ADV ANTAGE - HMO) Elder Moreno [id number] Elder Moreno 10/02/2024 1 [facility] [employer] - DOS ON OR AFTER 2022 - ONE CARE (MEDICARE REPLACEMENT/ADV ANTAGE - HMO) Elder Moreno [id number] Elder Moreno 10/10/2024 1 [facility] [employer] - DOS ON OR AFTER 2022 - ONE CARE (MEDICARE REPLACEMENT/ADV ANTAGE - HMO) Elder Moreno [id number] Elder Moreno 11/15/2024 1 [facility] [employer] - DOS ON OR AFTER 2022 - ONE CARE (MEDICARE REPLACEMENT/ADV ANTAGE - HMO) Elder Moreno [id number] Elder Moreno Notes Date Note Type Note Provider Name and Address Organization Details Recorded Time 05/11/2024 text/html Would like to be referred to the [facility] for chronic back and hip pain. He is on chronic vicodin for the past 3 years. He is now feeling that the medication isn't working as well as it used to and would like to try something interventional. He has difficulty climbing stairs and walking. Chantel Leigh NP [address], [address], [place] [facility] 05/11/2024 13:48:55 08/03/2024 text/html He is here for routine follow up.1. His stunt person held his methotrexate for 2 weeks due to some lab abnormalities. He is now back on it for the past 3 months and the pain has not improved. He has a follow up with rheumatology.He would like to go back to see Dr. Felipe for hand injections.2. He saw pain management and they recommended we rotate his opiate as he has been on vicodin for many years.3. Followed by Dr. Bazzi, last seen last month. No med changes.4. He is still followed by Dr. Patel for his BiPaP. Chantel Leigh NP [address] [address], [place], [address], [place] [facility] 08/04/2024 08:49:42 10/02/2024 text/html discuss med Bassam Payne, [address] [place] [address], [phone], [place] [facility] 10/03/2024 11:09:41 10/10/2024 text/html Here for follow up after switching his vicodin to oxycodone. He reports that this is working well and seems to be much better than before, when he was on the vicodin. He does get occasional constipation but he uses OTC meds. He sees the hand surgeon tomorrow to discuss hand injections. He has seen rheumatology, Dr. Ramirez at the [facility]. Next appointment is 12/01/24. He had an initial visit with them and they were going to change his regimen to include hydroxychloroquine but he read side effects and was leary so he did not start this. He reports left heel pain that is consistent throughout the day. He states it hurts to rest his heel on the bed and then it pulls through the bottom of his foot. He asks about nail care for his toenails. Reports he is exhausted after routine tasks. His reports that he is very pale when he returns from walking the dog. He is winded after coming up the stairs. Chantel Leigh NP [address] [facility] [address], [place], [address], [facility] 10/10/2024 20:10:31 11/15/2024 text/html Here in follow u p after having labs. Labs show mild anemia but he is now on an iron supplement.He has been having achilles pain for the past 2 months, worse in the past 2 days, no known injury. The pain has worsened in the past 3-4 days with discoloration worse in the past 2 days. When he coughs he has an area in the left hip that is very painful. It is somewhat painful to the touch also. He reports frequent chest congestion and he has to use robitussin daily. He has gone through 7-8 bottles. He has tender testicles. He has also noticed an odor to his semen also. He had epididymitis years ago and he still has pain to the testicles. Chantel Leigh NP [address] [facility] [address], [place], [address], [facility] 11/15/2024 15:47:45
--- OUTSIDE RECORDS SUMMARY | 2024-12-06 13:37 | XMS_ITS | Data Portability ---
Author Organization [facility] Address [address] [place] [id number] Assessment Encounter Date Assessment Date Assessment LastModified by Organization Details LastModified Time 01/14/2022 01/14/2022 S: here for med refills. gabapentin was refilled yesterday by Courtney Santana. Prednisone also filled yesterday. He is trying to get a railing and a bed that will help with his RA programme. He is getting a [facility] longterm programme. O: non-pitting eadema of bilat lower legs with no current breaks in skin. pleasant co-operative, appropriately attired. Speaks in full sentences with no SOB. Gait is non-laboured nor favouring either side. 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 He reports a stretching pain right knee with movement. He also has the pain in left thumb as well. He saw Dr. Geller in [place]. P: He is on levothyroxine 112 mcg tabs for hypothyroidism D/C prednisone F/U with previous Dr. Mustafa for OA F/U Many of your medications conflict with anti-inflammatori es. F/U as indicated. [email or web address] Not available 02/11/2022 14:55:49 02/25/2022 02/25/2022 S: is concerned about pain issues in right sometimes left hip. Position does not seem to alter perception. Reports pain 7/10 sharp. Describes it as a spike going in to the pelvis He says he has tried ALL of the NSAIDS with no relief. Denies that he has osteoarthritis. O: non-pitting eadema of bilat lower legs with no current breaks in skin. pleasant co-operative, appropriately attired. Speaks in full sentences with no SOB. Gait is favouring left side with Rt. hip pain A: /P: chronic pain syndrome. He is willing to try hydrocodone again and siad it worked well. Take LOWEST amount to keep severe pain away and manage moderate pain Tylenol as directed. begin hydrocodone 10 Acet 325 Do not take within three hrs of buproprion or statin. Do not take with Tylenol. No more than Tylenonol 650mg q 4-6 hrs [email or web address] Not available 02/25/2022 11:55:23 03/11/2022 03/11/2022 S: Says pharmacy not fill Hydrocodone for one month but only did one week. He first got his one month prescription refilled recently. His short-term memory has decreased. Says his pain is being managed well O: pleasant and makes good eye contact. WNWD Speaks in full sentences with no SOB. Gait is good and equal L to R A/P Short-term memory- referral to neurology med reconcile. osteoarthritis [email or web address] Not available 03/11/2022 13:52:41 04/08/2022 04/08/2022 S: 67 yo pt to clinic for med refills. update re recent ER visit for sebaceous cyst. Surgical consult recommended. Needs refills for Vicoden O: General: Normotensive, sitting on chair and in no acute distress. HEENT: Normal appearance. Chest: LS CTAB, no rales, no rhonchi, no wheezes, all not noted. No cough noted Heart: RRR, S1, S2, no murmurs, no rubs, no gallops, all not noted. Skin: Mid upper back has 3 cm lanced sebaceous cyst covered with gauze and tape. scant serous exudate, area red, warm. , no spreading Psych: A&O x 3, pleasant and cooperative with the exam. Appropriately dressed, interacts appropriately, making good eye contact A/P Cyst- currently on bactrim for infection, rx at ER. Schedule fu with [facility] for cyst [facility]. MEd refills - request to for Vicoden refill. RTC for procedure. Not available 04/08/2022 13:05:58 Plan of Treatment Reminders Order Date Submit Date Provider Last Modified By Organization Details Last Modified Time Details Appointments None recorded. Lab None recorded. Referral neurologist referral 2021 josie Mejia MD, [address] [place] [address], [id number], 13:13:24 Procedures None recorded. Surgeries None recorded. Imaging None recorded. Medication Orders hydrocodone 10 mg-acetamin ophen 325 mg tablet 2021 [id number], [address], [place], [address], 11:55:58 Patient TargetsNo targets recorded. Patient Instructions Encounter Date Encounter Id Patient Instructions Last Modified By Organization Details Last Modified Time 01/14/2022 [id number] Rheumatoid Arthritis (RA): Care Instructions [email or web address] Not available 01/14/2022 15:59:37 02/25/2022 [id number] knee arthritis: care instructions Not available 02/25/2022 11:55:55 arthritis: care instructions [email or web address] Not available 02/25/2022 11:55:55 osteoarthritis: care instructions [email or web address] Not available 02/25/2022 11:55:55 04/08/2022 [id number] arthritis: care instructions Not available 04/08/2022 13:07:15 osteoarthritis: care instructions Not available 04/08/2022 13:07:15 back care and preventing injuries: care instructions Not available 04/08/2022 13:07:15 getting back to normal after low back pain: care instructions Not available 04/08/2022 13:07:16 learning about relief for back pain Not available 04/08/2022 13:07:15 Reason for Referral Neurologist Referral for Poo r short-term memory Referring Physician: Sangeeta Vickers, Family Medicine, Encounter Date: 03/11/2022 Results Created Date Observation Date Name Description Value Unit Range Abnormal Flag Note LastModifiedBy Organization Detail LastModifiedTime 04/08/20 22 04/11/2022 DRUG TOX MONIT ORING ALCOH OL ETHYL , SCRN, U alcohol, ethyl NEGATI VE mg/dL <20 normal Not Available [facility] [place] [facility] [address], [place], [address], 04/11/2022 14:03:47 04/08/20 22 04/11/2022 DRUG TOX MONIT ORING ALCOH OL ETHYL , SCRN, U comment See Note 1 Not Available [facility] [place] [facility] [address], [place], [address], 04/11/2022 14:03:47 04/08/20 22 04/11/2022 DRUG TOX MONIT ORING 9 W/CON F, URINE amphetamines NEGATI VE NG/mL <500 normal Not Available [facility] [place] [facility] [address], [place], [address], 04/11/2022 14:03:48 04/08/20 22 04/11/2022 DRUG TOX MONIT ORING 9 W/CON F, URINE barbiturates NEGATI VE NG/mL <300 normal Not Available [facility] [place] [facility] [address], [place], [address], 04/11/2022 14:03:48 04/08/20 22 04/11/2022 DRUG TOX MONIT ORING 9 W/CON F, URINE benzodiazepi lindsay NEGATI VE NG/mL <100 normal Not Available [facility] [place] [facility] [address], [place], [address], 04/11/2022 14:03:48 04/08/20 22 04/11/2022 DRUG TOX MONIT ORING 9 W/CON F, URINE buprenorphin e NEGATI VE CONFIR MED NG/mL <5 normal Not Available [facility] [place] [facility] [address], [place], [address], 04/11/2022 14:03:48 04/08/20 22 04/11/2022 DRUG TOX MONIT ORING 9 W/CON F, URINE buprenorphin e NEGATI VE NG/mL <5 normal See Note 2 Not Available [facility] [address], [place], [address], 04/11/2022 14:03:48 04/08/20 22 04/11/2022 DRUG TOX MONIT ORING 9 W/CON F, URINE norbuprenorp jonathan NEGATI VE NG/mL <5 normal See Note 2 Not Available [facility] [address], [place], [address], 04/11/2022 14:03:48 04/08/20 22 04/11/2022 DRUG TOX MONIT ORING 9 W/CON F, URINE cocaine metabolite NEGATI VE NG/mL <150 normal Not Available [facility] [address], [place], [address], 04/11/2022 14:03:48 04/08/20 22 04/11/2022 DRUG TOX MONIT ORING 9 W/CON F, URINE heroin metabolite NEGATI VE NG/mL <10 normal Not Available [facility] [address], [place], [address], 04/11/2022 14:03:48 04/08/20 22 04/11/2022 DRUG TOX MONIT ORING 9 W/CON F, URINE marijuana metabolite 20 POSITI VE NG/mL <20 abnormal Not Available [facility] [address], [place], [address], 04/11/2022 14:03:48 04/08/20 22 04/11/2022 DRUG TOX MONIT ORING 9 W/CON F, URINE marijuana metabolite 443 NG/mL <5 high See Note 2 Not Available [facility] [address], [place], [address], 04/11/2022 14:03:48 04/08/20 22 04/11/2022 DRUG TOX MONIT ORING 9 W/CON F, URINE MDMA/mda NEGATI VE NG/mL <500 normal Not Available [facility] [place] [facility] [address], [place], [address], 04/11/2022 14:03:48 04/08/20 22 04/11/2022 DRUG TOX MONIT ORING 9 W/CON F, URINE methadone metabolite NEGATI VE NG/mL <100 normal Not Available [facility] [place] [facility] [address], [place], [address], 04/11/2022 14:03:48 04/08/20 22 04/11/2022 DRUG TOX MONIT ORING 9 W/CON F, URINE opiates POSITI VE NG/mL <100 abnormal Not Available [facility] [address], [place], [address], 04/11/2022 14:03:48 04/08/20 22 04/11/2022 DRUG TOX MONIT ORING 9 W/CON F, URINE codeine NEGATI VE NG/mL <50 normal See Note 2 Not Available [facility] [address], [place], [address], 04/11/2022 14:03:48 04/08/20 22 04/11/2022 DRUG TOX MONIT ORING 9 W/CON F, URINE hydrocodone 842 NG/mL <50 high See Note 2 Not Available [facility] [address], [place], [address], 04/11/2022 14:03:48 04/08/20 22 04/11/2022 DRUG TOX MONIT ORING 9 W/CON F, URINE hydromorphon e NEGATI VE NG/mL <50 normal See Note 2 Not Available [facility] [place] [facility] [address], [place], [address], 04/11/2022 14:03:48 04/08/20 22 04/11/2022 DRUG TOX MONIT ORING 9 W/CON F, URINE morphine NEGATI VE NG/mL <50 normal See Note 2 Not Available [facility] [place] [facility] [address], [place], [address], 04/11/2022 14:03:48 04/08/20 22 04/11/2022 DRUG TOX MONIT ORING 9 W/CON F, URINE norhydrocodo ne 501 NG/mL <50 high See Note 2 Not Available [facility] [place] [facility] [address], [place], [address], 04/11/2022 14:03:48 04/08/20 22 04/11/2022 DRUG TOX MONIT ORING 9 W/CON F, URINE oxycodone NEGATI VE NG/mL <100 normal Not Available [facility] [place] [facility] [address], [place], [address], 04/11/2022 14:03:48 04/08/20 22 04/11/2022 DRUG TOX MONIT ORING 9 W/CON F, URINE phencyclidin e NEGATI VE NG/mL <25 normal Not Available [facility] [place] [facility] [address], [place], [address], 04/11/2022 14:03:48 04/08/20 22 04/11/2022 DRUG TOX MONIT ORING 9 W/CON F, URINE comment See Note 3 Note 1 This drug testi ng is for medic al treat ment only. The resul ts are presu mptiv e; based only on rayna sampson, and they have not been confi rmed by a defin itive kathy khan. Chayo sis was perfo rmed as non-f orens ic testi ng and these resul ts shoul d be used only by healt hcare provi ders to rende r diagn osis or treat ment, or to monit or progr ess of medic al condi tions . For esau fan with inter preti ng these drug resul ts, pleas e conta ct a [facility] T[facility] Speci alist : -40-R X TOX ( [phone] ), M-F, 8am-6 pm EST. Note 2 This test was devel oped and its chayo tical perfo rmanc e jef cteri stics have been deter mined by [facility]. It has not been clear ed or appro leonides by the FDA. This assay has been valid ated pursu ant to the CLIA regul ation s and is used for clini sheri purpo ses. Note 3 This drug testi ng is for medic al treat ment only. Chayo sis was perfo rmed as non-f orens ic testi ng and these resul ts shoul d be used only by [facility] to rende r diagn osis or treat ment, or to monit or progr ess of medic al condi tions . For esau fan with inter preti ng these drug resul ts, pleas e conta ct a [facility] Toxic olog[facility] Speci alist : --R X TOX ( [phone] ), M-F, 8am-6 pm EST. Not Available [employer]- [address] [place], [address], 04/11/2022 14:03:48 12/17/19 22 12/10/2021 , [facility] ardio gram No observ ation record ed. [email or web address] [facility] [address], [address], 01/09/2022 22:11:36 Result Notes None recorded. Problems Name Problem SNOMED Code Status Onset Date Resolution Date Notes Provider Name and Address Organization Details Recorded Time Onadeline mcgregor 390279011 Completed 05/29/2018 Papa Vazquez MD [address] [place] [address], [phone] , [facility] 8 21:55:43 Venous stasis 07413713 Active Not Available [facility] 2 08:25:34 Tear of meniscus of knee 705512498 Active Not Available [facility] 2 08:25:34 Vitamin deficien cy 52024510 Completed 05/08/2015 Courtney Santana NP [address] [place] [address], [address] , [facility] 6 14:13:41 Impotenc e of organic origin Completed 05/21/2015 Courtney Santana NP [address] [place] [address], [phone] , [facility] 6 14:13:41 Hypothyr oidism 45153991 Active Not Available [facility] 2 08:25:34 Vitamin D deficien cy 65878689 Active Not Available [facility] 2 08:25:34 Dyspnea 996926313 Completed 11/01/2012 Courtney Santana NP [address] [place] [address], [address] , [facility] 6 14:13:41 Dyspnea 052425826 Completed 03/16/2012 Courtney Santana NP [address] [place] [address], [address] , [facility] 6 14:13:41 Essentia l hyperten joceline 14437000 Active Not Available [facility] 2 08:25:34 Eruption 026113725 Completed 11/01/2012 Courtney Santana NP [address] [place] [address], [address] , [facility] 6 14:13:41 Disorder of male genital organ 24419287 Completed 11/16/2012 Courtney Santana NP [address] [place] [address], [address] , [facility] 6 14:13:41 Disorder of male genital organ 25635326 Completed 03/16/2012 Courtney Santana NP [address] [place] [address], [address] , [facility] 6 14:13:41 Fibromyo sitis 29282620 Completed 03/16/2012 Courtney Santana NP [address] [place] [address], [address] , [facility] 6 14:13:41 Pityrias is versicol or 32202171 Completed 11/01/2012 Courtney Santana NP [address] [place] [address], [address] , [facility] 6 14:13:41 Neck pain 13205651 Completed 05/08/2015 Courtney Santana NP [address] [place] [address], [address] , [facility] 6 14:13:41 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 Completed 05/21/2015 Courtney Santana NP [address] [place] [address], [address] , [facility] 6 14:13:41 Depressi ve disorder 28984307 Active Not Available [facility] 2 08:25:34 Irritabl e bowel syndrome 08853484 Active Not Available [facility] 2 08:25:34 Pneumoni a 445162068 Completed 11/01/2012 Courtney Santana NP [address] [place] [address], [address] , [facility] 6 14:13:41 Abdomina l pain 89485367 Completed 11/01/2012 Courtney Santana NP [address] [place] [address], [address] , [facility] 6 14:13:41 Acute frontal sinusiti s 41973074 Completed 03/16/2012 Courtney Santana NP [address] [place] [address], [address] , [facility] 6 14:13:41 Knee pain Completed 05/08/2015 Courtney Santana NP [address] [place] [address], [address] , [facility] 6 14:13:41 Disorder of ear 90515785 Completed 02/01/2012 Courtney Santana NP [address] [place] [address], [address] , [facility] 6 14:13:41 Low back pain 863848044 Active Not Available [facility] 2 08:25:34 Hyperlip idemia 78632704 Active goal <70 Not Available [facility] 2 08:25:34 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 on 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 Active with PCI 2003 Not Available [facility] 2 08:25:34 Sprain of elbow and forearm 656366817 Completed 12/09/2017 Papa Vazquez MD [address] [place] [address], [address] , [facility] 8 11:46:02 Arthropa thy 490491431 Active Not Available [facility] 2 08:25:34 Tobacco dependen ce syndrome 61862197 Completed 01/12/2018 Papa Vazquez MD [address] [place] [address], [address] , [facility] 8 14:08:54 Benign prostati c hyperpla jennifer 421194961 Active Not Available [facility] 2 08:25:34 Cough 96430319 Completed 05/21/2015 Papa Vazquez MD [address] [place] [address], [address] , [facility] 8 14:08:46 Tendon contract ure 895206927 Completed 05/29/2018 Papa Vazquez MD [address] [place] [address], [address] , [facility] 8 21:55:25 Fatigue 67644109 Completed 05/29/2018 Papa Vazquez MD [address] [place] [address], [address] , [facility] 8 21:55:56 Acquired trigger finger 1219350 Active mallet fx R 1st finger DIP 2017 Not Available [facility] 2 08:25:34 Cough 79587377 Completed 01/12/2018 Papa Vazquez MD [address] [place] [address], [address] , [facility] 8 14:08:46 Anaphyla xis 88119117 Completed 11/17/2018 Papa Vazquez MD [address] [place] [address], [address] , [facility] 9 19:05:48 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 1 14:37:42 Osteoart hritis 763211974 Active 2020 R hip and knee, wrist Not Available [facility] 2 08:25:34 Rheumato id arthriti s 59435195 Active 2021 Not Available [facility] 2 08:25:34 Infectio n of sebaceou s cyst 442125078 Active 2021 AIYANA GUALLPA-[address], [address] , [facility] 2 13:04:17 Degenera tion of cervical interver tebral disc 39379932 Completed 05/08/2015 Courtney Santana NP [address] [place] [address], [address] , [facility] 6 14:13:41 Cervical spondylo sis 366817038 Completed 05/08/2015 Courtney Santana NP [address] [place] [address], [address] , [facility] 6 14:13:41 Cervical spondylo sis with radiculo mitra Active Not Available [facility] 2 08:25:34 Dizzines s 530828360 Completed 05/29/2018 Papa Vazquez MD [address] [place] [address], [address] , [facility] 8 21:55:36 Sleep disorder 65839426 Active NICOLE, On [employer] 2015 Not Available [facility] 2 08:25:34 Notes:arteriosclerosis Problem Notes None recorded. Procedures Surgical History None recorded. Imaging Results Imaging Date Name Status LastModified by Organization Details LastModified Time 12/10/2021 , echocardiogram completed [email or web address] [facility] [address], [address], 01/09/2022 22:11:36 Procedure Notes None recorded. Medical Equipment None Reported. Allergies Allergen ID Allergen Name Allergen Category Reaction Reaction Severity Criticality Documentation Date Start Date Code Code System Note Provider Name and Address Organization Details Recorded Time 8470 honey bee venom environme nt other severe Not available 01/12/2018 22903 7 RxNorm redne ss, itch, swell ing Papa Vazquez MD [address] [place] [address], [phone], [facility] 8 13:32:28 No known drug allergies Medications Name Sig Start Date Stop Date Status Note LastModified by Organization Details LastModified Time Prescripti on - New 01/12 completed Back brace Not Available Not Available Not Available Prescripti on - Prior Authorizat ion Request 05/09 completed Not Available Not Available Not Available fluoxetine 40 mg capsule TAKE 1 CAPSULE(S ) EVERY DAY BY ORAL ROUTE FOR 30 DAYS. 01/12 completed Not Available Not Available Not Available atorvastat in 40 mg tablet TAKE 1 TABLET EVERY DAY 10/27 completed Not Available Not Available Not Available hydrocodon e 7.5 mg-ibuprof en 200 mg tablet active Not Available Not Available Not Available levothyrox ine 137 mcg tablet TAKE 1 TABLET(S) EVERY DAY BY ORAL ROUTE FOR 90 DAYS. active Not Available Not Available No t Available atorvastat in 80 mg tablet TAKE 1 TABLET BY MOUTH EVERY DAY active Not Available Not Available No t Available prednisone 10 mg tablet active Not Available Not Available Not Available doxycyclin e hyclate 100 mg capsule Take 1 capsule twice a day by oral route for 10 days. 12/20 completed Not Available Not Available Not Available ketoconazo le 2 % shampoo Apply by topical route daily as directed - see bottle instructi ons. active Not Available Not Available No t Available ciprofloxa taylor 750 mg tablet active Not Available Not Available Not Available loperamide 2 mg capsule active Not Available Not Available Not Available trazodone 50 mg tablet 10/27 completed Not Available Not Available Not Available azithromyc in 250 mg tablet active Not Available Not Available Not Available ibuprofen 800 mg tablet Take 1 tablet 3 times a day by oral route for 30 days. active Not Available Not Available No t Available citalopram 10 mg tablet Take 1 tablet every day by oral route. active Not Available Not Available No t Available dronabinol 5 mg capsule TAKE ONE CAPSULE NEEDED active Not Available Not Available No t Available hydrocodon e 5 mg-acetami nophen 325 mg tablet TAKE 1 TABLET BY MOUTH EVERY 6 HOURS FOR 8 DAYS 02/11 completed Not Available Not Available Not Available prednisone 5 mg tablet TAKE 1 TABLET BY MOUTH EVERY DAY IN THE MORNING active Not Available Not Available No t Available clindamyci n HCl 150 mg capsule active Not Available Not Available N ot Available metronidaz ole 500 mg tablet active Not Available Not Available Not Available clopidogre l 75 mg tablet active Not Available Not Available Not Available ciprofloxa taylor 500 mg tablet TAKE 1 TABLET(S) BY MOUTH TWICE A DAY FOR 21 DAYS. 05/12 completed Not Available Not Available Not Available sulfametho xazole 800 mg-trimeth oprim 160 mg tablet TAKE 1 TABLET BY MOUTH TWICE A DAY FOR 7 DAYS active Not Available Not Available No t Available hydrocodon e 10 mg-acetami nophen 325 mg tablet TAKE 1 TABLET BY MOUTH TWICE A DAY NEEDED active Not Available Not Available No t Available peg-electr olyte solution 420 gram oral solution USE DIRECTED active Not Available Not Available No t Available aspirin 81 mg tablet,del ayed release TAKE 1 TABLET BY MOUTH EVERY DAY active Not Available Not Available No t Available tramadol 50 mg tablet active Not Available Not Available Not Available amitriptyl ine 50 mg tablet Take 1 tablet twice a day by oral route for 30 days. active Not Available Not Available No t Available levothyrox ine 25 mcg tablet TAKE 1 TABLET BY MOUTH DAILY active Not Available Not Available No t Available lamotrigin e 25 mg tablet 12/20 completed Not Available Not Available Not Available levothyrox ine 75 mcg tablet TAKE 1 TABLET BY MOUTH EVERY DAY FOR 30 DAYS. active Not Available Not Available No t Available levothyrox ine 100 mcg tablet TAKE 1 TABLET BY MOUTH EVERY DAY active Not Available Not Available No t Available oxycodone- acetaminop hen 5 mg-325 mg tablet Take 1 tablet twice a day by oral route as needed for 30 days. 12/09 completed Not Available Not Available Not Available terbinafin e HCl 250 mg tablet TAKE 1 TABLET EVERY DAY active Not Available Not Available No t Available prednisolo ne acetate 1 % eye drops,susp ension INSTILL ONE DROP INTO OPERATIVE EYE THREE TIMES A DAY START TWO DAYS PRIOR TO SURGERY 12/20 completed Not Available Not Available Not Available Imodium A-D 2 mg tablet Take 2 tablets every 3 hours by oral route for 10 days. 06/12 completed Not Available Not Available Not Available oxycodone- acetaminop hen 5 mg-500 mg capsule active Not Available Not Available Not Available trazodone 100 mg tablet START WITH 1/2 TAB DAILY AND INCREASE 1/2 YAB EVERY 3 DAYS TILL TAKE 1 TABLET BY MOUTH TWICE A DAY active Not Available Not Available No t Available dicyclomin e 20 mg tablet Take 1 tablet 4 times a day by oral route as needed. active Not Available Not Available No t Available levothyrox ine 50 mcg tablet Take 1 tablet(s) every day by oral route. active Not Available Not Available No t Available ferrous sulfate 325 mg (65 mg iron) tablet TAKE 1 TABLET BY MOUTH EVERY DAY active Not Available Not Available No t Available fluoxetine 20 mg tablet TAKE 1 TABLET(S) EVERY DAY BY ORAL ROUTE FOR 30 DAYS. 05/12 completed Not Available Not Available Not Available triamcinol one acetonide 0.1 % topical ointment APPLY TOPICALLY TO FORELEGS TWICE A DAY WHERE DRY active Not Available Not Available No t Available ranitidine 150 mg tablet Take 1 tablet twice a day by oral route for 15 days. active Not Available Not Available No t Available clindamyci n phosphate 1 % topical swab active Not Available Not Available Not Available docusate sodium 100 mg capsule TAKE ONE CAPSULE POI TWICE A DAY NEEDED FOR CONSTIPAT ION. TAKE WITH PLENTY OF WATER 10/27 completed Not Available Not Available Not Available gabapentin 300 mg capsule TAKE 1 CAPSULE BY MOUTH THREE TIMES A DAY active Not Available Not Available No t Available Tylenol 325 mg tablet Take 3 tablets 3 times a day by oral route for 30 days. 03/10 completed Not Available Not Available Not Available etodolac 400 mg tablet active Not Available Not Available Not Available Nitrostat 0.3 mg sublingual tablet active Not Available Not Available Not Available mupirocin 2 % topical ointment active Not Available Not Available Not Available furosemide 20 mg tablet 01/12 completed Not Available Not Available Not Available epinephrin e 0.3 mg/0.3 mL injection, auto-injec tor INJECT ONCE NEEDED active Not Available Not Available No t Available ibuprofen 600 mg tablet Take 1 tablet 4 times a day by oral route as needed for 30 days. active Not Available Not Available No t Available polyethyle ne glycol 3350 17 gram/dose oral powder active Not Available Not Available Not Available fluticason e propionate 50 mcg/actuat ion nasal spray,susp ension SPRAY 2 SPRAYS INTO EACH NOSTRIL EVERY DAY active Not Available Not Available No t Available doxycyclin e hyclate 100 mg tablet 10/27 completed Not Available Not Available Not Available dicyclomin e 10 mg capsule TAKE 1 CAPSULE BY MOUTH 4 TIMES A DAY NEEDED FOR PAIN active Not Available Not Available No t Available naproxen 500 mg tablet 01/12 completed Not Available Not Available Not Available levothyrox ine 112 mcg tablet TAKE 1 TABLET BY MOUTH EVERY DAY active Not Available Not Available No t Available amoxicilli n 875 mg-potassi um clavulanat e 125 mg tablet 11/27 completed Not Available Not Available Not Available Ventolin HFA 90 mcg/actuat ion aerosol inhaler INHALE 2 PUFFS BY MOUTH EVERY 6 TO 8 HOURS NEEDED active Not Available Not Available No t Available oxycodone 5 mg tablet active Not Available Not Available Not Available Daily-Ben tablet TAKE 2 TABLETS BY MOUTH EVERY DAY 01/12 completed Not Available Not Available Not Available magnesium 200 mg tablet TAKE 1 TABLET BY MOUTH TWICE A DAY WITH MEALS 2020 active Not Available Not Available Not Avai lable metaxalone 800 mg tablet 01/12 completed Not Available Not Available Not Available moxifloxac in 0.5 % eye drops instill 1 drop three times a day; start 2 days prior to surgery in surgical eye, then taper as directed 12/20 completed Not Available Not Available Not Available Klor-Con M20 mEq tablet,ext ended release TAKE 1 TABLET BY MOUTH THREE TIMES A DAY WITH MEALS active Not Available Not Available No t Available Prilosec OTC 20 mg tablet,del ayed release TAKE 2 TABLETS BY MOUTH EVERY DAY 2011 active Not Available Not Available Not Avai lable bupropion HCl XL 150 mg 24 hr tablet, extended release TAKE 3 TABLETS BY MOUTH EVERY DAY active Not Available Not Available No t Available metoprolol tartrate 25 mg tablet TAKE 1 TABLET BY MOUTH TWICE A DAY active Not Available Not Available No t Available duloxetine 20 mg capsule,de layed release TAKE 1 CAPSULE BY MOUTH ONCE A DAY WITH MEALS 05/09 completed Not Available Not Available Not Available Flovent HFA 220 mcg/actuat ion aerosol inhaler INHALE 1 PUFF TWICE A DAY 10/27 completed Not Available Not Available Not Available coenzyme Q10 200 mg capsule TAKE 1 CAPSULE(S ) 3 TIMES A DAY BY ORAL ROUTE NEEDED. 01/12 completed Not Available Not Available Not Available sildenafil (pulmonary hypertensi on) 20 mg tablet 11/27 completed Not Available Not Available Not Available Anti-Gas Ultra Strength 180 mg capsule TAKE BY ORAL ROUTE 1 TAB BY MOUTH 4 TIMES A DAY NEEDED GAS PAIN active Not Available Not Available No t Available Chantix 1 mg tablet TAKE 1 TABLET 2 TIMES A DAY BY ORAL ROUTE. active Not Available Not Available No t Available calcium 600 mg (as carbonate) -vitamin D3 10 mcg (400 unit) tablet TAKE 1 TABLET BY MOUTH TWICE A DAY WITH MEALS active Not Available Not Available No t Available Calcium 600 with Vitamin D3 600 mg-10 mcg (400 unit) chewable tablet TAKE 1 TABLET BY MOUTH TWICE A DAY WITH MEALS active Not Available Not Available No t Available Men's Daily Multivitam in-Mineral 0.4 mg-600 mcg tablet Take 2 tablets every day by oral route for 90 days. 2012 active Not Available Not Available Not Avai lable Xifaxan 550 mg tablet 01/12 completed Not Available Not Available Not Available Suprep Bowel Prep Kit 17.5 gram-3.13 gram-1.6 gram oral solution 12/09 completed Not Available Not Available Not Available Vitamin D3 50 mcg (2,000 unit) capsule TAKE ONE CAPSULE BY MOUTH EVERY DAY active Not Available Not Available No t Available Daily Multiple For Men 0.4 mg tablet TAKE 2 TABLET(S) EVERY DAY BY ORAL ROUTE FOR 90 DAYS. active Not Available Not Available No t Available Natural Fiber Supplement (aspartame ) 3.4 gram/5.8 gram oral powder TAKE BY ORAL ROUTE DAILY 1 GLASS MIXED. active Not Available Not Available No t Available Chantix Starting Month Box 0.5 mg (11)-1 mg (42) tablets in dose pack Take by oral route as directed in package 1 tablet twice a day active Not Available Not Available No t Available Fiber (psyllium husk-sugar ) 3.4 gram/11 gram oral powder Take by oral route daily 1 glass as mixed. 2012 active Not Available Not Available Not Avai lable bupropion HCl XL 450 mg 24 hr tablet, extended release TAKE 1 TABLET BY MOUTH EVERY DAY 11/27 completed Not Available Not Available Not Available Linzess 290 mcg capsule 08/25 completed Not Available Not Available Not Available Ilevro 0.3 % eye drops,susp ension instill 1 drop daily; start 2 days prior to surgery in surgical eye, then taper as directed 05/09 completed Not Available Not Available Not Available Afluria 5150-3945( PF) 45 mcg (15 mcg x 3)/0.5 mL intramuscu lar syringe TO BE ADMINISTE RED BY PHARMACIS T FOR IMMUNIZAT ION active Not Available Not Available No t Available potassium chloride ER 20 mEq tablet,ext ended release TAKE 1 TABLET BY MOUTH THREE TIMES A DAY WITH MEALS 2021 active Not Available Not Available Not Avai lable Afluria ( PF) 45 mcg (15 mcg x 3)/0.5 mL intramuscu lar syringe TO BE ADMINISTE RED BY PHARMACIS T FOR IMMUNIZAT ION active Not Available Not Available No t Available Fluzone Quad (PF) 60 mcg (15 mcg x 4)/0.5 mL IM syringe TO BE ADMINISTE RED BY PHARMACIS T FOR IMMUNIZAT ION active Not Available Not Available No t Available naloxone 4 mg/actuati on nasal spray active Not Available Not Available Not Available Flucelvax Quad (PF) 60 mcg (15 mcg x 4)/0.5 mL IM syringe active Not Available Not Available N ot Available Flowflex COVID-19 Antigen Home Test kit active Not Available Not Available Not Available Vitals None Recorded Social History Question Answer Notes LastModified by Organizat ion Details LastModified Time Tobacco Smoking Status Former Smoker quit 2013 Not Available [facility] 06/04/2020 03:12:39 Do You Have An Advance Directive? Yes [id number] Information not available 06/04/2020 What Is Your Level Of Alcohol Consumption? Occasional [id number] Information not available 06/04/2020 What Is Your Level Of Caffeine Consumption? Heavy Was Extreme Before [id number] Information not available 06/04/2020 How Much Tobacco Do You Chew? None [id number] Information not available 06/04/2020 What Type Of Diet Are You Following? REGULAR [id number] Information not available 06/04/2020 Education 12 Information no t available 09/21/2012 What Is Your Occupation? Disabled [id number] Information not available 06/04/2020 Are There Any Guns Present In Your Home? No [id number] Information not available 06/04/2020 Marital Status Information not available 09/21/2012 What Was The Date Of Your Most Recent Tobacco Screening? 10/27/2018 [id number] Information not available 06/04/2020 Seat Belts Used Routinely Yes Information not available 01/12/2018 Smoke Alarm In Home Yes Information not available 09/21/2012 General Stress Level Low Information not available 09/21/2012 Do You Use Sunscreen Routinely? No [id number] Information not available 06/04/2020 Sex: Unknown Functional Status Question Answer Note LastModified by Organization D etails LastModified Time What is your exercise level? Moderate [id number] Information not available 06/04/2020 Mental Status None recorded. Family History Relationship Description Onset Age of this Age Resolved Age Notes LastModified by Organization Details LastModified Time Father Myocardial infarction previo usly record ed as Heart Attack (HI) [email or web address] Not available 05/08/2015 13:43:47 Father Malignant neoplastic disease previo usly record ed as Cancer [email or web address] Not available 05/08/2015 13:43:47 Maternal Grandmother Malignant neoplastic disease previo usly record ed as Cancer [email or web address] Not available 05/08/2015 13:43:47 Mother Cerebrovascu lar accident previo usly record ed as Stroke [email or web address] Not available 05/08/2015 13:43:47 Medical History No medical history recorded. Immunizations Vaccine Type Date Status Note Provider Nam e and Address Organization Details Recorded Time Influenza, MDCK, quadrivalent, PF 05/14/2019 completed Papa Vazquez MD [address] [place] [address], [phone], [facility] 09/23/2021 09:17:49 COVID-19, mRNA, LNP-S, PF, 100 mcg/0.5mL dose or 50 mcg/0.25mL dose 11/08/2020 completed Papa Vazquez MD [address] [place] [address], [phone], [facility] 09/23/2021 09:17:49 Past Encounters Encounter ID Performer Location Encounter Start Date Encounter Closed Date Diagnosis/Indication Diagnosis SNOMED-CT Code Diagnosis ICD10 Code Diagnosis Note [id number] Papa Vazquez MD MAIN [address] [address] 09/29/2007 15:57:05 09/29/2007 15:57:19 [id number] Papa Vazquez MD MAIN [address] [address] 01/09/2008 11:38:23 01/09/2008 11:38:26 [id number] Papa Vazquez MD MAIN [address] [address] 01/26/2008 10:23:03 01/26/2008 14:53:32 [id number] Papa Vazquez MD MAIN [address] [address] 02/23/2008 13:25:50 02/23/2008 13:25:53 1970 Courtney Santana NP [address] [address] 03/15/2008 08:56:14 03/15/2008 08:56:17 9 Papa Vazquez MD [address] [address] 04/12/2008 15:37:45 04/12/2008 15:37:48 [id number] Papa Vazquez MD [address] [address] 04/19/2008 14:26:13 04/19/2008 14:26:16 [id number] Papa Vazquez MD [address] [address] 05/17/2008 14:56:33 05/17/2008 14:56:36 [id number] Papa Vazquez MD [address] [address] 06/14/2008 14:49:49 06/14/2008 14:49:52 [id number] Papa Vazquez MD [address] [address] 01/02/2009 12:36:11 01/02/2009 16:09:05 [id number] Papa Vazquez MD [address] [address] 02/11/2009 15:18:18 02/13/2009 20:55:49 [id number] Courtney Santana NP [address] [address] 02/18/2009 12:35:35 02/19/2009 09:38:19 [id number] Courtney Santana NP [address] [address] 02/19/2009 15:54:12 02/20/2009 20:18:25 [id number] Papa Vazquez MD [address] [address] 03/06/2009 11:10:10 03/06/2009 14:38:50 [id number] Courtney Santana NP MAIN SHOP [address] [place] [address] [place] [address] 03/26/2009 16:35:11 03/27/2009 17:11:29 [id number] Courtney Santana NP MAIN [address] [place] [address] 04/11/2009 12:30:31 04/11/2009 20:05:35 [id number] Courtney Santana NP MAIN SHOP [address] [place] [address] [place] [address] 05/27/2009 11:37:42 06/07/2009 16:57:20 [id number] Courtney Santana NP MAIN SHOP [address] [place] [address] [place] [address] 07/22/2009 13:04:30 07/23/2009 14:58:03 [id number] Cuortney Santana NP MAIN SHOP [address] [place] [address] [place] [address] 08/21/2009 16:01:22 08/22/2009 15:39:42 [id number] Courtney Santana NP MAIN SHOP [address] [place] [address] [place] [address] 10/01/2009 09:34:46 10/02/2009 09:35:31 [id number] Courtney Santana NP [address] [place] [address] 10/29/2009 09:58:27 10/29/2009 12:00:23 [id number] Courtney Santana NP MAIN [address] [place] [address] 11/19/2009 10:35:08 11/19/2009 16:30:41 [id number] Papa Vazquez MD MAIN [address] [place] [address] 02/12/2010 12:37:13 02/14/2010 05:20:11 [id number] Courtney Santana NP MAIN [address] [place] [address] 03/17/2010 12:21:35 03/20/2010 12:06:15 [id number] Papa Vazquez MD MAIN SHOP [address] [place] [address] 05/14/2010 13:26:55 05/15/2010 12:48:30 [id number] Papa Vazquez MD MAIN [address] [address] 09/24/2010 13:51:03 10/03/2010 09:53:27 [id number] Papa Vazquez MD [address] [address] 11/20/2010 13:35:34 11/21/2010 12:49:26 [id number] Papa Vazquez MD MAIN [address] [address] 01/14/2011 10:15:56 01/15/2011 13:41:31 [id number] Papa Vazquez MD [address] [address] 08/06/2011 12:52:47 08/06/2011 14:44:43 [id number] Papa Vazquez MD [address] [address] 02/01/2012 11:45:28 02/01/2012 13:03:12 [id number] Papa Vazquez MD [address] [address] 03/16/2012 14:10:04 03/16/2012 14:46:11 [id number] Papa Vazquez MD [address] [address] 08/10/2012 14:10:46 08/12/2012 20:55:44 [id number] Papa Vazquez MD [address] [address] 09/21/2012 10:48:24 09/22/2012 09:35:55 [id number] Papa Vazquez MD [address] [address] 11/01/2012 09:56:26 11/01/2012 11:13:55 [id number] Papa Vazquez MD [address] [address] 11/16/2012 11:03:06 11/17/2012 13:36:38 [id number] Papa Vazquez MD [address] [address] 12/06/2012 12:43:50 12/06/2012 13:41:51 [id number] Papa Vazquez MD [address] [address] 01/24/2013 12:48:06 01/24/2013 14:50:30 [id number] Papa Vazquez MD [address] [address] 01/27/2013 11:01:47 02/02/2013 03:46:58 [id number] Papa Vazquez MD [address] [address] 02/08/2013 11:23:14 02/08/2013 13:35:51 [id number] Papa Vazquez MD [address] [address] 03/09/2013 10:14:12 03/09/2013 10:40:20 [id number] Papa Vazquez MD [address] [address] 04/04/2013 10:53:22 04/04/2013 11:00:03 Degeneration of cervical intervertebral disc 89100351 possible surgery if pt no help. will ask pt for tens unit Cervical spondylosis [id number] Cervical s pondylosis with radiculopathy 452625707 Dizziness [id number] walk ed into town on hot day and dizzy, tired. sweating profusely; [place] [id number] Papa Vazquez MD [address] [address] 05/05/2013 10:16:22 05/05/2013 11:36:12 Degeneration of cervical intervertebral disc 47624727 possible surgery if pt no help. will ask pt for tens unit Irritable bowel syndrome 86721831 [id number] Papa Vazquez MD [address] [address] 06/02/2013 09:41:29 06/02/2013 11:44:19 Degeneration of cervical intervertebral disc 00046607 possible surgery if pt no help. will ask pt for tens unit Irritable bowel syndrome 74779542 [id number] Papa Vazquez MD [address] [address] 07/03/2013 12:00:59 07/03/2013 14:00:53 Degeneration of cervical intervertebral disc 78783459 possible surgery if pt no help. will ask pt for tens unit Irritable bowel syndrome 87875573 Onychomycosis 764216268 [id number] Papa Vazquez MD [address] [address] 08/05/2013 10:03:49 08/05/2013 10:22:27 Degeneration of cervical intervertebral disc 96775799 possible surgery if pt no help. will ask pt for tens unit Irritable bowel syndrome 79774636 Onychomycosis 522649412 [id number] Papa Vazquez MD [address] [address] 09/04/2013 14:14:59 09/04/2013 15:56:41 Degeneration of cervical intervertebral disc 83028747 possible surgery if pt no help. will ask pt for tens unit Irritable bowel syndrome 92896862 Onychomycosis 284512168 Venous stasis 63357448 [id number] Papa Vazquez MD [address] [address] 10/04/2013 18:30:18 10/04/2013 18:37:55 Degeneration of cervical intervertebral disc 96992813 possible surgery if pt no help. will ask pt for tens unit Irritable bowel syndrome 46376736 [id number] Papa Vazquez MD [address] [address] 10/30/2013 10:00:34 10/30/2013 14:19:15 Degeneration of cervical intervertebral disc 40754522 TENS Home PT Irritable bowel syndrome 51124017 [id number] Papa Vazquez MD [address] [address] 12/28/2013 08:49:47 01/13/2014 14:59:27 Degeneration of cervical intervertebral disc 59890427 TENS Home PT Irritable bowel syndrome 26035829 Depressive disorder 36518427 [id number] Papa Vazquez MD [address] [address] 02/19/2014 12:48:07 02/19/2014 13:53:13 Degeneration of cervical intervertebral disc 71556266 possible surgery if pt no help. will ask pt for tens unit Tear of me niscus of knee 519988581 [id number] Papa Vazquez MD [address] [address] 04/20/2014 09:31:36 04/25/2014 11:30:12 Degeneration of cervical intervertebral disc 08908450 PT eased sx's mj removes anxiety and most pain more effectivel y than percocet mj card eval and given 04/15 Tear of me niscus of knee 011561945 Sleep disorder 56443019 apnea eased by cpap [id number] Papa Vazquez MD [address] [address] 05/16/2014 13:06:14 05/16/2014 16:09:55 Arthropathy 561119904 marinol works but difficulty affording it. using about 6 per week. finds himself not focusing on pain as much. tiring to only think about pain; now more in the back ground. script given today as I don''t think refills will work for this medication . we can give multiple scripts of smaller ants if patient unable to afford #30 at one stop at the doctors. Vitamin deficiency 05784344 Impotence of organic origin 531383183 patient visibly upset with the subject; lets rule out a physical problem before considerin g viagra; they are very concerned with the possible detrimenta l se of viagra with Bill's heart condition. fu with i after labs done [id number] Papa Vazquez MD [address] [address] 06/26/2014 13:19:59 06/26/2014 13:51:13 Hypothyroidism 02817111 Vitamin D deficiency 30933392 Onychomycosis 423283197 [id number] Papa Vazquez MD [address] [address] 04/02/2015 14:21:15 04/02/2015 15:07:36 Impotence of organic origin 878316107 Tear of me niscus of knee 205483192 Hypothyroidism 13529819 [id number] Papa Vazquez MD [address] [address] 05/08/2015 13:30:48 05/08/2015 14:41:36 Benign prostatic hyperplasia 666063256 D29.1 mild internal middle lobe enlargemen t by hx of decreased stream Cough 09981721 R05 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 Irritable bowel syndrome 00063385 K58.9 Hypothyroidism 10709516 E03.9 [id number] Papa Vazquez MD [address] [address] 0 12/10/2015 11:55:28 12/10/2015 15:18:14 Fatigue 06673087 R53.83 Acquired t vice president of academic affairs finger 9282313 M65.30 [id number] Papa Vazquez MD [address] [address] 12/24/2015 10:37:44 12/26/2015 09:13:05 Depressive disorder 63685350 F32.9 Cough 37796790 R05 [id number] Papa Vazquez MD [address] [address] 0 01/29/2016 17:41:32 01/30/2016 17:26:51 Cough 87943884 R05 [id number] Papa Vazquez MD [address] [address] 0 04/28/2016 14:11:35 04/28/2016 15:46:23 Irritable bowel syndrome 25673283 K58.9 Low back pain 322193885 M54.5 Depressive disorder 3548 9007 F32.9 [id number] Papa Vazquez MD [address] [address] 0 08/25/2016 12:28:22 08/25/2016 14:02:42 Cough 98614688 R05 Fatigue 38124596 R53.83 Bradycardia 27346702 R00 .1 [id number] Papa Vazquez MD MAIN [address] [address] 12/09/2017 10:44:32 12/12/2017 07:36:40 Neuropathy 256640697 G62.9 possible, diagnostic studies pending [id number] Papa Vazquez MD MAIN [address] [address] 01/12/2018 13:13:52 01/13/2018 08:46:37 Irritable bowel syndrome 74833785 K58.9 Acquired t vice president of academic affairs finger 0174941 M65.30 Cervical s pondylosis with radiculopathy 191935790 M47.22 Low back pain 059440104 M54.5 Depressive disorder 3548 9007 F32.9 Onychomycosis 678708203 B35.1 Fatigue 37565772 R53.83 Hypothyroidism 82406282 E03.9 Sleep disorder 58872030 G47.9 apnea eased by cpap Essential hypertension 98323495 I10 Hyperlipidemia 52684109 E78.5 Chronic as thmatic bronchitis 855580120 J44.9 Former hea vy tobacco smoker 5716695385 16421 Z87.891 [id number] Papa Vazquez MD MAIN SHOP [address] [place] [address] 10/27/2018 11:48:35 10/27/2018 13:38:05 Bilateral cataracts 95238107 H26.9 preop today; i want his lungs clear and cxr and will clear on mon or tue at fu Cough 81333475 R05 fu this mon or two Abscess 308372768 L02.91 left first finger, abscess; treat [id number] Papa Vazquez MD MAIN [address] [address] 11/01/2018 12:26:23 11/01/2018 13:14:15 Foot pain 31677554 M79.671 [id number] Papa Vazquez MD MAIN [address] [address] 11/29/2018 09:50:13 11/29/2018 11:39:48 Jaundice 66003356 R17 Right lowe r quadrant pain 041316126 R10.31 Left inguinal hernia 236 113146 K40.90 [id number] Papa Vazquez MD MAIN [address] [address] 12/20/2018 11:28:05 12/21/2018 09:57:46 Depressive disorder 79928977 F32.9 Anemia 783546529 D64.9 Psychosexu al counseling 949055927 Z70.9 Cramp in lower limb 4499 09541 R25.2 [id number] Papa Vazquez MD MAIN [address] [address] 01/10/2019 11:21:51 01/16/2019 08:54:53 Lack of libido 630867514 R68.82 [id number] Papa Vazquez MD [address] [address] 04/06/2019 13:59:31 04/13/2019 08:53:39 Dyspnea on exertion 34217319 R06.09 [id number] Papa Vazquez MD MAIN [address] [address] 05/09/2019 13:23:12 05/22/2019 08:55:41 Depressive disorder 02390893 F32.9 Atheroscle rosis of arteries of the extremities 22138158 I70.209 Irritable bowel syndrome 37074117 K58.9 Sleep disorder 97793759 G47.9 apnea eased by cpap Arthropathy 866632332 M1 2.9 Allergic rhinitis 141941 04 J30.9 Hypothyroidism 34988594 E03.9 Anemia 590985646 D64.9 [id number] Papa Vazquez MD [address] [address] 05/24/2019 14:08:19 05/24/2019 15:32:26 Pain of hip region 04919546 M25.559 Knee pain 93023470 M25.5 69 [id number] Papa Vazquez MD MAIN [address] [address] 08/29/2019 13:02:12 09/13/2019 13:29:34 Lack of libido 424169397 R68.82 [id number] Papa Vazquez MD [address] [address] 11/27/2020 14:00:46 11/27/2020 16:51:08 Sleep disorder 41635908 G47.9 Coronary arteriosclerosis 53469103 I25.10 Asthma 294896554 J45.90 9 Hypothyroidism 83749151 E03.9 Adult heal th examination 948375441 Z00.00 [id number] Papa Vazquez MD [address] [address] 03/06/2021 12:39:21 03/06/2021 13:59:35 Hypothyroidism 04516796 E03.9 Disorder o f thyroid gland 74031002 E07.9 [id number] Papa Vazquez MD [address] [address] 0 03/12/2021 13:29:59 03/12/2021 14:13:47 Osteoarthritis 784945810 M19.90 Hypothyroidism 81088604 E03.9 [id number] Papa Vazquez MD [address] [address] 09/09/2021 08:53:44 09/22/2021 15:59:27 Hand pain 47762475 M79.643 Osteoarthritis 857154975 M19.90 [id number] Papa Vazquez MD [address] [address] 0 09/23/2021 08:55:27 09/23/2021 10:17:11 Hand pain 61345774 M79.643 Osteoarthritis [id number] M19.90 Atheroscle rosis of arteries of the extremities [id number] I70.209 [id number] Papa Vazquez MD [address] [phone] 10/22/2021 11:27:00 10/29/2021 16:33:01 Rheumatoid arthritis [id number] M06.9 Sleep disorder [id number] G47.9 [id number] Papa Vazquez MD [address] [address] 01/14/2022 14:45:59 01/14/2022 16:11:58 Rheumatoid arthritis 01276918 M06.9 Venous stasis [id number] I 87.8 [id number] Papa Vazquez MD [address] [phone] 02/11/2022 13:48:17 02/11/2022 15:42:58 Arthropathy [id number] M25.9 [id number] Papa Vazquez MD [address] [address] 02/25/2022 10:54:27 02/25/2022 12:44:24 Osteoarthritis 283254275 M19.90 Osteoarthr itis of knee 098111779 M17.9 Chronic pain syndrome 37 6384672 G89.4 Cervical s pondylosis with radiculopathy 995891424 M47.22 [id number] Papa Vazquez MD [address] [phone] 03/11/2022 12:57:18 03/11/2022 13:53:37 Poor short-term memory [id number] R41.3 Medication review done [id number] Z76.89 Osteoarthr itis of left hip joint [id number] 32554 M16.12 [id number] Papa Vazquez MD [address] [address] 04/08/2022 11:53:16 04/08/2022 14:36:28 Infection of sebaceous cyst 644148215 L72.3 Low back pain 311244679 M54.50 Osteoarthritis 691685979 M19.90 Health Concerns Section Related Observation LastModified by Organization Detai ls LastModified Time None Recorded Concern Status LastModified by Organization Details LastModified Time None Recorded Advance Directives Directive Y: Payers Encounter Date Sequence Insurance Name Policy Number Policy Echols Covered Member ID Echols Member ID Guarantor Name 01/14/2022 1 [facility] - DOS PRIOR TO 2022 - DUAL ELIGIBLE (MEDICARE REPLACEMENT/AD VANTAGE - HMO) Elder Hess [id number] Elder Hess 02/11/2022 1 [facility] - DOS PRIOR TO 2022 - DUAL ELIGIBLE (MEDICARE REPLACEMENT/AD VANTAGE - HMO) Elder Hess [id number] Elder Hess 02/25/2022 1 [facility] PRIOR TO 2022 - DUAL ELIGIBLE (MEDICARE REPLACEMENT/AD VANTAGE - HMO) Elder Hess [id number] Elder Hess 03/11/2022 1 [facility] - DOS PRIOR TO 2022 - DUAL ELIGIBLE (MEDICARE REPLACEMENT/AD VANTAGE - HMO) Elder Hess [id number] Elder Hess 04/08/2022 1 [facility] PRIOR TO 2022 - DUAL ELIGIBLE (MEDICARE REPLACEMENT/AD VANTAGE - HMO) Elder Hess [id number] Elder Hess
== END 2024-12-06 13:06 | disposition home or self-care (01) ==
LOC: HO.RHES 12:24
PROVIDERS: PCP Nurse Practitioner Gerontology; Visit Provider Internal Medicine Rheumatology
DX: M05.9 Rheumatoid arthritis with rheumatoid factor, unspecified (principal); Z79.631 Long term (current) use of antimetabolite agent
CPT/HCPCS: 99214; G2211

== ENCOUNTER 2024-12-06 12:24 | Outpatient (REF) | payer OTHER, SELFPAY ==
[2024-12-06 18:02] LABS: MANUAL DIFF FLAG NO
[2024-12-06 18:19] LABS: Basophils Absolute Auto 0.1 X10*3/uL (0.0-0.2); Basophils Percent Auto 0.7 % (0-2); Eosinophils Absolute Auto 0.3 X10*3/uL (0.0-0.4); Eosinophils Percent Auto 3.7 % (0-4); Hematocrit 38.7 % (42.0-52.0); Hemoglobin 12.5 g/dl (14.0-18.0); Imm Gran Abs Auto 0.13 X10*3/uL (0.00-0.03); Imm Gran Pct Auto 1.6 % (0.0-0.4); Lymphocytes Absolute Auto 0.9 X10*3/uL (1.2-4.9); Lymphocytes Percent Auto 11.2 % (20-40); Mean Corpuscular HGB Conc 32.3 g/dl (31.0-36.0); Mean Corpuscular Hemoglobin 32.6 pg (27.0-33.0); Mean Platelet Volume 11.2 fL (9.4-12.4); Monocytes Absolute Auto 0.8 X10*3/uL (0.1-1.2); Monocytes Percent Auto 9.5 % (2-11); Neutrophils Percent Auto 73.3 % (45-73); Platelet Count 171 X10*3/uL (160-400); Red Blood Count 3.83 X10*6/uL (4.60-5.80); Red Cell Distribution Width 14.5 % (11.0-16.0); White Blood Count 8.1 X10*3/uL (4.8-10.8)
[2024-12-06 18:35] LABS: Alanine Aminotransferase 53 U/L (0-40); Aspartate Amino Transferase 29 U/L (5-37); C Reactive Protein < 0.10 mg/dL (< or = 0.50); Estimated Glomerular Filt Rate > 60
[2024-12-06 18:56] LABS: Erythrocyte Sedimentation Rate 9 MM/HR (0-15)
== END 2024-12-06 12:25 | disposition home or self-care (01) ==
LOC: HO.HKASLDS 12:24
PROVIDERS: PCP Nurse Practitioner Gerontology; Visit Provider Internal Medicine Rheumatology
DX: M05.9 Rheumatoid arthritis with rheumatoid factor, unspecified (principal); M06.341 Rheumatoid nodule, right hand; R05.9 Cough, unspecified; Z79.60 Long term (current) use of unspecified immunomodulators and immunosuppressants; Z79.631 Long term (current) use of antimetabolite agent; Z79.899 Other long term (current) drug therapy
CPT/HCPCS: 36415; 82565; 84450; 84460; 85025; 85652; 86140; 99212

== ENCOUNTER 2025-03-13 13:22 | Outpatient (REF) | payer OTHER, SELFPAY ==
[2025-03-13 17:57] LABS: MANUAL DIFF FLAG NO
[2025-03-13 18:00] LABS: Hematocrit 39.4 % (42.0-52.0); Hemoglobin 13.3 g/dl (14.0-18.0); Imm Gran Abs Auto 0.07 X10*3/uL (0.00-0.03); Imm Gran Pct Auto 0.8 % (0.0-0.4); Lymphocytes Absolute Auto 0.6 X10*3/uL (1.2-4.9); Mean Corpuscular HGB Conc 33.8 g/dl (31.0-36.0); Mean Corpuscular Hemoglobin 33.3 pg (27.0-33.0); Mean Corpuscular Volume 98.5 fL (80.0-98.0); NRBC Abs Auto 0.000 X10*3/uL (0.0-0.012); NRBC Pct Auto 0.0 /100WBC (0.0-0.2); Platelet Count 187 X10*3/uL (160-400); Red Blood Count 4.00 X10*6/uL (4.60-5.80); White Blood Count 8.5 X10*3/uL (4.8-10.8)
[2025-03-13 18:28] LABS: Alanine Aminotransferase 78 U/L (0-40); Aspartate Amino Transferase 35 U/L (5-37); Estimated Glomerular Filt Rate > 60
== END 2025-03-13 13:23 | disposition home or self-care (01) ==
LOC: HO.HKASLDS 13:22
PROVIDERS: PCP Nurse Practitioner Gerontology; Visit Provider Internal Medicine Rheumatology
DX: M05.9 Rheumatoid arthritis with rheumatoid factor, unspecified (principal); M65.98 Unspecified synovitis and tenosynovitis, other site; Z51.81 Encounter for therapeutic drug level monitoring; Z79.631 Long term (current) use of antimetabolite agent; Z79.899 Other long term (current) drug therapy
CPT/HCPCS: 36415; 82565; 84450; 84460; 85025; 85652; 86140; 99212

== ENCOUNTER 2025-03-13 13:22 | Outpatient (AMB) | payer OTHER, SELFPAY ==
--- NOTE | 2025-03-13 13:25 | MHC.OFFVIS ---
Vital Signs 03/13/25 13:26 Height 5 ft 10 in Weight 180 lb 1.883 oz BMI 25.8 BP 140/100 H Blood Pressure Location Rt brachial Position Sitting Pulse 73 Pulse Source Pulse Oximeter Pulse Oximetry (%) 96 Oxygen Delivery Method Room Air Intake Visit Reasons: 3 Months Intake Note: Patient presents today for a RA follow up Accompanied by: Self / Same As Patient Allergies bee pollen Allergy (Mild, Verified 03/13/25 13:26) Unknown codeine Allergy (Mild, Verified 03/13/25 13:26) Unknown honey Allergy (Mild, Verified 03/13/25 13:26) Unknown adhisive Allergy (Mild, Uncoded 03/13/25 13:33) rash HPI HPI 3 Months: Details: MS none Right hand is painful. Nodule on left 5th MCP is red in the morning. R testicle removed 2 weeks ago to treat chronic epididymitis. No infection. Wound is healing. [facility] Medical History Torn Achilles tendon Ex-smoker Productive cough Moderate pain Polyarthropathy Osteoarthritis Irritable bowel syndrome Peripheral vascular disease Carotid artery stenosis Bradycardia Coronary arteriosclerosis Myocardial infarction Neuropathy Central sleep apnea syndrome Major depressive disorder Anemia Hyperlipidemia Hypothyroidism Surgical History History of orchiectomy Hx of hand surgery Stented coronary artery H/O eye surgery H/O colonoscopy Family History Brother Malignant tumor of colon Father Carcinoma of prostate Maternal Grandmother Cancer of unknown origin Social History Alcohol intake: never Patient Tobacco Use Status: Former Tobacco user Current occupational status: retired 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 Good respiratory effort Skin: No lesions seen MSK: Synovitis right 3rd PIP. Rheumatoid nodule present on right 5th MCP and palmar aspect of bilateral IPs (new on right side), chronic synovial thickening present left 2nd and 3rd MCP. He has nodule near left extensor surface of elbow. Full range of motion of upper extremity. Limited external rotation of bilateral hips right worse than left. Good knee flexion. Assessment & Plan Assessment & Plan (1) Seropositive rheumatoid arthritis: Comment: Inflammatory arthritis and continues disease is not controlled on monotherapy with methotrexate. Rx for leflunomide might was not sent after labs were done. We discussed treatment with leflunomide. He did not like the cardiac side effects of hydroxychloroquine, which is why he did not start it. Rheumatology history: Seropositive (rheumatoid factor and anti CCP antibody), dx 01/22 left olecranon synovial fluid inflammatory, rheumatoid nodules. MTX 08/2022-. He has benefited with being on methotrexate but he continues to have active inflammatory arthritis with new development of rheumatoid nodules, which are progressing. He prefers to be on conventional DMARDs. He does not want to try hydroxychloroquine due to cardiac side effect. Leflunomide 03/2025- Code(s): M05.9 - Rheumatoid arthritis with rheumatoid factor, unspecified Category: Medical Plan: Labs ordered to assess disease and drug monitoring on high-risk medication ordered this visit Continue methotrexate 25 mg once weekly split dose Continue folic acid 1 mg daily Start leflunomide 10 mg daily. He will then need labs in 1 at [facility] [place] after starting leflunomide: CBC, creatinine, AST, ALT. Requisition given to patient. 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 (current) drug therapy Creatinine 1 Month Z79.899 - Other care home (current) drug therapy C Reactive Protein 1 Month Z79.899 - Other care home (current) drug therapy Erythrocyte Sedimentation Rate 1 Month Z79.899 - Other 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 (current) drug therapy Complete Blood Count Auto Diff Today Z79.899 - Other 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 (current) drug therapy Creatinine Today Z79.899 - Other 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 (current) drug therapy C Reactive Protein Today Z79.899 - Other 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 (current) drug therapy Erythrocyte Sedimentation Rate Today Z79.899 - Other care home (current) drug therapy Alanine Aminotransferase 1 Month Z79.899 - Other care home (current) drug therapy Aspartate Amino Transferase 1 Month Z79.899 - 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
[2025-03-13 13:26] VITALS: BP 140/100; PULSE 73; O2SAT 96; BMI 25.8
--- OUTSIDE RECORDS SUMMARY | 2025-03-13 14:10 | XMS_ITS | Clinical Summary ---
Author Organization [facility] Address [address] [place] [address] Phone Care Team Providers Care Building Trades Instructor Name Role Phone Unknown, Unknown Primary Care Provider Andree hernandez Medications multivit with min-folic acid (DAILY MULTIPLE FOR MEN) 0.4 mg Tab Daily Multiple For Men 0.4 mg tablet TAKE 2 TABLET(S) EVERY DAY BY ORAL ROUTE FOR 90 DAYS. Active albuterol (VENTOLIN HFA) 90 mcg/actuation inhaler Ventolin HFA 90 mcg/actuation aerosol inhaler INHALE 2 PUFFS BY MOUTH EVERY 6 TO 8 HOURS NEEDED Active amitriptyline (ELAVIL) 50 MG tablet daily. Active aspirin 81 MG EC tablet aspirin 81 mg tablet,delaye d release Active atorvastatin (LIPITOR) 80 MG tablet TAKE 1 TABLET BY MOUTH EVERY DAY Active buPROPion (WELLBUTRIN XL) 150 MG ER 24 hr tablet Take 1 tablet by mouth daily. Active cholecalciferol (VITAMIN D3) 2,000 unit capsule Take 1 capsule by mouth daily. Active etodolac (LODINE) 400 MG tablet etodolac 400 mg tablet Active Immunizations Immunization Administration Dates Next Due COVID-19 (Pre-05/24) Moderna Vaccine, mRNA, PF 11/08/2020 Influenza Quadrivalent MDCK Preservative Free IM 05/14/2019 Tdap 08/27/2017,09/30/2012,06/06/2011 Zoster recombinant 12/11/2021 Family History Medical History Relation Comments Cancer Brother Cancer Father Relation Status Comments Brother Father Social History Tobacco Use Types Packs/Day Years Used Date Smoking Tobacco: Never Assessed Education Answer Date Recorded Are you interested in more education? Not on sharda e 11/27/2022 Are you concerned about learning? Not on file 11/27/2022 No 11/27/2022 No 11/27/2022 Digital Access Answer Date Recorded No 12/26/2022 No 12/26/2022 Reliable internet access at home? Not on file 12/26/2022 Device with a working camera? Not on file Sex and Gender Information Value Date Recorded Sex Assigned at Not on file Legal Sex Male 10:35 PM EDT Gender Identity Not on file Sexual Orientation Not on file Plan of Treatment Health Maintenance Due Date Last Done Comments LIPID PANEL 1955 DEPRESSION SCREENING 1967 SMOKING Hx and SMOKELESS TOBACCO SCREENING 1968 HEPATITIS C SCREENING 1973 COLOGUARD 2000 COLONOSCOPY 2000 COLORECTAL CANCER SCREENING 2000 FIT TEST 2000 FOBT 2000 SIGMOIDOSCOPY 2000 VIRTUAL COLONOSCOPY 2000 PNEUMOCOCCAL VACCINES (50+ years) (1 of 1 - PCV) 2005 ZOSTER VACCINES (2 of 2) 02/05/2022 12/11/2021 COVID-19 VACCINE ( season) 2024 12/11/2021, 12/02/2020, 11/08/2020, Additional history exists Adult Td,Tdap Booster 08/27/2027 08/27/2017 , 09/30/2012, 06/06/2011 RSV VACCINE (1 - 1-dose 75+ series) 2030 HEPATITIS A VACCINES Aged Out No long er eligible based on patient's age to complete this topic HIB VACCINES Aged Out No longer eligi ble based on patient's age to complete this topic MENINGOCOCCAL VACCINES (ACWY) Aged Out No longer eligible based on patient's age to complete this topic MENINGOCOCCAL VACCINES (B) Aged Out N o longer eligible based on patient's age to complete this topic Medical Devices Not on file Insurance [facility] MEDICARE REPL[facility] RE[facility] [id number] [facility]IC[facility] RE[facility] MEDICARE REPLACEMENT [facility] [place] [address] [facility]IC[facility] RE[facility]ACEMENT [facility] MEDIC[facility] REPLACEMENT Care Teams Building Trades Instructor Relationship Specialty Start Date End Date Unknown, Unknown, PCP - General 11/26/21 Additional Source Comments The information contained in this document represents components of the legal health record. It is not the complete legal health record.[facility]
== END 2025-03-13 14:04 | disposition home or self-care (01) ==
LOC: HO.RHES 13:23
PROVIDERS: PCP Nurse Practitioner Gerontology; Visit Provider Internal Medicine Rheumatology
DX: M05.9 Rheumatoid arthritis with rheumatoid factor, unspecified (principal); Z79.631 Long term (current) use of antimetabolite agent
CPT/HCPCS: 99214; G2211